=== PATIENT | female | born 1995 | race African-American/Black ===

== ENCOUNTER 2016-04-26 17:06 | Emergency (ER) | payer SELFPAY ==
[~2016-04-26] VITALS: Ht 167.6 cm; Wt 77.1 kg
[2016-04-26 17:48] VITALS: BP 104/61
== END 2016-04-26 18:32 | disposition left against medical advice (07) ==
LOC: ER 17:06
DX: R10.84 Generalized abdominal pain (principal); N93.9 Abnormal uterine and vaginal bleeding, unspecified; Z53.21 Procedure and treatment not carried out due to patient leaving prior to being seen by health care provider
CPT/HCPCS: 81025

== ENCOUNTER 2016-05-13 19:14 | Emergency (ER) | payer SELFPAY ==
[~2016-05-13] VITALS: Ht 167.6 cm; Wt 70.3 kg
[2016-05-13] MEDS ORDERED: IV NORMAL SALINE 1000ML BAG 1,000 ML IV SCH (23:00)
[2016-05-13] MEDS ORDERED: MORPHINE SULFATE 4 MG/ML DISP.SYRIN. IV ONE (23:00)
--- NOTE | 2016-05-14 00:07 | PHYS DOC ---
Past Medical History Past Medical History: Sickle Cell Disease, STD, Other Additional Past Medical Histor: sickle cell Past Surgical History: No Surgical History Alcohol Use: None Drug Use: None Adult General Chief Complaint Chief Complaint: MULTIPLE COMPLAINTS HPI HPI Patient is a 20 year old female who presents with sickle crisis. Patient reports shortly before coming to the ED she started having pain in her right flank, bilateral lower extremities, tight in her chest. She also reports feeling slightly short of breath. She has tried hydrocodone at home with insufficient relief. She denies fever. She says this is typical of pain crisis for her. No other acute complaints. Review of Systems Review of Systems Constitutional: Denies fever or chills Eyes: Denies change in visual acuity or eye pain HENT: Denies nasal congestion or sore throat Respiratory: Shortness of breath Cardiovascular: Intermittent chest tightness GI: Denies abdominal pain, nausea, vomiting, bloody stools or diarrhea : Denies dysuria or hematuria Musculoskeletal: R flank, BLE pain Integument: Denies rash or skin lesions Neurologic: Denies headache, focal weakness or sensory changes Current Medications Current Medications Current Medications Medications (Trade) Dose Ordered Sig/Nicole Start Time Stop Time Status Last Admin Dose Admin Hydromorphone HCl (Dilaudid) 0.5 mg PRN Q1HR PRN 05/14/16 00:15 Morphine Sulfate 6 mg 1X ONCE 05/13/16 23:00 05/13/16 23:01 DC 05/13/16 22:58 6 MG Ondansetron HCl (Zofran) 4 mg PRN Q30MIN PRN 05/14/16 00:15 Sodium Chloride (Iv Sodium Chloride 0.9% 1000ml Bag) 1,000 ml @ 1,000 mls/hr Q1H 05/13/16 23:00 05/13/16 23:59 DC 05/13/16 22:57 1,000 MLS/HR Allergies Allergies Allergies Coded Allergies Type Severity Reaction Last Updated Verified No Known Drug Allergies 05/26/15 No Physical Exam Physical Exam Constitutional: Well developed, well nourished, no acute distress, non-toxic appearance. [] HENT: Normocephalic, atraumatic, bilateral external ears normal, oropharynx moist, no oral exudates, nose normal. [] Eyes: PERRLA, EOMI, conjunctiva normal, no discharge. [] Neck: Normal range of motion, no tenderness, supple, no stridor. [] Cardiovascular:Heart rate regular rhythm, no murmur [] Lungs & Thorax: Bilateral breath sounds clear to auscultation [] Abdomen: Bowel sounds normal, soft, no tenderness, no masses, no pulsatile masses. [] Skin: Warm, dry, no erythema, no rash. [] Back: No tenderness, no CVA tenderness. [] Extremities: No tenderness, no cyanosis, no clubbing, ROM intact, no edema. [] Neurologic: Alert and oriented X 3, normal motor function, normal sensory function, no focal deficits noted. [] Psychologic: Affect normal, judgement normal, mood normal. [] Current Patient Data Vital Signs Vital Signs Date Time Temp Pulse Resp B/P Pulse Ox O2 Delivery O2 Flow Rate FiO2 05/13/16 22:58 20 94 05/13/16 19:21 98.5 98 120/76 Room Air 98.5 Lab Values Laboratory Tests Test 05/13/16 22:06 POC Urine HCG, Qualitative Hcg negative (Negative) EKG EKG EKG (my read): sinus rhythm, rate 81, normal axis, intervals wnl, no acute ST/T changes Radiology/Procedures Radiology/Procedures CXR (my read): No acute abnormality Course & Med Decision Making Course & Med Decision Making Pertinent Labs and Imaging studies reviewed. (See chart for details) Patient is 20-year-old female who presents with sickle crisis. No tachycardia, no hypoxia, very low suspicion for acute chest syndrome. However will check EKG , chest x-ray, labs to evaluate. IV fluids and pain medication ordered for relief of symptoms. I placed ultrasound guided IV as nursing staff was unable to obtain IV access. 20-gauge placed in right AC. Still awaiting lab results at this time. Will turn patient care over to Dr. Santa. Pattie Disclaimer Pattie Disclaimer This electronic medical record was generated, in whole or in part, using a voice recognition dictation system. Departure Departure Referrals: NO PCP (PCP) KAPIL NICOLAS MD May 14, 2016 00:07
[2016-05-14] MEDS ORDERED: ONDANSETRON PF 4 MG/2 ML VIAL. IV PRN (00:15)
[2016-05-14 00:44] LABS: BILIRUBIN,URINE NEGATIVE (NEG); GLUCOSE,URINE NEGATIVE (NEG); NITRITE,URINE NEGATIVE (NEG); PH,URINE 6.5; PROTEIN,URINE NEGATIVE (NEG-TRACE)
[2016-05-14 00:57] LABS: BASO # 0.1 x10^3/uL (0.0-0.2); BASO % 1 % (0-3); EOS % 2 % (0-3); HEMATOCRIT 25.2 % (36.0-47.0); HEMOGLOBIN 8.5 g/dL (12.0-15.5); LYMPH % 39 % (24-48); MEAN CORPUSCULAR HEMOGLOBIN 31 pg (25-35); MEAN CORPUSCULAR HGB CONC 34 g/dL (31-37); MEAN CORPUSCULAR VOLUME 92 fL (79-100); MONO % 8 % (0-9); NEUT % 51 % (31-73); PLATELET COUNT 147 x10^3/uL (140-400); RED BLOOD COUNT 2.74 x10^6/uL (3.50-5.40); RED CELL DISTRIBUTION WIDTH 16.5 % (11.5-14.5); WHITE BLOOD COUNT 10.2 x10^3/uL (4.0-11.0)
[2016-05-14 01:08] LABS: BACTERIA,URINE MODERATE /HPF (0-FEW); RBC,URINE >40 /HPF (0-2); SQUAMOUS EPITHELIAL CELL,UR MOD /LPF; WBC,URINE >40 /HPF (0-4)
[2016-05-14 01:11] LABS: CALCIUM 8.8 mg/dL (8.5-10.1); CREATININE 0.5 mg/dL (0.6-1.0); GFR 192.3; POTASSIUM 3.9 mmol/L (3.5-5.1)
[2016-05-14 01:17] LABS: DIRECT BILIRUBIN 0.3 mg/dL (0.0-0.2); TOTAL BILIRUBIN 2.5 mg/dL (0.2-1.0); TOTAL PROTEIN 8.1 g/dL (6.4-8.2)
[2016-05-14] MEDS: HYDROMORPHONE 2 MG/ML VIAL. IV PRN ×2 (01:25→02:48)
[2016-05-14] MEDS ORDERED: CIPR500T PO (02:11)
[2016-05-14 03:00] VITALS: BP 109/57
[2016-05-14 03:37] LABS: MICROCYTOSIS SLIGHT; PLT ESTIMATE ADEQUATE (ADEQUATE); POIKILOCYTOSIS MOD; POLYCHROMASIA SLIGHT; SICKLE CELLS MOD
--- NOTE | 2016-05-14 08:01 | RAD ---
Indication: Short of breath beginning this morning, secondhand smoke exposure. Technique: Two-view chest radiograph was obtained. No comparison is available. Findings: The lungs are clear. The cardiopulmonary silhouette is within normal limits. There is no pleural effusion. The bony structures are intact. Impression: No acute thoracic findings.
--- NOTE | 2016-05-14 09:11 | EKG ---
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 RI6.01 No previous ECG available for comparison Electronically Signed On 05-14-2016 20:33:00 CDT by Sabine Portillo
== END 2016-05-14 02:50 | disposition home or self-care (01) ==
LOC: ER 19:14
DX: N39.0 Urinary tract infection, site not specified (principal); R07.89 Other chest pain; R06.02 Shortness of breath; D64.9 Anemia, unspecified; F17.200 Nicotine dependence, unspecified, uncomplicated
CPT/HCPCS: 36415; 71020; 80048; 80076; 81001; 81025; 84484; 85007; 85027; 85045; 86850; 86900; 86901; 87086; 93005; 96361; 96374; 96375; 96376; 99285; J1170; J2270; J2405; J7030

== ENCOUNTER 2016-06-14 11:00 | Emergency (ER) | payer SELFPAY ==
[~2016-06-14] VITALS: Ht 167.6 cm; Wt 74.8 kg
[~2016-06-14 11:00] MED LIST: CIPR500T PO
[2016-06-14 12:07] LABS: BILIRUBIN,URINE NEGATIVE (NEG); GLUCOSE,URINE NEGATIVE (NEG); NITRITE,URINE NEGATIVE (NEG); PROTEIN,URINE NEGATIVE (NEG-TRACE)
--- NOTE | 2016-06-14 12:11 | PHYS DOC ---
Past Medical History Past Medical History: Sickle Cell Disease, STD, Other Additional Past Medical Histor: sickle cell Past Surgical History: No Surgical History Alcohol Use: None Drug Use: None Adult General Chief Complaint Chief Complaint: ABDOMINAL PAIN HPI HPI Patient is a 20 year old female with history of sickle cell trait who presents today with vaginal bleeding and lower abdominal cramping that began yesterday. Patient states her last menstrual cycle was January 2016, she states she got Depo-Provera shot in February 2016. She states she's not had a menstrual cycle since February. She states she is due for her next Depo-Provera shot between now and Jun 27 2016. Patient states she is bleeding more than normal, she states she has used 6 feminine pad since yesterday. Review of Systems Review of Systems Constitutional: Denies fever or chills [] Eyes: Denies change in visual acuity, redness, or eye pain [] HENT: Denies nasal congestion or sore throat [] Respiratory: Denies cough or shortness of breath [] Cardiovascular: No additional information not addressed in HPI [] GI: Lower abdominal cramping and vaginal bleeding : Denies dysuria or hematuria [] Musculoskeletal: Denies back pain or joint pain [] Integument: Denies rash or skin lesions [] Neurologic: Denies headache, focal weakness or sensory changes [] Endocrine: Denies polyuria or polydipsia [] Allergies Allergies Allergies Coded Allergies Type Severity Reaction Last Updated Verified No Known Drug Allergies 05/26/15 No Physical Exam Physical Exam Constitutional: Well developed, well nourished, no acute distress, non-toxic appearance. [] HENT: Normocephalic, atraumatic, bilateral external ears normal, oropharynx moist, no oral exudates, nose normal. [] Eyes: PERRLA, EOMI, conjunctiva normal, no discharge. [] Neck: Normal range of motion, no tenderness, supple, no stridor. [] Cardiovascular:Heart rate regular rhythm, no murmur [] Lungs & Thorax: Bilateral breath sounds clear to auscultation [] Abdomen: Bowel sounds normal, soft, no tenderness, no masses, no pulsatile masses. [] Pelvic exam External pelvic appears normal, cervix is closed, no CMT, small amount of bright red blood noted in the vaginal vault, no adnexal tenderness. Skin: Warm, dry, no erythema, no rash. [] Back: No tenderness, no CVA tenderness. [] Extremities: No tenderness, no cyanosis, no clubbing, ROM intact, no edema. [] Neurologic: Alert and oriented X 3, normal motor function, normal sensory function, no focal deficits noted. [] Psychologic: Affect normal, judgement normal, mood normal. [] Current Patient Data Vital Signs Vital Signs Date Time Temp Pulse Resp B/P Pulse Ox O2 Delivery O2 Flow Rate FiO2 06/14/16 11:06 97.9 62 18 129/76 100 Room Air 97.9 Lab Values Laboratory Tests Test 06/14/16 11:30 Urine Collection Type Void Urine Color Yellow Urine Clarity Clear Urine pH 6.0 Urine Specific [place] <=1.005 Urine Protein Negativemg/dL (NEG-TRACE) Urine Glucose (UA) Negativemg/dL (NEG) Urine Ketones (Stick) Negativemg/dL (NEG) Urine Blood Large (NEG) Urine Nitrite Negative (NEG) Urine Bilirubin Negative (NEG) Urine Urobilinogen Dipstick 1.0mg/dL (0.2 mg/dL) Urine Leukocyte Esterase Trace (NEG) Urine RBC 3-5/HPF (0-2) Urine WBC 5-10/HPF (0-4) Urine Squamous Epithelial Cells Few/LPF Urine Bacteria Few/HPF (0-FEW) Urine Mucus Slight/LPF Microbiology 06/14/16 Wet Prep - Final, Complete EKG EKG [] Radiology/Procedures Radiology/Procedures [] Course & Med Decision Making Course & Med Decision Making Pertinent Labs and Imaging studies reviewed. (See chart for details) Patient is in the ED with complaints of vaginal bleeding and cramping that began yesterday. Her last menstrual cycle was January 2016, she is on Depo- Provera shots, she had the last shot in February of 2016, from her presentation this is dysfunctional uterine bleeding probably occurring as a result of the Depo-Provera shot wearing out. She is due for one, I recommended she follows up with her OB to get the shot as it will help with the bleeding. She had small amount of vaginal bleeding on exam. Negative urine hCG, wet prep with no acute findings, chem 8 with hemoglobin of 9.5 HCT 28. Urine analysis is negative for infection. Patient was encouraged to take iron tablets to boost her hgb. She has no other symptoms. She'll follow-up with her RETREAD TECHNICIAN. Pattie Disclaimer Pattie Disclaimer This electronic medical record was generated, in whole or in part, using a voice recognition dictation system. Departure Departure Impression: Primary Impression: Dysfunctional uterine bleeding Disposition: HOME, SELF-CARE Condition: STABLE Referrals: NO PCP (PCP) SWAPNA MORA MD Follow-up with the provided RETREAD TECHNICIAN or your own RETREAD TECHNICIAN in 1-7 days Patient Instructions: Uterine Bleeding, Dysfunctional, [id number] Additional Instructions: You were seen for dysfunctional uterine bleeding. This could occur as a result of the Depo-Provera shot wearing out. Please consider getting this as soon as possible. Please increase your dietary iron intake because your hemoglobin was 9.5, normal hemoglobin is 12-15. Please consider taking vitamins with iron. You can increase your dietary iron intake through foods like red meats. Come back to the ED symptoms worsen especially if you start soaking more than 1 feminine pad an hour. DRALYN CARABALLO LOCKSTITCH SLEEVE MAKER Jun 14, 2016 12:11
[2016-06-14 12:15] LABS: BACTERIA,URINE FEW /HPF (0-FEW); SQUAMOUS EPITHELIAL CELL,UR FEW /LPF
[2016-06-14 12:57] VITALS: BP 105/51
== END 2016-06-14 12:57 | disposition home or self-care (01) ==
LOC: ER 11:00
DX: N93.8 Other specified abnormal uterine and vaginal bleeding (principal); R10.30 Lower abdominal pain, unspecified; Z86.2 Personal history of diseases of the blood and blood-forming organs and certain disorders involving the immune mechanism
CPT/HCPCS: 81001; 84703; 87491; 87591; 99284; Q0111; 81025

== ENCOUNTER 2016-09-11 20:47 | Emergency (ER) | payer SELFPAY ==
[~2016-09-11] VITALS: Ht 167.6 cm; Wt 74.8 kg
[2016-09-11] MEDS ORDERED: HYDROmorphone 2 MG/ML VIAL ONE (21:27)
[2016-09-11] MEDS ORDERED: ONDANSETRON PF 4 MG/2 ML VIAL. ONE (21:27)
[2016-09-11] MEDS ORDERED: ONDANSETRON PF 4 MG/2 ML VIAL. IV ONE (21:30)
[2016-09-11] MEDS ORDERED: IV NORMAL SALINE 1000ML BAG 1,000 ML IV SCH (21:30)
[2016-09-11] MEDS: HYDROmorphone 2 MG/ML VIAL IV/SQ PRN ×3 (21:32→23:34)
[2016-09-11 21:33] LABS: BASO # 0.1 x10^3/uL (0.0-0.2); BASO % 1 % (0-3); EOS % 2 % (0-3); HEMATOCRIT 24.4 % (36.0-47.0); HEMOGLOBIN 8.4 g/dL (12.0-15.5); LYMPH # 3.3 x10^3/uL (1.0-4.8); LYMPH % 24 % (24-48); MEAN CORPUSCULAR HEMOGLOBIN 30 pg (25-35); MEAN CORPUSCULAR HGB CONC 35 g/dL (31-37); MEAN CORPUSCULAR VOLUME 88 fL (79-100); MONO % 7 % (0-9); NEUT % 67 % (31-73); PLATELET COUNT 390 x10^3/uL (140-400); RED BLOOD COUNT 2.78 x10^6/uL (3.50-5.40); RED CELL DISTRIBUTION WIDTH 18.4 % (11.5-14.5); RETIC COUNT 9.6 % (0.5-2.5); WHITE BLOOD COUNT 13.8 x10^3/uL (4.0-11.0)
[2016-09-11 21:38] LABS: ANION GAP 11 (6-14); BLOOD UREA NITROGEN 5 mg/dL (7-20); CALCIUM 9.1 mg/dL (8.5-10.1); CARBON DIOXIDE 26 mmol/L (21-32); CHLORIDE 103 mmol/L (98-107); CREATININE 0.6 mg/dL (0.6-1.0); GFR 155.8; GLUCOSE 93 mg/dL (70-99); POTASSIUM 3.9 mmol/L (3.5-5.1); SODIUM 140 mmol/L (136-145)
--- NOTE | 2016-09-11 21:40 | PHYS DOC ---
Past Medical History Past Medical History: Sickle Cell Disease, STD, Other Additional Past Medical Histor: sickle cell Past Surgical History: No Surgical History Alcohol Use: None Drug Use: None Adult General Chief Complaint Chief Complaint: BACK PAIN OR INJURY HPI HPI Patient is a 20 year old female who presents with complaint of generalized body aches. Patient states that she has history of sickle cell disease and has had history of pain crises. Patient states her symptoms are similar to previous pain crisis. Patient rates pain currently as 10 out of 10. Patient states that her pain radiates from her low back into her legs, abdomen, and chest. Patient denies any fevers. Patient currently does not follow with a primary doctor and does not take medications at home. Patient states she previously followed at [facility] sickle cell clinic but stopped following as she turned 19. Review of Systems Review of Systems Constitutional: Denies fever or chills [] Eyes: Denies change in visual acuity, redness, or eye pain [] HENT: Denies nasal congestion or sore throat [] Respiratory: Denies cough or shortness of breath [] Cardiovascular: Chest pain [] GI: Abdominal pain, denies nausea, vomiting, bloody stools or diarrhea [] : Denies dysuria or hematuria [] Musculoskeletal: Back pain, bilateral lower extremity pain [] Integument: Denies rash or skin lesions [] Neurologic: Denies headache, focal weakness or sensory changes [] Current Medications Current Medications Current Medications Medications (Trade) Dose Ordered Sig/Nicole Start Time Stop Time Status Last Admin Dose Admin Hydromorphone HCl (Dilaudid) 2 mg STK-MED ONCE 09/11/16 21:27 09/11/16 21:28 DC Ondansetron HCl (Zofran) 4 mg STK-MED ONCE 09/11/16 21:27 09/11/16 21:28 DC Sodium Chloride 1,000 ml @ 1,000 mls/hr Q1H 09/11/16 21:30 09/11/16 22:29 DC 09/11/16 21:30 1,000 MLS/HR Allergies Allergies Allergies Coded Allergies Type Severity Reaction Last Updated Verified No Known Drug Allergies 05/26/15 No Physical Exam Physical Exam Constitutional: Well developed, well nourished, afebrile, no acute distress, non -toxic appearance. [] HENT: Normocephalic, atraumatic, bilateral external ears normal, oropharynx moist, no oral exudates, nose normal. [] Eyes: PERRLA, EOMI, conjunctiva normal, no discharge. [] Neck: Normal range of motion, no tenderness, supple, no stridor. [] Cardiovascular:Heart rate regular rhythm, no murmur [] Lungs & Thorax: Bilateral breath sounds clear to auscultation [] Abdomen: Bowel sounds normal, soft, no tenderness, no masses, no pulsatile masses. [] Skin: Warm, dry, no erythema, no rash. [] Back: Mild tenderness in bilateral lower lumbar paraspinous muscles, no midline tenderness no CVA tenderness. [] Extremities: Mild tenderness to palpation in bilateral proximal and lower leg muscles, no cyanosis, no clubbing, ROM intact, no edema. [] Neurologic: Alert and oriented X 3, normal motor function, normal sensory function, no focal deficits noted. [] Current Patient Data Vital Signs Vital Signs Date Time Temp Pulse Resp B/P (MAP) Pulse Ox O2 Delivery O2 Flow Rate FiO2 09/11/16 22:16 16 09/11/16 20:58 98.2 78 110/69 (83) 97 Room Air 98.2 Lab Values Laboratory Tests Test 09/11/16 20:55 09/11/16 21:09 09/11/16 21:45 POC Urine HCG, Qualitative Hcg negative (Negative) White Blood Count 13.8 x10^3/uL (4.0-11.0) H Red Blood Count 2.78 x10^6/uL (3.50-5.40) L Hemoglobin 8.4 g/dL (12.0-15.5) L Hematocrit 24.4 % (36.0-47.0) L Mean Corpuscular Volume 88 fL (79-100) Mean Corpuscular Hemoglobin 30 pg (25-35) Mean Corpuscular Hemoglobin Concent 35 g/dL (31-37) Red Cell Distribution Width 18.4 % (11.5-14.5) H Platelet Count 390 x10^3/uL (140-400) # Neutrophils (%) (Auto) 67 % (31-73) Lymphocytes (%) (Auto) 24 % (24-48) Monocytes (%) (Auto) 7 % (0-9) Eosinophils (%) (Auto) 2 % (0-3) Basophils (%) (Auto) 1 % (0-3) Neutrophils # (Auto) 9.2 x10^3uL (1.8-7.7) H Lymphocytes # (Auto) 3.3 x10^3/uL (1.0-4.8) Monocytes # (Auto) 0.9 x10^3/uL (0.0-1.1) Eosinophils # (Auto) 0.3 x10^3/uL (0.0-0.7) Basophils # (Auto) 0.1 x10^3/uL (0.0-0.2) Toxic Granulation Slight Toxic Vacuolation Mod Platelet Estimate Adequate (ADEQUATE) Polychromasia Slight Anisocytosis Slight Sickle Cells Mod Target Cells Mod Schistocytes Occ Reticulocyte Count (auto) 9.6 % (0.5-2.5) H Sodium Level 140 mmol/L (136-145) Potassium Level 3.9 mmol/L (3.5-5.1) Chloride Level 103 mmol/L (98-107) Carbon Dioxide Level 26 mmol/L (21-32) Anion Gap 11 (6-14) Blood Urea Nitrogen 5 mg/dL (7-20) L Creatinine 0.6 mg/dL (0.6-1.0) Estimated GFR (Cockcroft-Gault) 155.8 Glucose Level 93 mg/dL (70-99) Calcium Level 9.1 mg/dL (8.5-10.1) Total Bilirubin 3.2 mg/dL (0.2-1.0) H Direct Bilirubin < 0.1 mg/dL (0.0-0.2) Aspartate Amino Transferase (AST) 35 U/L (15-37) Alanine Aminotransferase (ALT) 12 U/L (14-59) L Alkaline Phosphatase 61 U/L (46-116) Total Protein 8.6 g/dL (6.4-8.2) H Albumin 4.1 g/dL (3.4-5.0) Urine Collection Type Unknown Urine Color Yellow Urine Clarity Clear Urine pH 7.0 Urine Specific [place] 1.010 Urine Protein 30 mg/dL (NEG-TRACE) Urine Glucose (UA) Negative mg/dL (NEG) Urine Ketones (Stick) Negative mg/dL (NEG) Urine Blood Trace (NEG) Urine Nitrite Negative (NEG) Urine Bilirubin Negative (NEG) Urine Urobilinogen Dipstick 1.0 mg/dL (0.2 mg/dL) Urine Leukocyte Esterase Large (NEG) Urine RBC 1-2 /HPF (0-2) Urine WBC >40 /HPF (0-4) Urine Squamous Epithelial Cells Mod /LPF Urine Bacteria Moderate /HPF (0-FEW) Laboratory Tests 09/11/16 21:09 Laboratory Tests 09/11/16 21:09 EKG EKG Interpreted by me: Heart rate 54, sinus rhythm, normal intervals, normal axis, no acute ST/T-wave abnormalities present [] Radiology/Procedures Radiology/Procedures Not performed [] Course & Med Decision Making Course & Med Decision Making Pertinent Labs and Imaging studies reviewed. (See chart for details) Patient received IV fluids and IV Dilaudid in the emergency department with improvement in pain. The patient's lab work appears to be stable compared to previous. The patient currently is in a pain crisis that can be managed as outpatient. The patient will be written for Percocet to be taken as outpatient as needed for pain. Patient referred to [facility] family medicine for primary care. Advised return emergency department for any worsening symptoms. Patient voiced understanding and in agreement with treatment plan. Dragon Disclaimer Dragon Disclaimer This electronic medical record was generated, in whole or in part, using a voice recognition dictation system. Departure Departure Impression: Primary Impression: Sickle cell pain crisis Disposition: 01 HOME, SELF-CARE Condition: IMPROVED Referrals: NO PCP (PCP) Patient Instructions: Sickle Cell Pain Crisis Additional Instructions: Follow-up in 3-5 days with primary care for reevaluation. Return to the emergency department for any worsening symptoms. Scripts Oxycodone/Apap 5-325 (PERCOCET 5-325 MG TABLET) 1 Each Tablet 1-2 TAB PO Q4-6HRS Y for PAIN, #30 TAB Prov: HILARY LE MD 09/11/16 HILARY LE MD Sep 11, 2016 21:40
[2016-09-11 21:45] LABS: ALK PHOS 61 U/L (46-116); AST (SGOT) 35 U/L (15-37); DIRECT BILIRUBIN < 0.1 mg/dL (0.0-0.2); TOTAL BILIRUBIN 3.2 mg/dL (0.2-1.0); TOTAL PROTEIN 8.6 g/dL (6.4-8.2)
[2016-09-11 21:53] LABS: ANISOCYTOSIS SLIGHT; PLT ESTIMATE ADEQUATE (ADEQUATE); POLYCHROMASIA SLIGHT; SCHISTOCYTES OCC; SICKLE CELLS MOD; TARGET CELLS MOD; TOXIC GRANULATION SLIGHT; TOXIC VACUOLATION MOD
[2016-09-11 21:57] LABS: BILIRUBIN,URINE NEGATIVE (NEG); GLUCOSE,URINE NEGATIVE (NEG); NITRITE,URINE NEGATIVE (NEG); PROTEIN,URINE 30 mg/dL (NEG-TRACE)
[2016-09-11 22:03] LABS: ALT (SGPT) 12 U/L (14-59)
[2016-09-11 22:08] LABS: ALBUMIN 4.1 g/dL (3.4-5.0)
[2016-09-11 22:08] LABS: BACTERIA,URINE MODERATE /HPF (0-FEW); SQUAMOUS EPITHELIAL CELL,UR MOD /LPF; WBC,URINE >40 /HPF (0-4)
[2016-09-11 22:56] VITALS: BP 96/52
[2016-09-11] MEDS ORDERED: OXYC-323 PO (23:06)
--- NOTE | 2016-09-14 08:12 | EKG ---
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
== END 2016-09-11 23:43 | disposition home or self-care (01) ==
LOC: ER 20:47
DX: D57.00 Hb-SS disease with crisis, unspecified (principal); M54.5 Low back pain; R07.89 Other chest pain
CPT/HCPCS: 36415; 80048; 80076; 81001; 81025; 85007; 85027; 85045; 87086; 93005; 96361; 96374; 96375; 96376; 99285; J1170; J2405; J7030

== ENCOUNTER 2016-10-18 11:02 | Emergency (ER) | payer SELFPAY ==
[~2016-10-18] VITALS: Ht 165.1 cm; Wt 74.8 kg
[~2016-10-18 11:02] MED LIST changes: +FOLI1TAB16 PO; +HYDR-2766 PO; +OXYC-323 PO
[2016-10-18 11:12] VITALS: BP 114/60
[2016-10-18 12:01] LABS: BILIRUBIN,URINE NEGATIVE (NEG); GLUCOSE,URINE NEGATIVE (NEG); NITRITE,URINE NEGATIVE (NEG); PH,URINE 6.5; PROTEIN,URINE 30 mg/dL (NEG-TRACE)
[2016-10-18 12:18] LABS: BACTERIA,URINE FEW /HPF (0-FEW); RBC,URINE 0 /HPF (0-2); SQUAMOUS EPITHELIAL CELL,UR MOD /LPF
[2016-10-18] MEDS ORDERED: CEPH500T PO (12:38)
--- NOTE | 2016-10-18 12:38 | PHYS DOC ---
Past Medical History Past Medical History: Sickle Cell Disease, STD, Other Additional Past Medical Histor: sickle cell Past Surgical History: No Surgical History Alcohol Use: None Drug Use: None Adult General Chief Complaint Chief Complaint: URINARY FREQUENCY HPI HPI Patient is a 20 year old female presents emergency department stating that she has been having right and left abdominal pain and discomfort. She states when she lay down last site she is having right side pain. She states this morning she got up she was having left-side pain. Patient denies abdominal pain or cramping. Patient denies any vaginal discharge denies any vaginal bleeding. She states that she's been having urinary frequency. She denies any fever, chills she does states been nauseated. Patient has not taken anything for pain or discomfort. Patient states her last normal menstrual period was in August. Review of Systems Review of Systems Constitutional: Denies fever or chills [] Eyes: Denies change in visual acuity, redness, or eye pain [] HENT: Denies nasal congestion or sore throat [] Respiratory: Denies cough or shortness of breath [] Cardiovascular: No additional information not addressed in HPI [] GI: Denies abdominal pain, vomiting, bloody stools or diarrhea. Complaint of nausea : dysuria denies hematuria [] Musculoskeletal: Denies back pain or joint pain [] Integument: Denies rash or skin lesions [] Neurologic: Denies headache, focal weakness or sensory changes [] Endocrine: Denies polyuria or polydipsia [] Allergies Allergies Allergies Coded Allergies Type Severity Reaction Last Updated Verified No Known Drug Allergies 05/26/15 No Physical Exam Physical Exam Constitutional: Well developed, well nourished, no acute distress, non-toxic appearance. [] HENT: Normocephalic, atraumatic, bilateral external ears normal, oropharynx moist, no oral exudates, nose normal. [] Eyes: PERRLA, EOMI, conjunctiva normal, no discharge. [] Neck: Normal range of motion, no tenderness, supple, no stridor. [] Cardiovascular:Heart rate regular rhythm, no murmur [] Lungs & Thorax: Bilateral breath sounds clear to auscultation [] Abdomen: Bowel sounds hypoactive, soft, no tenderness, no masses, no pulsatile masses. [] Skin: Warm, dry, no erythema, no rash. [] Back: No tenderness Extremities: No tenderness, no cyanosis, no clubbing, ROM intact, no edema. [] Neurologic: Alert and oriented X 3, normal motor function, normal sensory function, no focal deficits noted. [] Psychologic: Affect normal, judgement normal, mood normal. [] Current Patient Data Vital Signs Vital Signs Date Time Temp Pulse Resp B/P (MAP) Pulse Ox O2 Delivery O2 Flow Rate FiO2 10/18/16 11:12 98.6 87 16 100 Room Air 98.6 Lab Values Laboratory Tests Test 10/18/16 10:25 10/18/16 11:10 POC Urine HCG, Qualitative Hcg positive (Negative) Urine Collection Type Unknown Urine Color [place]ар[place] Urine Clarity Clear Urine pH 6.5 Urine Specific [place] 1.015 Urine Protein 30 mg/dL (NEG-TRACE) Urine Glucose (UA) Negative mg/dL (NEG) Urine Ketones (Stick) Negative mg/dL (NEG) Urine Blood Negative (NEG) Urine Nitrite Negative (NEG) Urine Bilirubin Negative (NEG) Urine Urobilinogen Dipstick 1.0 mg/dL (0.2 mg/dL) Urine Leukocyte Esterase Large (NEG) Urine RBC 0 /HPF (0-2) Urine WBC 5-10 /HPF (0-4) Urine Squamous Epithelial Cells Mod /LPF Urine Amorphous Sediment Present /HPF Urine Bacteria Few /HPF (0-FEW) EKG EKG [] Radiology/Procedures Radiology/Procedures [] Course & Med Decision Making Course & Med Decision Making Pertinent Labs and Imaging studies reviewed. (See chart for details) Urine was positive for , positive for urinary tract infection. Patient be placed on Keflex. Recommended plenty of water and cranberry juice. Avoid cranberry juice cocktail, carbonate beverages, citrus fruits and alcohol sees her considered irritants to the bladder. Patient will be discharged home in stable condition she'll be provided with a HIGH SCHOOL FOOTBALL COACH to follow up with as she states she does not have one. Patient was provided with signs and symptoms to return back to emergency department with. Patient agrees with discharge instructions treatment regimens and follow-up recommendations. All questions and concerns was answered at patient's bedside. [] Dragon Disclaimer Dragon Disclaimer This electronic medical record was generated, in whole or in part, using a voice recognition dictation system. Departure Departure Impression: Primary Impression: Urinary tract infection Additional Impression: Disposition: HOME, SELF-CARE Condition: STABLE Referrals: NO PCP (PCP) BIBI HICKMAN MD Patient Instructions: ABCs of , Urinary Tract Infection, [id number] Additional Instructions: Activity as tolerated. Medication as prescribed. vitamins over the counter as directed by manufacture. Benadryl will also help with your nasal congestion. Drink plenty of fluids such as water and cranberry juice. Avoid cranberry juice cocktail, carbonated beverages, citrus fruits, alcohol, and caffeine as these are all considered irritants to the bladder. Follow-up with HIGH SCHOOL FOOTBALL COACH within the next week. Return back to emergency prior signs symptoms of become worse. Scripts Cephalexin (CEPHALEXIN) 500 Mg Tablet 1 TAB PO BID, #20 TAB Prov: RACHID TAPIA APRN 10/18/16 Problem Qualifiers Primary Impression: Urinary tract infection Urinary tract infection type: site unspecified Hematuria presence: without hematuria Qualified Codes: N39.0 - Urinary tract infection, site not specified Additional Impression: Weeks of gestation: less than 8 weeks Qualified Codes: Z3A.01 - Less than 8 weeks gestation of RACHID TAPIA APRN Oct 18, 2016 12:38
== END 2016-10-18 12:58 | disposition home or self-care (01) ==
LOC: ER 11:02
DX: O23.41 Unspecified infection of urinary tract in pregnancy, first trimester (principal); Z3A.01 Less than 8 weeks gestation of pregnancy
CPT/HCPCS: 81001; 81025; 87086; 99284

== ENCOUNTER 2016-11-21 00:15 | Emergency (ER) | payer SELFPAY ==
[~2016-11-21] VITALS: Ht 170.2 cm; Wt 74.8 kg
[~2016-11-21 00:15] MED LIST changes: +CEPH500T PO
[2016-11-21 00:28] VITALS: BP 109/51
[2016-11-21 00:42] LABS: BILIRUBIN,URINE NEGATIVE (NEG); GLUCOSE,URINE NEGATIVE (NEG); NITRITE,URINE NEGATIVE (NEG); PROTEIN,URINE NEGATIVE (NEG-TRACE)
[2016-11-21] MEDS ORDERED: IV NORMAL SALINE 1000ML BAG 1,000 ML IV ONE (00:45)
[2016-11-21 00:48] LABS: BACTERIA,URINE FEW /HPF (0-FEW); RBC,URINE OCC /HPF (0-2); SQUAMOUS EPITHELIAL CELL,UR MOD /LPF
[2016-11-21 00:59] LABS: BASO # 0.1 x10^3/uL (0.0-0.2); BASO % 1 % (0-3); EOS % 1 % (0-3); HEMATOCRIT 22.9 % (36.0-47.0); HEMOGLOBIN 7.7 g/dL (12.0-15.5); LYMPH # 3.4 x10^3/uL (1.0-4.8); LYMPH % 23 % (24-48); MEAN CORPUSCULAR HEMOGLOBIN 31 pg (25-35); MEAN CORPUSCULAR HGB CONC 34 g/dL (31-37); MEAN CORPUSCULAR VOLUME 90 fL (79-100); MONO % 7 % (0-9); NEUT % 69 % (31-73); PLATELET COUNT 309 x10^3/uL (140-400); RED BLOOD COUNT 2.53 x10^6/uL (3.50-5.40); RED CELL DISTRIBUTION WIDTH 16.5 % (11.5-14.5); WHITE BLOOD COUNT 14.9 x10^3/uL (4.0-11.0)
[2016-11-21] MEDS ORDERED: ACETAMINOPHEN 325 MG TABLET. PO ONE (01:00)
[2016-11-21 01:12] LABS: CALCIUM 9.5 mg/dL (8.5-10.1); CREATININE 0.5 mg/dL (0.6-1.0); GFR 190.3; POTASSIUM 3.7 mmol/L (3.5-5.1)
[2016-11-21 01:17] LABS: ALBUMIN/GLOBULIN RATIO 0.9 (1.0-1.7); TOTAL BILIRUBIN 1.9 mg/dL (0.2-1.0); TOTAL PROTEIN 8.5 g/dL (6.4-8.2)
--- NOTE | 2016-11-21 02:01 | RAD ---
INDICATION: PELVIC PAIN PREG COMPARISON: None. TECHNIQUE: Grayscale and color ultrasound images uterus and adnexa. FINDINGS: Uterus: 120 x 85 x 83 mm. Intrauterine is identified. Positive heartbeat of 173. [place]-rump length 42 mm, 11 week 1 day. Too early to assess placenta. Right Ovary: 28 x 18 x 17 mm. Left Ovary: 24 x 19 x 16 mm. Vascular flow identified to bilateral ovaries. IMPRESSION: 1. Vascular flow seen to the bilateral maternal ovaries. Intrauterine is identified with estimated gestational age of 11 weeks and 1 day and estimated due date of 06/11/2017. Recommend routine anomaly screening at 18-22 weeks. Electronically signed by: Josh Tran MD (11/21/2016 1:57 AM) [facility]
[2016-11-21] MEDS ORDERED: PNV1TABL34 PO (02:10)
--- NOTE | 2016-11-21 02:11 | PHYS DOC ---
Past Medical History Past Medical History: Sickle Cell Disease, STD Additional Past Medical Histor: sickle cell Past Surgical History: No Surgical History Alcohol Use: None Drug Use: None Adult General Chief Complaint Chief Complaint: ABDOMINAL PAIN IN HPI HPI Patient is a 21 year old [f__sex] who presents with [] Review of Systems Review of Systems Constitutional: Denies fever or chills [] Eyes: Denies change in visual acuity, redness, or eye pain [] HENT: Denies nasal congestion or sore throat [] Respiratory: Denies cough or shortness of breath [] Cardiovascular: No additional information not addressed in HPI [] GI: Denies abdominal pain, nausea, vomiting, bloody stools or diarrhea [] : Denies dysuria or hematuria [] Musculoskeletal: Denies back pain or joint pain [] Integument: Denies rash or skin lesions [] Neurologic: Denies headache, focal weakness or sensory changes [] Endocrine: Denies polyuria or polydipsia [] Current Medications Current Medications Current Medications Medications (Trade) Dose Ordered Sig/Nicole Start Time Stop Time Status Last Admin Dose Admin Acetaminophen (Tylenol) 650 mg 1X ONCE 11/21/16 01:00 11/21/16 01:01 DC 11/21/16 01:20 650 MG Sodium Chloride 1,000 ml @ 1,000 mls/hr 1X ONCE 11/21/16 00:45 11/21/16 01:44 DC 11/21/16 01:20 1,000 MLS/HR Allergies Allergies Allergies Coded Allergies Type Severity Reaction Last Updated Verified No Known Drug Allergies 05/26/15 No Physical Exam Physical Exam Constitutional: Well developed, well nourished, no acute distress, non-toxic appearance. [] HENT: Normocephalic, atraumatic, bilateral external ears normal, oropharynx moist, no oral exudates, nose normal. [] Eyes: PERRLA, EOMI, conjunctiva normal, no discharge. [] Neck: Normal range of motion, no tenderness, supple, no stridor. [] Cardiovascular:Heart rate regular rhythm, no murmur [] Lungs & Thorax: Bilateral breath sounds clear to auscultation [] Abdomen: Bowel sounds normal, soft, no tenderness, no masses, no pulsatile masses. [] Skin: Warm, dry, no erythema, no rash. [] Back: No tenderness, no CVA tenderness. [] Extremities: No tenderness, no cyanosis, no clubbing, ROM intact, no edema. [] Neurologic: Alert and oriented X 3, normal motor function, normal sensory function, no focal deficits noted. [] Psychologic: Affect normal, judgement normal, mood normal. [] Current Patient Data Vital Signs Vital Signs Date Time Temp Pulse Resp B/P (MAP) Pulse Ox O2 Delivery O2 Flow Rate FiO2 11/21/16 00:28 98.6 89 16 109/51 (70) 100 Room Air 98.6 Lab Values Laboratory Tests Test 11/21/16 00:30 11/21/16 00:36 11/21/16 00:50 Urine Collection Type Unknown Urine Color Yellow Urine Clarity Cloudy Urine pH 6.0 Urine Specific [place] 1.010 Urine Protein Negative mg/dL (NEG-TRACE) Urine Glucose (UA) Negative mg/dL (NEG) Urine Ketones (Stick) Negative mg/dL (NEG) Urine Blood Negative (NEG) Urine Nitrite Negative (NEG) Urine Bilirubin Negative (NEG) Urine Urobilinogen Dipstick 1.0 mg/dL (0.2 mg/dL) Urine Leukocyte Esterase Small (NEG) Urine RBC Occ /HPF (0-2) Urine WBC 5-10 /HPF (0-4) Urine Squamous Epithelial Cells Mod /LPF Urine Bacteria Few /HPF (0-FEW) Urine Mucus Slight /LPF POC Urine HCG, Qualitative Hcg positive (Negative) White Blood Count 14.9 x10^3/uL (4.0-11.0) H Red Blood Count 2.53 x10^6/uL (3.50-5.40) L Hemoglobin 7.7 g/dL (12.0-15.5) L Hematocrit 22.9 % (36.0-47.0) L Mean Corpuscular Volume 90 fL (79-100) Mean Corpuscular Hemoglobin 31 pg (25-35) Mean Corpuscular Hemoglobin Concent 34 g/dL (31-37) Red Cell Distribution Width 16.5 % (11.5-14.5) H Platelet Count 309 x10^3/uL (140-400) Neutrophils (%) (Auto) 69 % (31-73) Lymphocytes (%) (Auto) 23 % (24-48) L Monocytes (%) (Auto) 7 % (0-9) Eosinophils (%) (Auto) 1 % (0-3) Basophils (%) (Auto) 1 % (0-3) Neutrophils # (Auto) 10.3 x10^3uL (1.8-7.7) H Lymphocytes # (Auto) 3.4 x10^3/uL (1.0-4.8) Monocytes # (Auto) 1.0 x10^3/uL (0.0-1.1) Eosinophils # (Auto) 0.1 x10^3/uL (0.0-0.7) Basophils # (Auto) 0.1 x10^3/uL (0.0-0.2) Maternal Serum HCG Beta Subunit 95610 mIU/mL (0-5) H Sodium Level 135 mmol/L (136-145) L Potassium Level 3.7 mmol/L (3.5-5.1) Chloride Level 101 mmol/L (98-107) Carbon Dioxide Level 25 mmol/L (21-32) Anion Gap 9 (6-14) Blood Urea Nitrogen 7 mg/dL (7-20) Creatinine 0.5 mg/dL (0.6-1.0) L Estimated GFR (Cockcroft-Gault) 190.3 BUN/Creatinine Ratio 14 (6-20) Glucose Level 88 mg/dL (70-99) Calcium Level 9.5 mg/dL (8.5-10.1) Total Bilirubin 1.9 mg/dL (0.2-1.0) H Aspartate Amino Transferase (AST) 33 U/L (15-37) Alanine Aminotransferase (ALT) 23 U/L (14-59) Alkaline Phosphatase 53 U/L (46-116) Total Protein 8.5 g/dL (6.4-8.2) H Albumin 4.0 g/dL (3.4-5.0) Albumin/Globulin Ratio 0.9 (1.0-1.7) L Laboratory Tests 11/21/16 00:50 Laboratory Tests 11/21/16 00:50 EKG EKG [] Radiology/Procedures Radiology/Procedures [] Course & Med Decision Making Course & Med Decision Making Pertinent Labs and Imaging studies reviewed. (See chart for details) [] Dragon Disclaimer Dragon Disclaimer This electronic medical record was generated, in whole or in part, using a voice recognition dictation system. Departure Departure Impression: Primary Impression: Additional Impressions: Anemia Abdominal pain affecting Disposition: HOME, SELF-CARE Condition: IMPROVED Referrals: NO PCP (PCP) Patient Instructions: ABCs of , Anemia, Nonspecific-Brief, Sickle Cell Anemia Scripts Pnv With Ca,No.72/Iron,Carb/Fa ( PLUS IRON TABLET) 1 Each Tablet 1 TAB PO DAILY, #30 TAB 11 Refills Prov: MEERA HERRREA MD 11/21/16 Problem Qualifiers MEERA HERRERA MD Nov 21, 2016 02:11
== END 2016-11-21 02:20 | disposition home or self-care (01) ==
LOC: ER 00:15
DX: O26.892 Other specified pregnancy related conditions, second trimester (principal); O99.012 Anemia complicating pregnancy, second trimester; Z3A.22 22 weeks gestation of pregnancy
CPT/HCPCS: 36415; 76801; 80053; 81001; 81025; 84702; 85025; 96360; 99285; J7030; 87086

== ENCOUNTER 2016-12-11 17:58 | Emergency (ER) | payer SELFPAY ==
[~2016-12-11] VITALS: Ht 165.1 cm; Wt 79.4 kg
[~2016-12-11 17:58] MED LIST changes: +PNV1TABL34 PO
[2016-12-11 18:20] VITALS: BP 108/59
--- NOTE | 2016-12-11 18:24 | PHYS DOC ---
Past Medical History Past Medical History: Sickle Cell Disease, STD Additional Past Medical Histor: sickle cell Past Surgical History: No Surgical History Alcohol Use: None Drug Use: None Adult General Chief Complaint Chief Complaint: ABDOMINAL PAIN HPI HPI Patient is a 21 year old female who presents with complaint of lower abdominal pain. She is a , sickle cell disease patient with LMP 09/04/16. She was seen here on November 21 evaluated for lower abdominal pain. Ultrasound showed 11 week 1 day intrauterine . Her urinalysis was sent for culture; which did grow out Staph saprophyticus. C&S show sensitive to macrobid (resistant to penicillin and oxacillin). She was not put on antibiotics at that visit. She's not had any care and has not been seen in follow-up since the visit here in the emergency department. She denies any vaginal bleeding. No leak of fluid. He said no recent travel. No nausea vomiting or diarrhea. No fever. Review of Systems Review of Systems Constitutional: Denies fever or chills Eyes: Denies change in visual acuity, redness, or eye pain HENT: Denies nasal congestion or sore throat Respiratory: Denies cough or shortness of breath Cardiovascular: No chest pain GI: POS lower abdominal pain, NO nausea, vomiting, bloody stools or diarrhea : Denies dysuria or hematuria; denies vaginal bleeding. POS . Musculoskeletal: Denies back pain or joint pain Integument: Denies rash or skin lesions Neurologic: Denies headache, focal weakness or sensory changes Current Medications Current Medications Current Medications Medications (Trade) Dose Ordered Sig/Nicole Start Time Stop Time Status Last Admin Dose Admin Nitrofurantoin Macrocrystals (Macrobid) 100 mg 1X ONCE 12/11/16 20:15 12/11/16 20:15 DC 12/11/16 19:43 100 MG Allergies Allergies Allergies Coded Allergies Type Severity Reaction Last Updated Verified No Known Drug Allergies 05/26/15 No Physical Exam Physical Exam Constitutional: Well developed, well nourished, no acute distress, non-toxic appearance. HENT: Normocephalic, atraumatic, bilateral external ears normal, oropharynx moist, no oral exudates, nose normal. Eyes: PERRLA, EOMI, conjunctiva normal, no discharge. Neck: Normal range of motion, no tenderness, supple, no stridor. Cardiovascular:Heart rate regular rhythm, no murmur Lungs & Thorax: Bilateral breath sounds clear to auscultation Abdomen: Bowel sounds normal, soft, minimal tenderness to lower abdomen, no masses, no pulsatile masses. No rebound or guarding. Skin: Warm, dry, no erythema, no rash. Back: No tenderness, no CVA tenderness. Extremities: No tenderness, no cyanosis, no clubbing, ROM intact, no edema. Neurologic: Alert and oriented X 3, normal motor function, normal sensory function, no focal deficits noted. Psychologic: Affect normal, judgement normal, mood normal. Current Patient Data Vital Signs Vital Signs Date Time Temp Pulse Resp B/P (MAP) Pulse Ox O2 Delivery O2 Flow Rate FiO2 12/11/16 18:20 98.4 84 18 108/59 (75) 100 Room Air 98.4 Lab Values Laboratory Tests Test 12/11/16 18:08 12/11/16 18:14 Urine Collection Type Unknown Urine Color Yellow Urine Clarity Cloudy Urine pH 7.0 Urine Specific [place] 1.010 Urine Protein Negative mg/dL (NEG-TRACE) Urine Glucose (UA) Negative mg/dL (NEG) Urine Ketones (Stick) Negative mg/dL (NEG) Urine Blood Negative (NEG) Urine Nitrite Negative (NEG) Urine Bilirubin Negative (NEG) Urine Urobilinogen Dipstick 1.0 mg/dL (0.2 mg/dL) Urine Leukocyte Esterase Large (NEG) Urine RBC Occ /HPF (0-2) Urine WBC >40 /HPF (0-4) Urine Squamous Epithelial Cells Many /LPF Urine Bacteria Many /HPF (0-FEW) POC Urine HCG, Qualitative Hcg positive (Negative) Radiology/Procedures Radiology/Procedures US done: prelim report with 14 week; 4 day; HR 158. ovarian flow right seen; left ovarian not visualized. [facility] [address] [place], [place] [id number] IMAGING REPORT Signed PATIENT: JOE WASHINGTON ACCOUNT: [id number] : 1995 LOCATION: ER AGE: 21 SEX: F EXAM STATUS: DEP ER ORD. PHYSICIAN: GALA ENNIS MD REASON: sickle cell diz; preg; us 11/21 here; pain for 3 days lower abd; no vagbld PROCEDURE: OB < 14 WKS OB less than 14 weeks HISTORY: Sickle cell disease presents with and pelvic pain Sonographic examination appearance is performed and multiple static images were obtained There is a single live intrauterine. The heartbeat is confirmed at 158 beats). Visualization of structures is limited this early gestational age. There is a breech position. Maternal cervix appears normal measures 3.5 cm in length. There is a posterior placenta. The right ovary appears normal normal blood flow. Left ovary is not visualized. The LMP of 09/04/2016 corresponds to 14 weeks 0 day gestational age and estimated date confinement 06/11/2017. Estimated size by ultrasound is concordant at 14 weeks 4 days estimated date of confinement 06/07/2017. The measurements are as follows: BPD 2.7 cm 14 weeks 6 days Head circumference 10.0 cm 14 weeks 4 days Abdominal circumference 8.3 cm 14 weeks 5 days Femur length 1.4 cm 14 weeks 1 day IMPRESSION: 1. Single live intrauterine at 14 weeks 0 days gestational age by LMP has appropriate size by ultrasound. 2. No abnormality detected. A short-term follow-up ultrasound could be performed if clinically indicated otherwise a structural survey would be performed at 18-20 weeks gestational age. Electronically signed by: Bentley Whiting III, MD (12/11/2016 7:46 PM) [facility] Course & Med Decision Making Course & Med Decision Making Reviewed prior records. repeat urinalysis sent; if still positive will need treatment. Will check US due to high risk. SHE HAS NOT SET UP ANY CARE. STRESSED TO HER THAT SHE IS VERY HIGH RISK WITH SICKLE CELL AND MUST CALL MONDAY AM AND SET UP CARE. At 1925 PM: US report confirms continued viability of . Reviewed findings and will treat as UA has increased WBC. Spoke with pharmacy; no contraindication with using macrobid in sickle cell. AGAIN REITERATED THAT PATIENT MUST BE SEEN [facility]ARY BY OB. I have spoken with the patient and/or caregivers. I have explained the patient' s condition, diagnosis and treatment plan based on the information available to me at this time. I have answered the patient's and/or caregiver's questions and addressed any concerns. The patient and/or caregivers have as good an understanding of the patient's diagnosis, condition and treatment plan as can be expected at this point. The patient's condition is stable and appropriate for discharge from the emergency department. The patient will pursue further outpatient evaluation with the primary care physician or other designated or consulting physician as outlined in the discharge instructions. The patient and/or caregivers are agreeable to this plan of care and follow-up instructions have been explained in detail. The patient and/or caregivers have received these instructions in written format and have expressed an understanding of the discharge instructions. The patient and/or caregivers are aware that any significant change in condition or worsening of symptoms should prompt an immediate return to this or the closest emergency department or a call to 911. Dragon Disclaimer Dragon Disclaimer This electronic medical record was generated, in whole or in part, using a voice recognition dictation system. Departure Departure Impression: Primary Impression: Additional Impressions: Urinary tract infection Abdominal pain Sickle cell disease Disposition: HOME, SELF-CARE Condition: STABLE Referrals: NO PCP (PCP) Patient Instructions: Abdominal Pain During , - Urinary Tract Infection Additional Instructions: Ultrasound was done here today: 14 weeks and 4 days with good heart beat. Your urine showed continued signs of infection. The culture from Oct showed it was sensitive to Macrobid. You have been started on that tonight. YOU MUST CALL IN THE AM TO SET UP AN OB APPOINTMENT FOR CARE YOU ARE VERY HIGH RISK WITH AND SICKLE CELL DISEASE. Scripts Nitrofurantoin Monohyd/M-Cryst (MACROBID 100 MG CAPSULE) 100 Mg Capsule 1 CAP PO BID, #20 CAP Prov: GALA ENNIS MD 12/11/16 Problem Qualifiers Primary Impression: Weeks of gestation: 14 weeks Qualified Codes: Z3A.14 - 14 weeks gestation of Additional Impressions: Urinary tract infection Urinary tract infection type: acute cystitis Hematuria presence: without hematuria Qualified Codes: N30.00 - Acute cystitis without hematuria Abdominal pain Abdominal location: lower abdomen, unspecified Qualified Codes: R10.30 - Lower abdominal pain, unspecified Sickle cell disease Sickle-cell associated disorders: without crisis Qualified Codes: D57.1 - Sickle-cell disease without crisis GALA ENNIS MD Dec 11, 2016 18:24
[2016-12-11 18:28] LABS: BILIRUBIN,URINE NEGATIVE (NEG); GLUCOSE,URINE NEGATIVE (NEG); NITRITE,URINE NEGATIVE (NEG); PROTEIN,URINE NEGATIVE (NEG-TRACE)
[2016-12-11 18:34] LABS: BACTERIA,URINE MANY /HPF (0-FEW); RBC,URINE OCC /HPF (0-2); SQUAMOUS EPITHELIAL CELL,UR MANY /LPF; WBC,URINE >40 /HPF (0-4)
[2016-12-11] MEDS ORDERED: NITR100C62 PO (19:33)
--- NOTE | 2016-12-11 19:49 | RAD ---
OB less than 14 weeks HISTORY: Sickle cell disease presents with and pelvic pain Sonographic examination appearance is performed and multiple static images were obtained There is a single live intrauterine. The heartbeat is confirmed at 158 beats). Visualization of structures is limited this early gestational age. There is a breech position. Maternal cervix appears normal measures 3.5 cm in length. There is a posterior placenta. The right ovary appears normal normal blood flow. Left ovary is not visualized. The LMP of 09/04/2016 corresponds to 14 weeks 0 day gestational age and estimated date confinement 06/11/2017. Estimated size by ultrasound is concordant at 14 weeks 4 days estimated date of confinement 06/07/2017. The measurements are as follows: BPD 2.7 cm 14 weeks 6 days Head circumference 10.0 cm 14 weeks 4 days Abdominal circumference 8.3 cm 14 weeks 5 days Femur length 1.4 cm 14 weeks 1 day IMPRESSION: 1. Single live intrauterine at 14 weeks 0 days gestational age by LMP has appropriate size by ultrasound. 2. No abnormality detected. A short-term follow-up ultrasound could be performed if clinically indicated otherwise a structural survey would be performed at 18-20 weeks gestational age. Electronically signed by: Bentley Whiting III, MD (12/11/2016 7:46 PM) [facility]
[2016-12-11] MEDS ORDERED: NITROFURANTOIN MONOHYD/M-CRYST 100 MG CAPSULE. PO ONE (20:15)
== END 2016-12-11 19:46 | disposition home or self-care (01) ==
LOC: ER 17:58
DX: O23.11 Infections of bladder in pregnancy, first trimester (principal); N30.00 Acute cystitis without hematuria; O99.011 Anemia complicating pregnancy, first trimester; D57.1 Sickle-cell disease without crisis; Z3A.14 14 weeks gestation of pregnancy
CPT/HCPCS: 76801; 81001; 81025; 87086; 87186; 99285-25

== ENCOUNTER 2016-12-19 23:24 | Emergency (ER) | payer SELFPAY ==
[~2016-12-19] VITALS: Ht 165.1 cm; Wt 81.6 kg
[~2016-12-19 23:24] MED LIST changes: +NITR100C62 PO
[2016-12-19 23:32] VITALS: BP 119/74
--- NOTE | 2016-12-19 23:56 | PHYS DOC ---
Past Medical History Past Medical History: Sickle Cell Disease, STD Additional Past Medical Histor: MULTIPLE BLOOD TRANSFUSIONS Past Surgical History: No Surgical History Alcohol Use: None Drug Use: None Adult General Chief Complaint Chief Complaint: SEXUALLY TRANSMITTED DISEASE [facility] HPI Patient is a 21 year old female who presents for STD check. Patient is 15 weeks . She is 1 para 0. She states a female friend of hers who had sex with patient's boyfriend was diagnosed with herpes and called patient to let her know. Patient states she's had vaginal discharge and is currently on treatment for urinary tract infection with MicroBid. Patient denies any vaginal lesions. She has history of sickle cell. She was seen in the ED at around December 11, 2016 and was instructed to follow-up with an [employer]. She states she has not followed up. Patient states she has a razor bump on her pubic area but does not have any herpes lesions. Patient denies any abdominal pain, denies any vaginal bleeding, denies any back pain. Review of Systems Review of Systems Constitutional: Denies fever or chills [] Eyes: Denies change in visual acuity, redness, or eye pain [] HENT: Denies nasal congestion or sore throat [] Respiratory: Denies cough or shortness of breath [] Cardiovascular: No additional information not addressed in HPI [] GI: Denies abdominal pain, nausea, vomiting, bloody stools or diarrhea [] : Vaginal discharge, concern for STDs. Denies dysuria or hematuria [] Musculoskeletal: Denies back pain or joint pain [] Integument: Denies rash or skin lesions [] Neurologic: Denies headache, focal weakness or sensory changes [] Endocrine: Denies polyuria or polydipsia [] Current Medications Current Medications Current Medications Medications (Trade) Dose Ordered Sig/Nicole Start Time Stop Time Status Last Admin Dose Admin Azithromycin (Zithromax) 1,000 mg 1X ONCE 12/20/16 00:00 12/20/16 00:01 DC Ceftriaxone Sodium (Rocephin Im) 250 mg 1X ONCE 12/20/16 00:00 12/20/16 00:01 DC Metronidazole (Flagyl) 2,000 mg 1X ONCE 12/20/16 00:00 12/20/16 00:01 DC Allergies Allergies Allergies Coded Allergies Type Severity Reaction Last Updated Verified No Known Drug Allergies 3/29/16 No Physical Exam Physical Exam Constitutional: Well developed, well nourished, no acute distress, non-toxic appearance. [] HENT: Normocephalic, atraumatic, bilateral external ears normal, oropharynx moist, no oral exudates, nose normal. [] Eyes: PERRLA, EOMI, conjunctiva normal, no discharge. [] Neck: Normal range of motion, no tenderness, supple, no stridor. [] Cardiovascular:Heart rate regular rhythm, no murmur [] Lungs & Thorax: Bilateral breath sounds clear to auscultation [] Abdomen: Gravid abdomen. Bowel sounds normal, soft, no tenderness, no masses, no pulsatile masses. [] Pelvic exam External pelvic with no obvious lesions. Cervix is closed, no CMT, no adnexal tenderness, mild amount of white vaginal discharge noted in the vaginal vault. Skin: Warm, dry, no erythema, no rash. [] Back: No tenderness, no CVA tenderness. [] Extremities: No tenderness, no cyanosis, no clubbing, ROM intact, no edema. [] Neurologic: Alert and oriented X 3, normal motor function, normal sensory function, no focal deficits noted. [] Psychologic: Affect normal, judgement normal, mood normal. [] Current Patient Data Vital Signs Vital Signs Date Time Temp Pulse Resp B/P (MAP) Pulse Ox O2 Delivery O2 Flow Rate FiO2 12/19/16 23:32 98.1 91 18 99 Room Air 98.1 Lab Values Laboratory Tests Test 12/19/16 23:59 POC Urine HCG, Qualitative Hcg positive (Negative) Microbiology 12/19/16 Wet Prep - Final, Complete EKG EKG [] Radiology/Procedures Radiology/Procedures [] Course & Med Decision Making Course & Med Decision Making Pertinent Labs and Imaging studies reviewed. (See chart for details) Patient is in the ED with concern for STDs specifically herpes. Patient denies any herpes lesions, she states her girl friend who had sex with her boyfriend called her and told her she was diagnosed with herpes. Patient is currently . She is a 1 para 0. She has history of sickle cell. She was seen in the ED in December 11 and was started on MicroBid for UTI, she was instructed to follow-up with her [employer] which she did not. She was given Flagyl Rocephin and azithromycin in the ED. Discharged with acyclovir. Wet prep was positive for bacterial vaginosis, patient was discharged and Flagyl. Instructed to continue taking MicroBid for UTI. Encouraged to follow up with an [employer] especially with her history of sickle cell and currently . Encouraged to contact her partner started them know she was treated for STDs and ask them to seek treatment too. Dragon Disclaimer Dragon Disclaimer This electronic medical record was generated, in whole or in part, using a voice recognition dictation system. Departure Departure Impression: Primary Impression: Additional Impressions: Bacterial vaginosis Concern about STD in female without diagnosis Disposition: HOME, SELF-CARE Condition: STABLE Referrals: NO PCP (PCP) DEJA NAVARRETE Jr, MD Follow-up in one to 3 days Patient Instructions: Bacterial Vaginosis, [id number], Sexually Transmitted Diseases (STD) In Additional Instructions: You were seen with concern for sexually transmitted diseases. You need to follow -up with the health department and have them do blood work to see if you have herpes. You were treated in the emergency room for common STDs including trichomonas, chlamydia and gonorrhea. We sent you home with a couple medications. Take them as prescribed. Continue taking the antibiotics you received last time in the emergency room. Kindly follow-up with an [employer] for your . Scripts Acyclovir (ACYCLOVIR) 800 Mg Tablet 1 TAB PO 5XDAY, #50 TAB Prov: DARLYN CARABALLO APRN 12/20/16 Metronidazole (FLAGYL) 500 Mg Tablet 1 TAB PO BID, #10 TAB Prov: DARLYN CARABALLO APRN 12/20/16 Problem Qualifiers Primary Impression: Weeks of gestation: unspecified Qualified Codes: Z34.90 - Encounter for supervision of normal , unspecified, unspecified trimester DARLYN CARABALLO APRN Dec 19, 2016 23:56
[2016-12-20] MEDS ORDERED: metroNIDAZOLE 500 MG TABLET PO ONE
[2016-12-20] MEDS ORDERED: cefTRIAXone IM 250 MG VIAL IM ONE
[2016-12-20] MEDS ORDERED: AZITHROMYCIN 250 MG TABLET. PO ONE
[2016-12-20 00:05] LABS: BILIRUBIN,URINE NEGATIVE (NEG); GLUCOSE,URINE NEGATIVE (NEG); NITRITE,URINE NEGATIVE (NEG); PH,URINE 6.5; PROTEIN,URINE NEGATIVE (NEG-TRACE)
[2016-12-20 00:17] LABS: BACTERIA,URINE 0 /HPF (0-FEW); SQUAMOUS EPITHELIAL CELL,UR MANY /LPF
[2016-12-20] MEDS ORDERED: ACYC800T PO (00:23)
[2016-12-20] MEDS ORDERED: METR500T PO (00:23)
--- NOTE | 2016-12-22 16:07 | VNOTE ---
CALL BACK NOTE CALL BACK Microbiology 12/19/16 Wet Prep - Final, Complete 12/19/16 Urine Culture - Preliminary, Resulted 12/19/16 Urine Culture Result 1 (AUBRIE) - Preliminary, Resulted Patient was notified at [phone] she was provided the information her chlamydia test was positive. She had been treated here in the emergency department. She was recommended to notify her sexual partners in regards to the positive result. She was instructed to refrain from sexual intercourse with the mentally been treated. Patient agrees with information provided. RACHID TAPIA APRN Dec 22, 2016 16:07
== END 2016-12-20 00:47 | disposition home or self-care (01) ==
LOC: ER 23:24
DX: O23.592 Infection of other part of genital tract in pregnancy, second trimester (principal); N76.0 Acute vaginitis; Z20.2 Contact with and (suspected) exposure to infections with a predominantly sexual mode of transmission; Z3A.15 15 weeks gestation of pregnancy
CPT/HCPCS: 81001; 81025; 87086; 87491; 87591; 96372; 99284; J0696; Q0111; Q0144

== ENCOUNTER 2017-09-29 14:23 | Emergency (ER) | payer OTHER ==
[2017-09-29 15:08] LABS: URINE HCG POC HCG NEGATIVE (Negative)
[2017-09-29 15:29] LABS: BILIRUBIN,URINE NEGATIVE (NEG); CLARITY,URINE CLEAR; COLOR,URINE YELLOW; GLUCOSE,URINE NEGATIVE (NEG); NITRITE,URINE NEGATIVE (NEG); PROTEIN,URINE NEGATIVE (NEG-TRACE)
[2017-09-29 15:34] LABS: BACTERIA,URINE 0 /HPF (0-FEW); RBC,URINE 0 /HPF (0-2); SQUAMOUS EPITHELIAL CELL,UR FEW /LPF
[2017-09-29 16:10] LABS: BASO # 0.1 x10^3/uL (0.0-0.2); BASO % 1 % (0-3); EOS # 1.4 x10^3/uL (0.0-0.7); EOS % 13 % (0-3); HEMATOCRIT 23.4 % (36.0-47.0); HEMOGLOBIN 8.3 g/dL (12.0-15.5); LYMPH # 2.9 x10^3/uL (1.0-4.8); LYMPH % 27 % (24-48); MEAN CORPUSCULAR HEMOGLOBIN 31 pg (25-35); MEAN CORPUSCULAR HGB CONC 35 g/dL (31-37); MEAN CORPUSCULAR VOLUME 88 fL (79-100); MONO # 0.7 x10^3/uL (0.0-1.1); MONO % 6 % (0-9); NEUT # 5.7 x10^3uL (1.8-7.7); NEUT % 53 % (31-73); PLATELET COUNT 385 x10^3/uL (140-400); RED BLOOD COUNT 2.67 x10^6/uL (3.50-5.40); RED CELL DISTRIBUTION WIDTH 19.3 % (11.5-14.5); WHITE BLOOD COUNT 10.8 x10^3/uL (4.0-11.0)
[2017-09-29 16:15] LABS: ANION GAP 6 (6-14); BLOOD UREA NITROGEN 8 mg/dL (7-20); BUN/CREATININE RATIO 13 (6-20); CALCIUM 9.1 mg/dL (8.5-10.1); CARBON DIOXIDE 29 mmol/L (21-32); CHLORIDE 106 mmol/L (98-107); CREATININE 0.6 mg/dL (0.6-1.0); GFR 154.2; GLUCOSE 86 mg/dL (70-99); POTASSIUM 3.8 mmol/L (3.5-5.1); SODIUM 141 mmol/L (136-145)
[2017-09-29 16:18] LABS: ADD MAN DIFF? YES
[2017-09-29 16:19] LABS: RETIC COUNT 6.5 % (0.5-2.5)
[2017-09-29 16:21] LABS: ALBUMIN/GLOBULIN RATIO 1.1 (1.0-1.7); ALK PHOS 64 U/L (46-116); ALT (SGPT) 12 U/L (14-59); AST (SGOT) 24 U/L (15-37); LACTATE DEHYDROGENASE 685 U/L (81-234); TOTAL PROTEIN 7.8 g/dL (6.4-8.2)
[2017-09-29] MEDS: IV NORMAL SALINE 1000ML BAG 1,000 ML IV (16:49)
[2017-09-29] MEDS: MORPHINE SULFATE 2 MG/ML DISP.SYRIN. IV (17:00)
[2017-09-29 17:04] LABS: % BASOS 1 % (0-3); % EOS 13 % (0-5); % LYMPHS 23 % (24-48); % MONOS 7 % (0-10); % MYELOS 1 % (0-0); % SEGS 55 % (35-66); NUCLEATED RBC 1; PLT ESTIMATE ADEQUATE (ADEQUATE)
[2017-09-29 17:05] LABS: POLYCHROMASIA PRESENT
[2017-09-29 17:06] LABS: ANISOCYTOSIS SLIGHT; POIKILOCYTOSIS SLIGHT; SICKLE CELLS PRESENT; TARGET CELLS PRESENT
[2017-09-29 17:07] LABS: HOWELL-JOLLY BODIES PRESENT
[2017-09-29 17:08] LABS: SPHEROCYTES PRESENT
== END 2017-09-29 18:02 | disposition home or self-care (01) ==
LOC: ER 14:23
DX: D57.00 Hb-SS disease with crisis, unspecified (principal)
CPT/HCPCS: 36415; 71046; 80053; 81001; 81025; 83615; 85007; 85025; 85045; 87086; 96374; 99285-25; J2270; J7030

== ENCOUNTER 2017-12-22 12:12 | Emergency (ER) | payer OTHER ==
[~2017-12-22] VITALS: Ht 167.6 cm; Wt 72.6 kg
[~2017-12-22 12:12] MED LIST changes: +ACYC800T PO; +METR500T PO
[2017-12-22] MEDS ORDERED: KETOROLAC 15 MG/ML VIAL. IV ONE (13:00)
[2017-12-22 13:19] LABS: BILIRUBIN,URINE NEGATIVE (NEG); CLARITY,URINE CLOUDY; COLOR,URINE AMBER; NITRITE,URINE NEGATIVE (NEG); PROTEIN,URINE 100 mg/dL (NEG-TRACE)
[2017-12-22 13:43] LABS: BACTERIA,URINE MANY /HPF (0-FEW); WBC,URINE >40 /HPF (0-4)
--- NOTE | 2017-12-22 14:00 | PHYS DOC ---
Past Medical History Past Medical History: Sickle Cell Disease, STD, Other Additional Past Medical Histor: MULTIPLE BLOOD TRANSFUSIONS,CHRONIC PAIN Past Surgical History: No Surgical History Alcohol Use: None Drug Use: None Adult General Chief Complaint Chief Complaint: URINARY FREQUENCY HPI HPI Patient is a 22 AA year old female who presents to the ER with complaints of increased urinary frequency and suprapubic pain after urinating since yesterday. She denies any hematuria, foul odor, fever, irregular vaginal discharge, or back pain. Review of Systems Review of Systems Constitutional: Denies fever or chills [] GI: Denies abdominal pain, nausea, vomiting, or diarrhea [] : See HPI Musculoskeletal: Denies back pain Integument: Denies rash or skin lesions [] Neurologic: Denies headache, focal weakness or sensory changes [] All other systems were reviewed and found to be within normal limits, except as documented in this note. Current Medications Current Medications Current Medications Medications (Trade) Dose Ordered Sig/Nicole Start Time Stop Time Status Last Admin Dose Admin Ketorolac Tromethamine (Toradol 15mg Vial) 15 mg 1X ONCE 12/22/17 13:00 12/22/17 13:01 UNV Allergies Allergies Allergies Coded Allergies Type Severity Reaction Last Updated Verified iodine Allergy Severe anaphylaxis,rash 12/22/17 Yes Physical Exam Physical Exam Constitutional: Well developed, well nourished, no acute distress, non-toxic appearance. [] HENT: Normocephalic, atraumatic, bilateral external ears normal, nose normal. [ ] Eyes: PERRLA, conjunctiva normal, no discharge. [] Abdomen: soft, no tenderness, no masses, no pulsatile masses. [] Skin: Warm, dry, no erythema, no rash. [] Back: no CVA tenderness. [] Extremities: no cyanosis, no clubbing, ROM intact, no edema. [] Neurologic: Alert and oriented X 3, normal motor function, normal sensory function, no focal deficits noted. [] Psychologic: Affect normal, judgement normal, mood normal. [] Current Patient Data Vital Signs Vital Signs Date Time Temp Pulse Resp B/P (MAP) Pulse Ox O2 Delivery O2 Flow Rate FiO2 12/22/17 12:24 100.0 101 22 112/57 (75) 96 Room Air 100.0 Lab Values Laboratory Tests Test 12/22/17 12:10 12/22/17 12:38 Urine Collection Type Unknown Urine Color Мария Urine Clarity Cloudy Urine pH 6.0 Urine Specific [place] 1.010 Urine Protein 100 mg/dL (NEG-TRACE) Urine Glucose (UA) Negative mg/dL (NEG) Urine Ketones (Stick) Negative mg/dL (NEG) Urine Blood Moderate (NEG) Urine Nitrite Negative (NEG) Urine Bilirubin Negative (NEG) Urine Urobilinogen Dipstick 2.0 mg/dL (0.2 mg/dL) Urine Leukocyte Esterase Large (NEG) Urine RBC 11-20 /HPF (0-2) Urine WBC >40 /HPF (0-4) Urine Bacteria Many /HPF (0-FEW) POC Urine HCG, Qualitative Hcg negative (Negative) EKG EKG [] Radiology/Procedures Radiology/Procedures [] Course & Med Decision Making Course & Med Decision Making Pertinent Labs and Imaging studies reviewed. (See chart for details) DX: UTI prescription for Bactrim written. Increase clear fluids, avoid bladder irritants including caffeine, carbonation, and spicy foods. Follow up with your primary care doctor next week. Return to the ER if symptoms worsen. Patient verbalized an understanding of home care, medications, follow-up, and return to ED instructions and was in agreement with the plan of care. [] Dragon Disclaimer Dragon Disclaimer This electronic medical record was generated, in whole or in part, using a voice recognition dictation system. Departure Departure Impression: Primary Impression: Urinary tract infection Disposition: 01 HOME, SELF-CARE Condition: STABLE Referrals: VANDANA YOUNG DO (PCP) Patient Instructions: Urinary Tract Infection, [id number] Additional Instructions: Increase clear fluids, avoid bladder irritants including caffeine, carbonation , and spicy foods. Follow up with your primary care doctor next week. Return to the ER if symptoms worsen. Scripts Sulfamethoxazole/Trimethoprim (BACTRIM DS TABLET) 1 Each Tablet 1 TAB PO BID, #14 TAB 0 Refills Prov: BRANDI MARINO APRN 12/22/17 Problem Qualifiers Primary Impression: Urinary tract infection Urinary tract infection type: site unspecified Hematuria presence: with hematuria Qualified Codes: N39.0 - Urinary tract infection, site not specified ; R31.9 - Hematuria, unspecified BRANDI MARINO APRN Dec 22, 2017 14:00
[2017-12-22] MEDS ORDERED: SULF1TAB24 PO (14:40)
[2017-12-22 14:50] VITALS: BP 103/58
== END 2017-12-22 14:50 | disposition home or self-care (01) ==
LOC: ER 12:12
DX: N39.0 Urinary tract infection, site not specified (principal); R31.9 Hematuria, unspecified; G89.29 Other chronic pain; Z86.2 Personal history of diseases of the blood and blood-forming organs and certain disorders involving the immune mechanism; Z91.041 Radiographic dye allergy status
CPT/HCPCS: 81001; 81025; 87086; 87186; 99284

== ENCOUNTER 2018-02-06 15:46 | Emergency (ER) | payer OTHER ==
[~2018-02-06] VITALS: Ht 167.6 cm; Wt 68.0 kg
[~2018-02-06 15:46] MED LIST changes: -HYDR-2766 PO; +HYDR-2769 PO; -OXYC-323 PO; +OXYC1TAB15 PO; +SULF1TAB24 PO
[2018-02-06] MEDS: ONDANSETRON ODT 4 MG TAB.RAPDIS. PO ONE (17:15)
[2018-02-06] MEDS: diphenhydrAMINE HCL 25 MG CAPSULE PO ONE (17:17)
[2018-02-06] MEDS: MORPHINE SULFATE 10 MG/ML VIAL. IM ONE (17:20)
[2018-02-06] MEDS: IBUPROFEN 400 MG TABLET. PO ONE (17:25)
[2018-02-06] MEDS: ACETAMINOPHEN 500 MG TABLET PO ONE (17:25)
[2018-02-06 17:43] LABS: INFLUENZA A PATIENT NEGATIVE (NEGATIVE); INFLUENZA B PATIENT NEGATIVE (NEGATIVE)
[2018-02-06 17:44] LABS: BILIRUBIN,URINE NEGATIVE (NEG); CLARITY,URINE CLEAR; COLOR,URINE YELLOW; NITRITE,URINE NEGATIVE (NEG); PROTEIN,URINE NEGATIVE (NEG-TRACE)
[2018-02-06 18:02] LABS: BACTERIA,URINE FEW /HPF (0-FEW); RBC,URINE 0 /HPF (0-2)
[2018-02-06 18:03] LABS: SQUAMOUS EPITHELIAL CELL,UR MANY /LPF
[2018-02-06] MEDS ORDERED: CEPH500T PO (18:59)
--- NOTE | 2018-02-06 19:00 | PHYS DOC ---
Past Medical History Past Medical History: Sickle Cell Disease, STD, Other Additional Past Medical Histor: MULTIPLE BLOOD TRANSFUSIONS,CHRONIC PAIN Past Surgical History: No Surgical History Alcohol Use: None Drug Use: None Adult General Chief Complaint Chief Complaint: PAIN CONTROL HPI HPI Patient is a 22 year old female with history of sickle cell who presents today complaining of mild generalized pain throughout her body that has been going on since this morning. Patient states she does not know if it is her sickle cell or not. She states her most concerning pain is "side pain". Denies any fever urgency frequency or dysuria. She is in the ED with the son who is being evaluated. She states she does not want to go through a big sickle cell workup unless she really needs it she states she does not believe she is in crisis. Review of Systems Review of Systems Constitutional: Reports generalized pain Denies fever or chills [] Eyes: Denies change in visual acuity, redness, or eye pain [] HENT: Denies nasal congestion or sore throat [] Respiratory: Denies cough or shortness of breath [] Cardiovascular: No additional information not addressed in HPI [] GI: Denies abdominal pain, nausea, vomiting, bloody stools or diarrhea [] : Reports bilateral flank pain Denies dysuria or hematuria [] Musculoskeletal: Denies back pain or joint pain [] Integument: Denies rash or skin lesions [] Neurologic: Denies headache, focal weakness or sensory changes [] All other systems were reviewed and found to be within normal limits, except as documented in this note. Current Medications Current Medications Current Medications Medications (Trade) Dose Ordered Sig/Nicole Start Time Stop Time Status Last Admin Dose Admin Acetaminophen (Tylenol) 1,000 mg 1X ONCE 02/06/18 17:30 02/06/18 17:31 DC 02/06/18 17:25 1,000 MG Diphenhydramine HCl (Benadryl) 25 mg 1X ONCE 02/06/18 17:00 02/06/18 17:01 DC 02/06/18 17:17 25 MG Ibuprofen (Motrin) 800 mg 1X ONCE 02/06/18 17:30 02/06/18 17:31 DC 02/06/18 17:25 800 MG Morphine Sulfate (Morphine Sulfate) 5 mg 1X ONCE 02/06/18 17:00 02/06/18 17:01 DC 02/06/18 17:20 5 MG Ondansetron HCl (Zofran Odt) 4 mg 1X ONCE 02/06/18 17:00 02/06/18 17:01 DC 02/06/18 17:15 4 MG Allergies Allergies Allergies Coded Allergies Type Severity Reaction Last Updated Verified iodine Allergy Severe anaphylaxis,rash 12/22/17 Yes Physical Exam Physical Exam Constitutional: Well developed, well nourished, no acute distress, non-toxic appearance. [] HENT: Normocephalic, atraumatic, bilateral external ears normal, oropharynx moist, no oral exudates, nose normal. [] Eyes: PERRLA, EOMI, conjunctiva normal, no discharge. [] Neck: Normal range of motion, no tenderness, supple, no stridor. [] Cardiovascular:Heart rate regular rhythm, no murmur [] Lungs & Thorax: Bilateral breath sounds clear to auscultation [] Abdomen: Bowel sounds normal, soft, no tenderness, no masses, no pulsatile masses. [] Skin: Warm, dry, no erythema, no rash. [] Back: No tenderness, no CVA tenderness. [] Extremities: No tenderness, no cyanosis, no clubbing, ROM intact, no edema. [] Neurologic: Alert and oriented X 3, normal motor function, normal sensory function, no focal deficits noted. [] Psychologic: Affect normal, judgement normal, mood normal. [] Current Patient Data Vital Signs Vital Signs Date Time Temp Pulse Resp B/P (MAP) Pulse Ox O2 Delivery O2 Flow Rate FiO2 02/06/18 18:14 89 18 100 02/06/18 16:13 100.4 113/67 (82) Room Air 100.4 Lab Values Laboratory Tests Test 02/06/18 17:13 02/06/18 17:30 02/06/18 17:31 Influenza Type A Antigen Negative (NEGATIVE) Influenza Type B Antigen Negative (NEGATIVE) Urine Collection Type Unknown Urine Color Yellow Urine Clarity Clear Urine pH 7.0 Urine Specific [place] 1.010 Urine Protein Negative mg/dL (NEG-TRACE) Urine Glucose (UA) Negative mg/dL (NEG) Urine Ketones (Stick) Negative mg/dL (NEG) Urine Blood Negative (NEG) Urine Nitrite Negative (NEG) Urine Bilirubin Negative (NEG) Urine Urobilinogen Dipstick 1.0 mg/dL (0.2 mg/dL) Urine Leukocyte Esterase Large (NEG) Urine RBC 0 /HPF (0-2) Urine WBC 5-10 /HPF (0-4) Urine Squamous Epithelial Cells Many /LPF Urine Bacteria Few /HPF (0-FEW) POC Urine HCG, Qualitative Hcg negative (Negative) EKG EKG [] Radiology/Procedures Radiology/Procedures [] Course & Med Decision Making Course & Med Decision Making Pertinent Labs and Imaging studies reviewed. (See chart for details) This is a 22-year-old sickle cell female patient presenting to the ED today with generalized pain worse on her bilateral flank region. Patient refusing to go through sickle cell workup. Temperature 100.4. Urine analysis is noted for UTI. Chest x-ray is negative. Will be discharged with cephalexin. Given pain medicine in the ED. Pain is well controlled. Tylenol Motrin for pain or fever. Negative influenza A or B. Follow-up with primary care doctor. [place]on Disclaimer Dragon Disclaimer This electronic medical record was generated, in whole or in part, using a voice recognition dictation system. Departure Departure Impression: Primary Impression: Urinary tract infection Additional Impression: Fever Disposition: 01 HOME, SELF-CARE Condition: STABLE Referrals: VANDANA YOUNG DO (PCP) Follow-up this week or next week Patient Instructions: Fever, Child, Urinary Tract Infection Additional Instructions: You were evaluated in the emergency room and noted to have urinary tract infection, we put on on antibiotics, ensure you complete them. Take Tylenol or Motrin as needed for fever. Follow up with in the next 1 week. Come back to the ED at any point symptoms worsen. Scripts Cephalexin (CEPHALEXIN) 500 Mg Tablet 1 TAB PO BID, #14 TAB Prov: DARLYN CARABALLO APRN 02/06/18 Problem Qualifiers Primary Impression: Urinary tract infection Urinary tract infection type: site unspecified Hematuria presence: without hematuria Qualified Codes: N39.0 - Urinary tract infection, site not specified Additional Impression: Fever Fever type: unspecified Qualified Codes: R50.9 - Fever, unspecified DARLYN CARABALLO APRN Feb 06, 2018 19:00
[2018-02-06 19:22] VITALS: BP 118/68
--- NOTE | 2018-02-06 20:20 | RAD ---
PROCEDURE: CHEST PA LATERAL CLINICAL INDICATION: ER PATIENT. DIZZINESS, LIGHTHEADED, FEVER. Hx SICKLE CELL. COMPARISON: 09/29/2017 FINDINGS: No pneumothorax identified. Cardiac and mediastinal contours unremarkable. No pulmonary consolidation or acute airspace disease. No acute osseous abnormalities identified. IMPRESSION: No pulmonary consolidation or acute airspace disease. Electronically signed by: Johnny Maria DO (02/06/2018 8:16 PM) [facility]
== END 2018-02-06 19:19 | disposition home or self-care (01) ==
LOC: ER 15:46
DX: N39.0 Urinary tract infection, site not specified (principal); M79.10 Myalgia, unspecified site; R50.9 Fever, unspecified; G89.29 Other chronic pain; Z91.041 Radiographic dye allergy status
CPT/HCPCS: 71046; 81001; 81025; 87086; 87804; 96372; 99284; J2270; Q0162; Q0163

== ENCOUNTER 2018-04-19 17:58 | Inpatient (IN) | payer MEDICARE, OTHER ==
[~2018-04-19] VITALS: Ht 167.6 cm; Wt 72.6 kg
[2018-04-19] MEDS ORDERED: IV NORMAL SALINE 1000ML BAG 1,000 ML IV ONE ×2 (18:45→20:30)
[2018-04-19] MEDS ORDERED: fentaNYL PF VIAL 100 MCG/2 ML VIAL IV ONE (18:45)
--- NOTE | 2018-04-19 18:45 | PHYS DOC ---
Past Medical History Past Medical History: Sickle Cell Disease, STD, Other Additional Past Medical Histor: MULTIPLE BLOOD TRANSFUSIONS,CHRONIC PAIN, Past Surgical History: No Surgical History Alcohol Use: None Drug Use: None Adult General Chief Complaint Chief Complaint: ABDOMINAL PAIN HPI HPI Patient is a 22 year old female with a PMH of sickle cell who presents with one week of bilateral low abdominal pain that radiates up around her back. There is no associated nausea, vomiting, diarrhea. She has not found anything that makes it better or worse. Additionally she has a history of recurring UTIs and complains of dysuria, frequency, and vaginal itching for the past two weeks. Denies discharge. In regards to her sickle cell she thinks her last pain crisis was 8-10 months ago. Patient however reports diffuse sharp body pains that she says are indicative of the start of a pain crisis. She is up to date on her immunizations and does not take hydroxyurea. She has history of gallstones and denies any abdominal surgery. She has one child and had a PE after giving in April of 2017 but denies recurrence of blood clot. Reportedly she stopped Xarelto several months ago. Currently she denies chest pain and shortness of breath. Review of Systems Review of Systems Constitutional: Denies fever or chills [] Eyes: Denies change in visual acuity, redness, or eye pain [] HENT: Denies nasal congestion or sore throat [] Respiratory: Denies cough or shortness of breath [] Cardiovascular: No chest pain, palpitations [] GI: Denies nausea, vomiting, diarrhea, Reports bilateral lower abdominal pain [] : Denies hematuria, Reports dysuria and frequency[] Musculoskeletal: Reports diffuse body pains and back pain [] Integument: Denies rash or skin lesions [] Neurologic: Denies headache, focal weakness or sensory changes [] Complete systems were reviewed and found to be within normal limits, except as documented in this note. Current Medications Current Medications Current Medications Medications (Trade) Dose Ordered Sig/Nicole Start Time Stop Time Status Last Admin Dose Admin Ceftriaxone Sodium (Rocephin) 1 gm 1X ONCE 04/19/18 19:30 04/19/18 19:31 DC 04/19/18 19:44 1 GM Fentanyl Citrate (Fentanyl 2ml Vial) 50 mcg 1X ONCE 04/19/18 18:45 04/19/18 18:46 DC 04/19/18 19:32 50 MCG Morphine Sulfate (Morphine Sulfate) 8 mg PRN Q4HRS PRN 04/19/18 20:30 Ondansetron HCl (Zofran) 4 mg PRN Q8HRS PRN 04/19/18 20:30 04/20/18 20:29 04/19/18 20:33 4 MG Sodium Chloride 1,000 ml @ 125 mls/hr 1X ONCE 04/19/18 20:30 04/20/18 04:29 04/19/18 20:30 125 MLS/HR Allergies Allergies Allergies Coded Allergies Type Severity Reaction Last Updated Verified iodine Allergy Severe anaphylaxis,rash 12/22/17 Yes Physical Exam Physical Exam Constitutional: Well developed, well nourished, no acute distress, non-toxic appearance. [] HENT: Normocephalic, atraumatic, bilateral external ears normal, oropharynx moist, no oral exudates, nose normal. [] Eyes: PERRLA, EOMI, conjunctiva normal, no discharge. [] Neck: Normal range of motion, no tenderness, supple, no stridor. [] Cardiovascular:Heart rate regular rhythm, no murmur [] Lungs & Thorax: Bilateral breath sounds clear to auscultation [] Abdomen: Bowel sounds normal, soft, no tenderness, no masses, no pulsatile masses. [] Skin: Warm, dry, no erythema, no rash. [] Back: No tenderness, no CVA tenderness. [] Extremities: No tenderness, no cyanosis, no clubbing, ROM intact, no edema. [] Neurologic: Alert and oriented X 3, normal motor function, normal sensory function, no focal deficits noted. [] Psychologic: Affect normal, judgement normal, mood normal. [] Current Patient Data Vital Signs Vital Signs Date Time Temp Pulse Resp B/P (MAP) Pulse Ox O2 Delivery O2 Flow Rate FiO2 04/19/18 20:32 26 100 Room Air 04/19/18 18:39 99.2 95 114/62 (79) 99.2 Lab Values Laboratory Tests Test 04/19/18 18:30 04/19/18 18:33 04/19/18 19:24 Urine Collection Type Unknown Urine Color Yellow Urine Clarity Cloudy Urine pH 6.0 Urine Specific [place] 1.010 Urine Protein 100 mg/dL (NEG-TRACE) Urine Glucose (UA) Negative mg/dL (NEG) Urine Ketones (Stick) Negative mg/dL (NEG) Urine Blood Moderate (NEG) Urine Nitrite Positive (NEG) Urine Bilirubin Negative (NEG) Urine Urobilinogen Dipstick 1.0 mg/dL (0.2 mg/dL) Urine Leukocyte Esterase Large (NEG) Urine RBC Occ /HPF (0-2) Urine WBC Tntc /HPF (0-4) Urine Squamous Epithelial Cells Few /LPF Urine Bacteria Many /HPF (0-FEW) POC Urine HCG, Qualitative Hcg negative (Negative) White Blood Count 13.3 x10^3/uL (4.0-11.0) H Red Blood Count 2.87 x10^6/uL (3.50-5.40) L Hemoglobin 8.5 g/dL (12.0-15.5) L Hematocrit 25.0 % (36.0-47.0) L Mean Corpuscular Volume 87 fL (79-100) Mean Corpuscular Hemoglobin 29 pg (25-35) Mean Corpuscular Hemoglobin Concent 34 g/dL (31-37) Red Cell Distribution Width 17.9 % (11.5-14.5) H Platelet Count 491 x10^3/uL (140-400) H Neutrophils (%) (Auto) 70 % (31-73) Lymphocytes (%) (Auto) 22 % (24-48) L Monocytes (%) (Auto) 6 % (0-9) Eosinophils (%) (Auto) 2 % (0-3) Basophils (%) (Auto) 1 % (0-3) Neutrophils # (Auto) 9.3 x10^3uL (1.8-7.7) H Lymphocytes # (Auto) 2.9 x10^3/uL (1.0-4.8) Monocytes # (Auto) 0.7 x10^3/uL (0.0-1.1) Eosinophils # (Auto) 0.3 x10^3/uL (0.0-0.7) Basophils # (Auto) 0.1 x10^3/uL (0.0-0.2) Reticulocyte Count (auto) 7.5 % (0.5-2.5) H Sodium Level 138 mmol/L (136-145) Potassium Level 3.8 mmol/L (3.5-5.1) Chloride Level 102 mmol/L (98-107) Carbon Dioxide Level 29 mmol/L (21-32) Anion Gap 7 (6-14) Blood Urea Nitrogen 6 mg/dL (7-20) L Creatinine 0.5 mg/dL (0.6-1.0) L Estimated GFR (Cockcroft-Gault) 188.5 BUN/Creatinine Ratio 12 (6-20) Glucose Level 89 mg/dL (70-99) Calcium Level 9.2 mg/dL (8.5-10.1) Total Bilirubin 2.7 mg/dL (0.2-1.0) H Aspartate Amino Transferase (AST) 32 U/L (15-37) Alanine Aminotransferase (ALT) 21 U/L (14-59) Alkaline Phosphatase 74 U/L (46-116) Total Protein 8.5 g/dL (6.4-8.2) H Albumin 4.0 g/dL (3.4-5.0) Albumin/Globulin Ratio 0.9 (1.0-1.7) L Lipase 52 U/L (73-393) L Laboratory Tests 04/19/18 19:24 Laboratory Tests 04/19/18 19:24 EKG EKG [] Radiology/Procedures Radiology/Procedures PROCEDURE: CT ABDOMEN PELVIS WO CONTRAST PQRS Compliance Statement: One or more of the following individualized dose reduction techniques were utilized for this examination: 1. Automated exposure control 2. Adjustment of the mA and/or kV according to patient size 3. Use of iterative reconstruction technique CT abdomen/pelvis without contrast 04/19/2018 6:55 PM INDICATION: Right flank and right lower quadrant pain. Iodine allergy. Sickle cell disease. COMPARISON: None available TECHNIQUE: Multiple axial CT images of the abdomen and pelvis were obtained without intravenous contrast. Coronal and sagittal reformats are provided. FINDINGS: Minimal tree-in-bud nodular airspace disease is identified in the left lower lobe which may represent a bronchiolitis of infectious/inflammatory etiology. Heart size is within normal limits. Evaluation of the solid abdominal viscera is limited by lack of intravenous contrast. No suspicious hepatic masses are identified. Spleen, bilateral adrenal glands, and pancreas are normal in appearance. Gallbladder is present without adjacent inflammatory changes. The abdominal aorta is normal in course and caliber. There are no pathologically enlarged lymph nodes in the abdomen and pelvis. There is no abdominal free fluid. There is no free intraperitoneal air. Moderate amount of stool is noted throughout the colon. Small and large bowel are normal in caliber. There is no evidence for bowel obstruction. There are no pericolonic inflammatory changes. A normal, nondilated appendix is visualized without adjacent inflammatory changes. 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 Mild fullness of the inferior moiety and associated ureter may be secondary to vesicoureteral reflux. There is no suspicious renal mass within the limitations of a noncontrast examination. There is no significant hydronephrosis. There are no calculi within the kidneys, ureters or urinary bladder. IUD is present. Uterus and adnexa are normal in appearance by CT. Urinary bladder is within normal limits given degree of distention. No suspicious osseous abnormality is identified. Impression: Minimal tree-in-bud nodular airspace disease is identified in the left lower lobe which may represent a bronchiolitis of infectious/inflammatory etiology. 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 Mild fullness of the inferior moiety and associated ureter may be secondary to vesicoureteral reflux. Appendix is normal in appearance. IUD is present. Electronically signed by: Tomeka Chavira MD (04/19/2018 7:17 PM) [employer] DICTATED and SIGNED BY: TOMEKA CHAVIRA MD DATE: 04/19/181912 Course & Med Decision Making Course & Med Decision Making Pertinent Labs and Imaging studies reviewed. (See chart for details) Patient is a 22 year old female with a PMH of sickle cell disease and recurring UTIs. She complains of one week of lower abdominal and bilateral flank pain. Additionally having diffuse body aches which feel similar to when she has pain crisis. There was infection noted on her UA. 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 Imaging findings were discussed with patient and the concern for pyelonephritis. She is also likely experiencing a sickle crisis precipitated by the infectin as her CBC demonstrated Hgb of 8.5 and a reticulocyte count of 7.5. Patient treated with fluids, morphine, and given one dose of Rocephin. Patient would like to be admitted for further management. Dragon Disclaimer Dragon Disclaimer This electronic medical record was generated, in whole or in part, using a voice recognition dictation system. Departure Departure Impression: Primary Impression: Pyelonephritis Additional Impression: Sickle cell crisis Disposition: 09 ADMITTED INPATIENT Admitting Physician: Irais Garza Condition: STABLE Referrals: VANDANA YOUNG DO (PCP) Problem Qualifiers SALVADOR PINA DO Apr 19, 2018 18:45
[2018-04-19 18:59] LABS: BILIRUBIN,URINE NEGATIVE (NEG); CLARITY,URINE CLOUDY; COLOR,URINE YELLOW; NITRITE,URINE POSITIVE (NEG); PROTEIN,URINE 100 mg/dL (NEG-TRACE)
[2018-04-19 19:09] LABS: BACTERIA,URINE MANY /HPF (0-FEW); RBC,URINE OCC /HPF (0-2); SQUAMOUS EPITHELIAL CELL,UR FEW /LPF; WBC,URINE TNTC /HPF (0-4)
--- NOTE | 2018-04-19 19:20 | RAD ---
PQRS Compliance Statement: One or more of the following individualized dose reduction techniques were utilized for this examination: 1. Automated exposure control 2. Adjustment of the mA and/or kV according to patient size 3. Use of iterative reconstruction technique CT abdomen/pelvis without contrast 04/19/2018 6:55 PM INDICATION: Right flank and right lower quadrant pain. Iodine allergy. Sickle cell disease. COMPARISON: None available TECHNIQUE: Multiple axial CT images of the abdomen and pelvis were obtained without intravenous contrast. Coronal and sagittal reformats are provided. FINDINGS: Minimal tree-in-bud nodular airspace disease is identified in the left lower lobe which may represent a bronchiolitis of infectious/inflammatory etiology. Heart size is within normal limits. Evaluation of the solid abdominal viscera is limited by lack of intravenous contrast. No suspicious hepatic masses are identified. Spleen, bilateral adrenal glands, and pancreas are normal in appearance. Gallbladder is present without adjacent inflammatory changes. The abdominal aorta is normal in course and caliber. There are no pathologically enlarged lymph nodes in the abdomen and pelvis. There is no abdominal free fluid. There is no free intraperitoneal air. Moderate amount of stool is noted throughout the colon. Small and large bowel are normal in caliber. There is no evidence for bowel obstruction. There are no pericolonic inflammatory changes. A normal, nondilated appendix is visualized without adjacent inflammatory changes. 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 Mild fullness of the inferior moiety and associated ureter may be secondary to vesicoureteral reflux. There is no suspicious renal mass within the limitations of a noncontrast examination. There is no significant hydronephrosis. There are no calculi within the kidneys, ureters or urinary bladder. IUD is present. Uterus and adnexa are normal in appearance by CT. Urinary bladder is within normal limits given degree of distention. No suspicious osseous abnormality is identified. Impression: Minimal tree-in-bud nodular airspace disease is identified in the left lower lobe which may represent a bronchiolitis of infectious/inflammatory etiology. 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 Mild fullness of the inferior moiety and associated ureter may be secondary to vesicoureteral reflux. Appendix is normal in appearance. IUD is present. Electronically signed by: Gricel Valdez MD (04/19/2018 7:17 PM) [facility]
[2018-04-19] MEDS ORDERED: cefTRIAXone IV Push 1 GM VIAL. IVP ONE (19:30)
[2018-04-19 19:33] LABS: BASO # 0.1 x10^3/uL (0.0-0.2); BASO % 1 % (0-3); EOS # 0.3 x10^3/uL (0.0-0.7); EOS % 2 % (0-3); HEMOGLOBIN 8.5 g/dL (12.0-15.5); LYMPH # 2.9 x10^3/uL (1.0-4.8); LYMPH % 22 % (24-48); MEAN CORPUSCULAR HEMOGLOBIN 29 pg (25-35); MEAN CORPUSCULAR HGB CONC 34 g/dL (31-37); MEAN CORPUSCULAR VOLUME 87 fL (79-100); MONO # 0.7 x10^3/uL (0.0-1.1); MONO % 6 % (0-9); NEUT # 9.3 x10^3uL (1.8-7.7); NEUT % 70 % (31-73); PLATELET COUNT 491 x10^3/uL (140-400); RED BLOOD COUNT 2.87 x10^6/uL (3.50-5.40); RED CELL DISTRIBUTION WIDTH 17.9 % (11.5-14.5); RETIC COUNT 7.5 % (0.5-2.5); WHITE BLOOD COUNT 13.3 x10^3/uL (4.0-11.0)
[2018-04-19 19:37] LABS: CALCIUM 9.2 mg/dL (8.5-10.1); CREATININE 0.5 mg/dL (0.6-1.0); GFR 188.5; POTASSIUM 3.8 mmol/L (3.5-5.1)
[2018-04-19 19:44] LABS: ALBUMIN/GLOBULIN RATIO 0.9 (1.0-1.7); TOTAL BILIRUBIN 2.7 mg/dL (0.2-1.0); TOTAL PROTEIN 8.5 g/dL (6.4-8.2)
[2018-04-19] MEDS ORDERED: MORPHINE SULFATE 10 MG/ML VIAL. IV ONE (20:00)
[2018-04-19] MEDS ORDERED: MORPHINE SULFATE 4 MG/ML VIAL. IV PRN (20:30)
[2018-04-19] MEDS: ONDANSETRON PF 4 MG/2 ML VIAL. IV PRN (20:33)
[2018-04-19 21:45] VITALS: BP 110/54
[2018-04-19] MEDS ORDERED: MORPHINE ER 15 MG TABLET.ER PO ONE (22:00)
[2018-04-19] MEDS: IV NORMAL SALINE 1000ML BAG 1,000 ML IV SCH (22:15)
[2018-04-19 23:00] VITALS: BP 98/63
[2018-04-20] MEDS: ZOLPIDEM 5 MG TABLET. PO PRN ×2 (00:43→20:39)
[2018-04-20 03:00] VITALS: BP 95/50
[2018-04-20] MEDS: HYDROcodone/APAP 10/325 1 TAB TABLET PO PRN ×2 (03:24→09:31)
[2018-04-20] MEDS: IV NORMAL SALINE 1000ML BAG 1,000 ML IV SCH ×3 (04:44→20:39)
[2018-04-20 07:00] VITALS: BP 95/51
--- NOTE | 2018-04-20 07:33 | PDOC1 ---
History and Physical Date of Admission Date of Admission DATE: 04/19/18 TIME: 20:30 Identification/Chief Complaint Chief Complaint Abdominal Pain Source Source: Chart review, Patient History of Present Illness History of Present Illness 22 year old female with a PMH of sickle cell disease (persistent hemoglobin) who presents with one week of bilateral low abdominal pain that radiates up around her back. There is no associated nausea, vomiting, diarrhea. She has not found anything that makes it better or worse. Additionally she has a history of recurring UTIs and complains of dysuria, frequency, and vaginal itching for the past two weeks. Denies discharge. In regards to her sickle cell she thinks her last pain crisis was 8-10 months ago. Patient however reports diffuse sharp body pains that she says are indicative of the start of a pain crisis. She is up to date on her immunizations and does not take hydroxyurea. She has history of gallstones and denies any abdominal surgery. She has one child and had a PE after giving in April of 2017 but denies recurrence of blood clot. Reportedly she stopped Xarelto several months ago. Currently she denies chest pain and shortness of breath. 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 Right flank pain Past Medical History Cardiovascular: Other (Cardiomegaly on CT scan) Pulmonary: Pulmonary embolus GI: No pertinent hx Heme/Onc: Sickle cell disease Hepatobiliary: No pertinent hx Rheumatologic: No pertinent hx ENT: No pertinent hx Renal/: UTI Endocrine: No pertinent hx Dermatology: No pertinent hx Past Surgical History Past Surgical History: Other (Flex sig) Family History Family History: Hypertension, Other (SCD) Social History Smoke: No ALCOHOL: none Drugs: None Current Medications Current Medications Current Medications Sodium Chloride 1,000 ml @ 1,000 mls/hr 1X ONCE IV Last administered on at 19:30; Start 04/19/18 at 18:45; Stop 04/19/18 at 19:44; Status DC Fentanyl Citrate (Fentanyl 2ml Vial) 50 mcg 1X ONCE IV Last administered on at 19:32; Start 04/19/18 at 18:45; Stop 04/19/18 at 18:46; Status DC Ceftriaxone Sodium (Rocephin) 1 gm 1X ONCE IVP Last administered on 04/19/18at 19:44; Start 04/19/18 at 19:30; Stop 04/19/18 at 19:31; Status DC Morphine Sulfate (Morphine Sulfate) 8 mg 1X ONCE IV Last administered on at 20:32; Start 04/19/18 at 20:00; Stop 04/19/18 at 20:01; Status DC Ondansetron HCl (Zofran) 4 mg PRN Q8HRS PRN IV NAUSEA/VOMITING Last administered on 04/19/18at 20:33; Start 04/19/18 at 20:30; Stop 04/20/18 at 20:29 Morphine Sulfate (Morphine Sulfate) 8 mg PRN Q4HRS PRN IV PAIN; Start 04/19/18 at 20:30; Stop 04/19/18 at 22:00; Status DC Sodium Chloride 1,000 ml @ 125 mls/hr 1X ONCE IV Last administered on at 20:30; Start 04/19/18 at 20:30; Stop 04/20/18 at 04:29; Status DC Folic Acid (Folic Acid) 1 mg DAILY PO ; Start 04/20/18 at 09:00 Nitrofurantoin Macrocrystals (Macrobid) 100 mg BID PO ; Start 04/20/18 at 09:00 Multivit/ Folic Acid/Iron (Multivitamin ) 1 tab DAILY PO ; Start 04/20/18 at 09:00 Acetaminophen/ Hydrocodone Bitart (Lortab 10/325) 1 tab PRN Q6HRS PRN PO PAIN Last administered on 04/20/18at 03:24; Start 04/19/18 at 22:00 Morphine Sulfate (Ms Contin) 15 mg 1X ONCE PO Last administered on 04/19/18at 22:15; Start 04/19/18 at 22:00; Stop 04/19/18 at 22:03; Status DC Morphine Sulfate (Morphine Sulfate) 10 mg PRN Q4HRS PRN IV PAIN; Start at 22:00 Sodium Chloride 1,000 ml @ 150 mls/hr Q6H40M IV Last administered on at 04:44; Start 04/19/18 at 22:15 Zolpidem Tartrate (Ambien) 5 mg PRN QHS PRN PO INSOMNIA Last administered on at 00:43; Start 04/20/18 at 00:45 Active Scripts Active Cephalexin 500 Mg Tablet 1 Tab PO BID Bactrim Ds Tablet (Sulfamethoxazole/Trimethoprim) 1 Each Tablet 1 Tab PO BID Acyclovir 800 Mg Tablet 1 Tab PO 5XDAY Flagyl (Metronidazole) 500 Mg Tablet 1 Tab PO BID Macrobid 100 Mg Capsule (Nitrofurantoin Monohyd/M-Cryst) 100 Mg Capsule 1 Cap PO BID Plus Iron Tablet (Pnv With Ca,No.72/Iron,Carb/Fa) 1 Each Tablet 1 Tab PO DAILY Cephalexin 500 Mg Tablet 1 Tab PO BID Folic Acid 1 Mg Tablet 1 Tab PO DAILY Reported Hydrocodone-Apap 10-325 (Hydrocodone Bit/Acetaminophen) 1 Each Tablet 1 Tab PO PRN Q4-6HRS PRN No Known Medications Prior To Admisstion (Info) Each 1 Each MC No Known Medications Prior To Admisstion (Info) Each 1 Each MC Allergies Allergies: Coded Allergies: iodine (Verified Allergy, Severe, anaphylaxis,rash, 12/22/17) ROS General: YES: Malaise; No: Chills, Night Sweats, Fatigue, Appetite, Other PSYCHOLOGICAL ROS: No: Anxiety, Behavioral Disorder, Concentration difficultie , Decreased libido, Depression, Disorientation, Hallucinations, Hostility, Irritablity, Memory difficulties, Mood Swings, Obsessive thoughts, Physical abuse, Sexual abuse, Sleep disturbances, Suicidal ideation, Other Eyes: No Blurry vision, No Decreased vision, No Double vision, No Dry eyes, No Excessive tearing, No Eye Pain, No Itchy Eyes, No Loss of vision, No Photophobia , No Scotomata, No Uses contacts, No Uses glasses, No Other HEENT: No: Heacaches, Visual Changes, Hearing change, Nasal congestion, Nasal discharge, Oral lesions, Sinus pain, Sore Throat, Epistaxis, Sneezing, Snoring, Tinnitus, Vertigo, Vocal changes, Other ALLERGY AND IMMUNOLOGY: No: Hives, Insect Bite Sensitivity, Itchy/Watery Eyes, Nasal Congestion, Post Nasal Drip, Seasonal Allergies, Other Hematological and Lymphatic: YES: Bleeding Problems; No: Blood Clots, Blood Transfusions, Brusing, Night Sweats, Pallor, Swollen Lymph Nodes, Other ENDOCRINE: No: Breast Changes, Galactorrhea, Hair Pattern Changes, Hot Flashes , Malaise/lethargy, Mood Swings, Palpitations, Polydipsia/polyuria, Skin Changes , Temperature Intolerance, Unexpected Weight Changes, Other Breast: No New/Changing Breast Lumps, No Nipple changes, No Nipple discharge, No Other Respiratory: No: Cough, Hemoptysis, Orthopnea, Pleuritic Pain, Shortness of breath, SOB with excertion, Sputum Changes, Stridor, Tachypnea, Wheezing, Other Cardiovascular: No Chest Pain, No Palpitations, No Orthopnea, No Paroxysmal Noc. Dyspnea, No Edema, No Lt Headedness, No Other Gastrointestinal: No Nausea, No Vomiting, No Abdominal Pain, No Diarrhea, No Constipation, No Melena, No Hematochezia, No Other Genitourinary: YES Dysuria, YES Frequency, YES Urgency, YES Pain, YES Flank Pain; No Incontinence, No Hematuria, No Retention, No Discharge, No Other, No , No , No , No , No , No , No Musculoskeletal: No Gait Disturbance, No Joint Pain, No Joint Stiffness, No Joint Swelling, No Muscle Pain, No Muscular Weakness, No Pain In:, No Swelling In:, No Other Neurological: No Behavorial Changes, No Bowel/Bladder ControlChng, No Confusion , No Dizziness, No Gait Disturbance, No Headaches, No Impaired Coord/balance, No Memory Loss, No Numbness/Tingling, No Seizures, No Speech Problems, No Tremors, No Visual Changes, No Weakness, No Other Skin: No Dry Skin, No Eczema, No Hair Changes, No Lumps, No Mole Changes, No Mottling, No Nail Changes, No Pruritus, No Rash, No Skin Lesion Changes, No Other, No Acne Physical Exam General: Alert, Oriented X3, Cooperative, No acute distress HEENT: Atraumatic, PERRLA, EOMI, Mucous membr. moist/pink Lungs: Clear to auscultation, Normal air movement Heart: S1S2, RRR, other (3/6 systolic) Abdomen: Normal bowel sounds, Soft, No hepatosplenomegaly, No masses, Other ( Vasiliy LQ and right flank) Rectal Exam: not examined Extremities: No clubbing, No cyanosis, No edema, Normal pulses, No tenderness/ swelling Skin: No rashes, No breakdown, No significant lesion Neuro: Normal gait, Normal speech, Strength at 5/5 X4 ext, Normal tone, Sensation intact, Cranial nerves 3-12 NL, Reflexes 2+ Psych/Mental Status: Mental status NL, Mood NL Vitals Vitals Vital Signs Date Time Temp Pulse Resp B/P (MAP) Pulse Ox O2 Delivery O2 Flow Rate FiO2 04/20/18 03:00 98.4 84 18 95/50 (65) 96 98.4 04/19/18 23:00 Room Air Labs Labs Laboratory Tests Test 04/19/18 18:30 04/19/18 18:33 04/19/18 19:24 Urine Collection Type Unknown Urine Color Yellow Urine Clarity Cloudy Urine pH 6.0 Urine Specific [place] 1.010 Urine Protein 100 mg/dL (NEG-TRACE) Urine Glucose (UA) Negative mg/dL (NEG) Urine Ketones (Stick) Negative mg/dL (NEG) Urine Blood Moderate (NEG) Urine Nitrite Positive (NEG) Urine Bilirubin Negative (NEG) Urine Urobilinogen Dipstick 1.0 mg/dL (0.2 mg/dL) Urine Leukocyte Esterase Large (NEG) Urine RBC Occ /HPF (0-2) Urine WBC Tntc /HPF (0-4) Urine Squamous Epithelial Cells Few /LPF Urine Bacteria Many /HPF (0-FEW) Bedside Urine HCG, Qualitative Hcg negative (Negative) White Blood Count 13.3 x10^3/uL (4.0-11.0) Red Blood Count 2.87 x10^6/uL (3.50-5.40) Hemoglobin 8.5 g/dL (12.0-15.5) Hematocrit 25.0 % (36.0-47.0) Mean Corpuscular Volume 87 fL (79-100) Mean Corpuscular Hemoglobin 29 pg (25-35) Mean Corpuscular Hemoglobin Concent 34 g/dL (31-37) Red Cell Distribution Width 17.9 % (11.5-14.5) Platelet Count 491 x10^3/uL (140-400) Neutrophils (%) (Auto) 70 % (31-73) Lymphocytes (%) (Auto) 22 % (24-48) Monocytes (%) (Auto) 6 % (0-9) Eosinophils (%) (Auto) 2 % (0-3) Basophils (%) (Auto) 1 % (0-3) Neutrophils # (Auto) 9.3 x10^3uL (1.8-7.7) Lymphocytes # (Auto) 2.9 x10^3/uL (1.0-4.8) Monocytes # (Auto) 0.7 x10^3/uL (0.0-1.1) Eosinophils # (Auto) 0.3 x10^3/uL (0.0-0.7) Basophils # (Auto) 0.1 x10^3/uL (0.0-0.2) Reticulocyte Count (auto) 7.5 % (0.5-2.5) Sodium Level 138 mmol/L (136-145) Potassium Level 3.8 mmol/L (3.5-5.1) Chloride Level 102 mmol/L (98-107) Carbon Dioxide Level 29 mmol/L (21-32) Anion Gap 7 (6-14) Blood Urea Nitrogen 6 mg/dL (7-20) Creatinine 0.5 mg/dL (0.6-1.0) Estimated GFR (Cockcroft-Gault) 188.5 BUN/Creatinine Ratio 12 (6-20) Glucose Level 89 mg/dL (70-99) Calcium Level 9.2 mg/dL (8.5-10.1) Total Bilirubin 2.7 mg/dL (0.2-1.0) Aspartate Amino Transf (AST/SGOT) 32 U/L (15-37) Alanine Aminotransferase (ALT/SGPT) 21 U/L (14-59) Alkaline Phosphatase 74 U/L (46-116) Total Protein 8.5 g/dL (6.4-8.2) Albumin 4.0 g/dL (3.4-5.0) Albumin/Globulin Ratio 0.9 (1.0-1.7) Lipase 52 U/L (73-393) Laboratory Tests Test 04/19/18 18:30 04/19/18 18:33 04/19/18 19:24 Urine Collection Type Unknown Urine Color Yellow Urine Clarity Cloudy Urine pH 6.0 Urine Specific [place] 1.010 Urine Protein 100 mg/dL (NEG-TRACE) Urine Glucose (UA) Negative mg/dL (NEG) Urine Ketones (Stick) Negative mg/dL (NEG) Urine Blood Moderate (NEG) Urine Nitrite Positive (NEG) Urine Bilirubin Negative (NEG) Urine Urobilinogen Dipstick 1.0 mg/dL (0.2 mg/dL) Urine Leukocyte Esterase Large (NEG) Urine RBC Occ /HPF (0-2) Urine WBC Tntc /HPF (0-4) Urine Squamous Epithelial Cells Few /LPF Urine Bacteria Many /HPF (0-FEW) Bedside Urine HCG, Qualitative Hcg negative (Negative) White Blood Count 13.3 x10^3/uL (4.0-11.0) Red Blood Count 2.87 x10^6/uL (3.50-5.40) Hemoglobin 8.5 g/dL (12.0-15.5) Hematocrit 25.0 % (36.0-47.0) Mean Corpuscular Volume 87 fL (79-100) Mean Corpuscular Hemoglobin 29 pg (25-35) Mean Corpuscular Hemoglobin Concent 34 g/dL (31-37) Red Cell Distribution Width 17.9 % (11.5-14.5) Platelet Count 491 x10^3/uL (140-400) Neutrophils (%) (Auto) 70 % (31-73) Lymphocytes (%) (Auto) 22 % (24-48) Monocytes (%) (Auto) 6 % (0-9) Eosinophils (%) (Auto) 2 % (0-3) Basophils (%) (Auto) 1 % (0-3) Neutrophils # (Auto) 9.3 x10^3uL (1.8-7.7) Lymphocytes # (Auto) 2.9 x10^3/uL (1.0-4.8) Monocytes # (Auto) 0.7 x10^3/uL (0.0-1.1) Eosinophils # (Auto) 0.3 x10^3/uL (0.0-0.7) Basophils # (Auto) 0.1 x10^3/uL (0.0-0.2) Reticulocyte Count (auto) 7.5 % (0.5-2.5) Sodium Level 138 mmol/L (136-145) Potassium Level 3.8 mmol/L (3.5-5.1) Chloride Level 102 mmol/L (98-107) Carbon Dioxide Level 29 mmol/L (21-32) Anion Gap 7 (6-14) Blood Urea Nitrogen 6 mg/dL (7-20) Creatinine 0.5 mg/dL (0.6-1.0) Estimated GFR (Cockcroft-Gault) 188.5 BUN/Creatinine Ratio 12 (6-20) Glucose Level 89 mg/dL (70-99) Calcium Level 9.2 mg/dL (8.5-10.1) Total Bilirubin 2.7 mg/dL (0.2-1.0) Aspartate Amino Transf (AST/SGOT) 32 U/L (15-37) Alanine Aminotransferase (ALT/SGPT) 21 U/L (14-59) Alkaline Phosphatase 74 U/L (46-116) Total Protein 8.5 g/dL (6.4-8.2) Albumin 4.0 g/dL (3.4-5.0) Albumin/Globulin Ratio 0.9 (1.0-1.7) Lipase 52 U/L (73-393) Images Images CT Abd/Pelvis - Minimal tree-in-bud nodular airspace disease is identified in the left lower lobe which may represent a bronchiolitis of infectious/ inflammatory etiology. 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 Mild fullness of the inferior moiety and associated ureter may be secondary to vesicoureteral reflux. Appendix is normal in appearance. IUD is present. 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 based on insurance restrictions will need referral to [facility] Sickle cell disease (persistent hemoglobin) - needs a spinner continuous in . Currently starting a crisis, will keep on her pain regimen. H/o trichomonas during - treated 11months post- - good recovery H/O PE - s/p 6 months oral anticoagulation. Will place on lovenox PPX Gallstones - asymptomatic, common in SCD patients, monitor Hemorrhoids - with GI bleed 05/2017. 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 Has some pulm congestion, possible pulm HTN, no problems here currently, should be monitored outpatient Frequent UTIs - urology consults FEN - General PPX - lovenox FULL CODE Inpatient for UTI causing a sickle cell crisis,likely at least 2-3 days inpatient ABDON GARCIA MD Apr 20, 2018 07:33
--- NOTE | 2018-04-20 09:10 | PDOC2 ---
CONSULT Date of Consult Date of Consult DATE: 04/20/18 TIME: 09:02 Reason for consultation: Sickle cell crisis Consult: Hematology oncology, Dr. 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 Past medical history: Sickle cell anemia with hereditary persistence of hemoglobin, and positive antibody for Jkb, seen at [facility] and in the past History of Trichomonas vaginitis during Denies history of acute chest syndrome, stroke, AVN, or prior exchange transfusion, but has had elevated ferritin to 649, May 2017 History of left lower lobe PE with possible infarct treated with 6 months of anticoagulation to resolution Hemorrhoid related GI bleed May 2017 Gallstones Cardiomegaly and pulmonary venous congestion on CT scan Left upper lobe 5 mm pulmonary nodule and trace pleural effusion seen on November 2017 CT angiogram Frequent UTIs Past surgical history: Flexible sigmoidoscopy Allergies: shellFish Medications: See attached list Social history: Single, one baby, 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, no 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 Family history: No cancers, sickle cell trait Review of systems: Dysuria, frequency, urgency, abdominal pain, back pain, otherwise 10 point review of systems negative Physical exam: Vitals reviewed Gen.: Well-nourished and well-developed in no acute distress HEENT: mucous membranes moist, head normocephalic atraumatic Neck: Supple, no lymphadenopathy Lymph nodes: No palpable lymphadenopathy neck or axilla Lungs: Breathing comfortably on room air, no evidence of respiratory distress Heart: Regular rate and rhythm Abdomen: Soft, sightly tender lower abdomen and right back, no significant right flank pain Extremities: No cyanosis or edema Skin: No obvious rashes or skin breakdown Neuro: Alert and oriented 3 Psych: Normal mood and affect Lab reviewed: White count 13.3, hemoglobin 8.5, platelets 491 retic count 7.5 HCG negative Creatinine 0.5 T bili 2.7 Lipase low Urinalysis with moderate blood, positive nitrite, large leuk esterase, too numerous to count white blood cell and many bacteria Rads reviewed: Abdominopelvic CT showed minimal tree in bed opacity left lower lobe, IUD, 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 Harris, records reviewed in [facility] and [facility], including labs and radiology, please see note for summary details. Assessment and Plan: She is a 22-year-old female with sickle cell anemia with hereditary persistence of hemoglobin who has done well in the past in general, but is admitted with UTI with history of frequent UTIs and right renal collecting abnormality with possible ureteral reflux Sickle cell crisis: On pain medications which are helping, IV fluids, on folic acid UTI: On antibiotics, urology will be consulted, either as inpatient or outpatient regarding frequent UTIs and CT findings DVT prophylaxis: Lovenox Elevated ferritin in May 2017, will recheck, currently on multivitamin with iron Thank you kindly for this consultation, and please do not hesitate to call with further questions. Current Medications Current Medications Current Medications Sodium Chloride 1,000 ml @ 1,000 mls/hr 1X ONCE IV Last administered on at 19:30; Start 04/19/18 at 18:45; Stop 04/19/18 at 19:44; Status DC Fentanyl Citrate (Fentanyl 2ml Vial) 50 mcg 1X ONCE IV Last administered on at 19:32; Start 04/19/18 at 18:45; Stop 04/19/18 at 18:46; Status DC Ceftriaxone Sodium (Rocephin) 1 gm 1X ONCE IVP Last administered on 04/19/18at 19:44; Start 04/19/18 at 19:30; Stop 04/19/18 at 19:31; Status DC Morphine Sulfate (Morphine Sulfate) 8 mg 1X ONCE IV Last administered on at 20:32; Start 04/19/18 at 20:00; Stop 04/19/18 at 20:01; Status DC Ondansetron HCl (Zofran) 4 mg PRN Q8HRS PRN IV NAUSEA/VOMITING Last administered on 04/19/18at 20:33; Start 04/19/18 at 20:30; Stop 04/20/18 at 20:29 Morphine Sulfate (Morphine Sulfate) 8 mg PRN Q4HRS PRN IV PAIN; Start 04/19/18 at 20:30; Stop 04/19/18 at 22:00; Status DC Sodium Chloride 1,000 ml @ 125 mls/hr 1X ONCE IV Last administered on at 20:30; Start 04/19/18 at 20:30; Stop 04/20/18 at 04:29; Status DC Folic Acid (Folic Acid) 1 mg DAILY PO ; Start 04/20/18 at 09:00 Nitrofurantoin Macrocrystals (Macrobid) 100 mg BID PO ; Start 04/20/18 at 09:00 Multivit/ Folic Acid/Iron (Multivitamin ) 1 tab DAILY PO ; Start 04/20/18 at 09:00 Acetaminophen/ Hydrocodone Bitart (Lortab 10/325) 1 tab PRN Q6HRS PRN PO PAIN Last administered on 04/20/18at 03:24; Start 04/19/18 at 22:00 Morphine Sulfate (Ms Contin) 15 mg 1X ONCE PO Last administered on 04/19/18at 22:15; Start 04/19/18 at 22:00; Stop 04/19/18 at 22:03; Status DC Morphine Sulfate (Morphine Sulfate) 10 mg PRN Q4HRS PRN IV PAIN; Start at 22:00 Sodium Chloride 1,000 ml @ 150 mls/hr Q6H40M IV Last administered on at 04:44; Start 04/19/18 at 22:15 Zolpidem Tartrate (Ambien) 5 mg PRN QHS PRN PO INSOMNIA Last administered on at 00:43; Start 04/20/18 at 00:45 Active Scripts Active Cephalexin 500 Mg Tablet 1 Tab PO BID Bactrim Ds Tablet (Sulfamethoxazole/Trimethoprim) 1 Each Tablet 1 Tab PO BID Acyclovir 800 Mg Tablet 1 Tab PO 5XDAY Flagyl (Metronidazole) 500 Mg Tablet 1 Tab PO BID Macrobid 100 Mg Capsule (Nitrofurantoin Monohyd/M-Cryst) 100 Mg Capsule 1 Cap PO BID Plus Iron Tablet (Pnv With Ca,No.72/Iron,Carb/Fa) 1 Each Tablet 1 Tab PO DAILY Cephalexin 500 Mg Tablet 1 Tab PO BID Folic Acid 1 Mg Tablet 1 Tab PO DAILY Reported Hydrocodone-Apap 10-325 (Hydrocodone Bit/Acetaminophen) 1 Each Tablet 1 Tab PO PRN Q4-6HRS PRN No Known Medications Prior To Admisstion (Info) Each 1 Each MC No Known Medications Prior To Admisstion (Info) Each 1 Each MC Allergies Allergies: Coded Allergies: iodine (Verified Allergy, Severe, anaphylaxis,rash, 12/22/17) Vitals VITALS Vital Signs Date Time Temp Pulse Resp B/P (MAP) Pulse Ox O2 Delivery O2 Flow Rate FiO2 04/20/18 07:00 98.3 75 18 95/51 (66) 99 Room Air 98.3 Labs Labs Laboratory Tests Test 04/19/18 18:30 04/19/18 18:33 04/19/18 19:24 Urine Collection Type Unknown Urine Color Yellow Urine Clarity Cloudy Urine pH 6.0 Urine Specific [place] 1.010 Urine Protein 100 mg/dL (NEG-TRACE) Urine Glucose (UA) Negative mg/dL (NEG) Urine Ketones (Stick) Negative mg/dL (NEG) Urine Blood Moderate (NEG) Urine Nitrite Positive (NEG) Urine Bilirubin Negative (NEG) Urine Urobilinogen Dipstick 1.0 mg/dL (0.2 mg/dL) Urine Leukocyte Esterase Large (NEG) Urine RBC Occ /HPF (0-2) Urine WBC Tntc /HPF (0-4) Urine Squamous Epithelial Cells Few /LPF Urine Bacteria Many /HPF (0-FEW) Bedside Urine HCG, Qualitative Hcg negative (Negative) White Blood Count 13.3 x10^3/uL (4.0-11.0) Red Blood Count 2.87 x10^6/uL (3.50-5.40) Hemoglobin 8.5 g/dL (12.0-15.5) Hematocrit 25.0 % (36.0-47.0) Mean Corpuscular Volume 87 fL (79-100) Mean Corpuscular Hemoglobin 29 pg (25-35) Mean Corpuscular Hemoglobin Concent 34 g/dL (31-37) Red Cell Distribution Width 17.9 % (11.5-14.5) Platelet Count 491 x10^3/uL (140-400) Neutrophils (%) (Auto) 70 % (31-73) Lymphocytes (%) (Auto) 22 % (24-48) Monocytes (%) (Auto) 6 % (0-9) Eosinophils (%) (Auto) 2 % (0-3) Basophils (%) (Auto) 1 % (0-3) Neutrophils # (Auto) 9.3 x10^3uL (1.8-7.7) Lymphocytes # (Auto) 2.9 x10^3/uL (1.0-4.8) Monocytes # (Auto) 0.7 x10^3/uL (0.0-1.1) Eosinophils # (Auto) 0.3 x10^3/uL (0.0-0.7) Basophils # (Auto) 0.1 x10^3/uL (0.0-0.2) Reticulocyte Count (auto) 7.5 % (0.5-2.5) Sodium Level 138 mmol/L (136-145) Potassium Level 3.8 mmol/L (3.5-5.1) Chloride Level 102 mmol/L (98-107) Carbon Dioxide Level 29 mmol/L (21-32) Anion Gap 7 (6-14) Blood Urea Nitrogen 6 mg/dL (7-20) Creatinine 0.5 mg/dL (0.6-1.0) Estimated GFR (Cockcroft-Gault) 188.5 BUN/Creatinine Ratio 12 (6-20) Glucose Level 89 mg/dL (70-99) Calcium Level 9.2 mg/dL (8.5-10.1) Total Bilirubin 2.7 mg/dL (0.2-1.0) Aspartate Amino Transf (AST/SGOT) 32 U/L (15-37) Alanine Aminotransferase (ALT/SGPT) 21 U/L (14-59) Alkaline Phosphatase 74 U/L (46-116) Total Protein 8.5 g/dL (6.4-8.2) Albumin 4.0 g/dL (3.4-5.0) Albumin/Globulin Ratio 0.9 (1.0-1.7) Lipase 52 U/L (73-393) Laboratory Tests Test 04/19/18 18:30 04/19/18 18:33 04/19/18 19:24 Urine Collection Type Unknown Urine Color Yellow Urine Clarity Cloudy Urine pH 6.0 Urine Specific [place] 1.010 Urine Protein 100 mg/dL (NEG-TRACE) Urine Glucose (UA) Negative mg/dL (NEG) Urine Ketones (Stick) Negative mg/dL (NEG) Urine Blood Moderate (NEG) Urine Nitrite Positive (NEG) Urine Bilirubin Negative (NEG) Urine Urobilinogen Dipstick 1.0 mg/dL (0.2 mg/dL) Urine Leukocyte Esterase Large (NEG) Urine RBC Occ /HPF (0-2) Urine WBC Tntc /HPF (0-4) Urine Squamous Epithelial Cells Few /LPF Urine Bacteria Many /HPF (0-FEW) Bedside Urine HCG, Qualitative Hcg negative (Negative) White Blood Count 13.3 x10^3/uL (4.0-11.0) Red Blood Count 2.87 x10^6/uL (3.50-5.40) Hemoglobin 8.5 g/dL (12.0-15.5) Hematocrit 25.0 % (36.0-47.0) Mean Corpuscular Volume 87 fL (79-100) Mean Corpuscular Hemoglobin 29 pg (25-35) Mean Corpuscular Hemoglobin Concent 34 g/dL (31-37) Red Cell Distribution Width 17.9 % (11.5-14.5) Platelet Count 491 x10^3/uL (140-400) Neutrophils (%) (Auto) 70 % (31-73) Lymphocytes (%) (Auto) 22 % (24-48) Monocytes (%) (Auto) 6 % (0-9) Eosinophils (%) (Auto) 2 % (0-3) Basophils (%) (Auto) 1 % (0-3) Neutrophils # (Auto) 9.3 x10^3uL (1.8-7.7) Lymphocytes # (Auto) 2.9 x10^3/uL (1.0-4.8) Monocytes # (Auto) 0.7 x10^3/uL (0.0-1.1) Eosinophils # (Auto) 0.3 x10^3/uL (0.0-0.7) Basophils # (Auto) 0.1 x10^3/uL (0.0-0.2) Reticulocyte Count (auto) 7.5 % (0.5-2.5) Sodium Level 138 mmol/L (136-145) Potassium Level 3.8 mmol/L (3.5-5.1) Chloride Level 102 mmol/L (98-107) Carbon Dioxide Level 29 mmol/L (21-32) Anion Gap 7 (6-14) Blood Urea Nitrogen 6 mg/dL (7-20) Creatinine 0.5 mg/dL (0.6-1.0) Estimated GFR (Cockcroft-Gault) 188.5 BUN/Creatinine Ratio 12 (6-20) Glucose Level 89 mg/dL (70-99) Calcium Level 9.2 mg/dL (8.5-10.1) Total Bilirubin 2.7 mg/dL (0.2-1.0) Aspartate Amino Transf (AST/SGOT) 32 U/L (15-37) Alanine Aminotransferase (ALT/SGPT) 21 U/L (14-59) Alkaline Phosphatase 74 U/L (46-116) Total Protein 8.5 g/dL (6.4-8.2) Albumin 4.0 g/dL (3.4-5.0) Albumin/Globulin Ratio 0.9 (1.0-1.7) Lipase 52 U/L (73-393) AUDREY COTTER MD Apr 20, 2018 09:10
[2018-04-20] MEDS: FOLIC ACID 1 MG TABLET. PO SCH (09:24)
[2018-04-20] MEDS: PRENATAL MULTIVITAMIN TABLET. PO SCH (09:25)
[2018-04-20] MEDS: NITROFURANTOIN MONOHYD/M-CRYST 100 MG CAPSULE. PO SCH ×2 (09:25→20:39)
[2018-04-20] MEDS: ENOXAPARIN 40 MG/0.4 ML SYRINGE. SQ SCH (09:31)
--- NOTE | 2018-04-20 10:14 | PDOC2 ---
KAUSHIKPABLO Yajaira BINDER CUTTER HAND 04/20/18 1013: UROLOGY CONSULT Date of Consult Date of Consult DATE: 04/20/18 TIME: 10:12 Reason for Consult Reason for Consult: Double ureter, history of sickle cell Referring Physician Referring Physician: Steven Identification/Chief Complaint Chief Complaint Double ureter, history of sickle cell, frequent UTI Source Source: Caregiver, Chart review, Patient History of Present Illness Reason for Visit: Patient is a 22 year old female with a PMH of sickle cell who presented through the ER last night with one week of bilateral low abdominal pain that radiates up around her back. She has a history of recurrent UTIs that develop go into Pyelonephritis. This is the third time in a year and a half that she has had such an infection. She was on Cipro for prophylaxis for some time, but this did not seem to do the job in preventing her UTI's. Today she admits some does admit some dysuria, frequency and perhaps some occasional difficulty with bladder emptying secondary to dysuria. She currently has no flank pain and no history of kidney stones that she is aware of. Past Medical History Heme/Onc: Other (Sickle Cell ) Renal/: Other (Frequent UTI; patient has had 3 UTI's that went into Pyelonhepritis ovet the past year and a half ) Current Problem List Problems: (1) Urinary tract infection (2) Pyelonephritis Current Medications Current Medications Current Medications Acetaminophen/ Hydrocodone Bitart (Lortab 10/325) 1 tab PRN Q6HRS PRN PO PAIN Last administered on 04/20/18at 09:31; Start 04/19/18 at 22:00 Ceftriaxone Sodium (Rocephin) 1 gm 1X ONCE IVP Last administered on 04/19/18at 19:44; Start 04/19/18 at 19:30; Stop 04/19/18 at 19:31; Status DC Enoxaparin Sodium (Lovenox 40mg Syringe) 40 mg Q24H SQ Last administered on at 09:31; Start 04/20/18 at 10:00 Fentanyl Citrate (Fentanyl 2ml Vial) 50 mcg 1X ONCE IV Last administered on at 19:32; Start 04/19/18 at 18:45; Stop 04/19/18 at 18:46; Status DC Folic Acid (Folic Acid) 1 mg DAILY PO Last administered on 04/20/18 09:24; Start 04/20/18 at 09:00 Morphine Sulfate (Morphine Sulfate) 8 mg 1X ONCE IV Last administered on at 20:32; Start 04/19/18 at 20:00; Stop 04/19/18 at 20:01; Status DC Morphine Sulfate (Morphine Sulfate) 8 mg PRN Q4HRS PRN IV PAIN; Start 04/19/18 at 20:30; Stop 04/19/18 at 22:00; Status DC Morphine Sulfate (Morphine Sulfate) 10 mg PRN Q4HRS PRN IV PAIN; Start at 22:00 Morphine Sulfate (Ms Contin) 15 mg 1X ONCE PO Last administered on 04/19/18at 22:15; Start 04/19/18 at 22:00; Stop 04/19/18 at 22:03; Status DC Nitrofurantoin Macrocrystals (Macrobid) 100 mg BID PO Last administered on 04/20 09:25; Start 04/20/18 at 09:00 Ondansetron HCl (Zofran) 4 mg PRN Q8HRS PRN IV NAUSEA/VOMITING Last administered on 04/19/18 20:33; Start 04/19/18 at 20:30; Stop 04/20/18 at 20:29 Multivit/ Folic Acid/Iron (Multivitamin ) 1 tab DAILY PO Last administered on 04/20/18at 09:25; Start 04/20/18 at 09:00 Sodium Chloride 1,000 ml @ 125 mls/hr 1X ONCE IV Last administered on at 20:30; Start 04/19/18 at 20:30; Stop 04/20/18 at 04:29; Status DC Sodium Chloride 1,000 ml @ 150 mls/hr Q6H40M IV Last administered on at 04:44; Start 04/19/18 at 22:15 Sodium Chloride 1,000 ml @ 1,000 mls/hr 1X ONCE IV Last administered on at 19:30; Start 04/19/18 at 18:45; Stop 04/19/18 at 19:44; Status DC Zolpidem Tartrate (Ambien) 5 mg PRN QHS PRN PO INSOMNIA Last administered on at 00:43; Start 04/20/18 at 00:45 Allergies Allergies: Coded Allergies: iodine (Verified Allergy, Severe, anaphylaxis,rash, 12/22/17) ROS Review Of Systems: CONSTITUTIONAL: No fever or chills EYES: No recent changes SKIN: No rash or itching CARDIOVASCULAR: No chest pain, syncope, palpitations, or edema RESPIRATORY: No SOB or cough GASTROINTESTINAL: No nausea, vomiting or abdominal pain NEUROLOGICAL: No headaches or weakness ENDOCRINE: No cold or heat intolerance GENITOURINARY: + dysuria, no hematuria, no frequency MUSCULOSKELETAL: No back pain or joint pain LYMPHATICS: No enlarged lymph nodes PSYCHIATRIC: No anxiety or depression Physical Exam Physical Exam: General: Pleasant, no acute distress, well groomed Eyes: conjunctiva anicteric, eyes full range of motion ENT: moist oral mucosa, normal dentition Neck: Trachea midline, no masses Respiratory: unlabored breathing, not using accessory muscles Back: + CVA tenderness on the right side, non tender on the left. Abdomen: soft, tender over the right lower quadrant non tender all other areas. Skin: no rashes or skin lesions on visualized skin Psych: normal mood, affect. Alert and oriented x 3. Vitals VITALS Vital Signs Date Time Temp Pulse Resp B/P (MAP) Pulse Ox O2 Delivery O2 Flow Rate FiO2 04/20/18 09:31 20 93 Room Air 04/20/18 07:00 98.3 75 95/51 (66) 98.3 Labs Labs Laboratory Tests Test 04/19/18 18:30 04/19/18 18:33 04/19/18 19:24 Urine Collection Type Unknown Urine Color Yellow Urine Clarity Cloudy Urine pH 6.0 Urine Specific [place] 1.010 Urine Protein 100 mg/dL (NEG-TRACE) Urine Glucose (UA) Negative mg/dL (NEG) Urine Ketones (Stick) Negative mg/dL (NEG) Urine Blood Moderate (NEG) Urine Nitrite Positive (NEG) Urine Bilirubin Negative (NEG) Urine Urobilinogen Dipstick 1.0 mg/dL (0.2 mg/dL) Urine Leukocyte Esterase Large (NEG) Urine RBC Occ /HPF (0-2) Urine WBC Tntc /HPF (0-4) Urine Squamous Epithelial Cells Few /LPF Urine Bacteria Many /HPF (0-FEW) Bedside Urine HCG, Qualitative Hcg negative (Negative) White Blood Count 13.3 x10^3/uL (4.0-11.0) Red Blood Count 2.87 x10^6/uL (3.50-5.40) Hemoglobin 8.5 g/dL (12.0-15.5) Hematocrit 25.0 % (36.0-47.0) Mean Corpuscular Volume 87 fL (79-100) Mean Corpuscular Hemoglobin 29 pg (25-35) Mean Corpuscular Hemoglobin Concent 34 g/dL (31-37) Red Cell Distribution Width 17.9 % (11.5-14.5) Platelet Count 491 x10^3/uL (140-400) Neutrophils (%) (Auto) 70 % (31-73) Lymphocytes (%) (Auto) 22 % (24-48) Monocytes (%) (Auto) 6 % (0-9) Eosinophils (%) (Auto) 2 % (0-3) Basophils (%) (Auto) 1 % (0-3) Neutrophils # (Auto) 9.3 x10^3uL (1.8-7.7) Lymphocytes # (Auto) 2.9 x10^3/uL (1.0-4.8) Monocytes # (Auto) 0.7 x10^3/uL (0.0-1.1) Eosinophils # (Auto) 0.3 x10^3/uL (0.0-0.7) Basophils # (Auto) 0.1 x10^3/uL (0.0-0.2) Reticulocyte Count (auto) 7.5 % (0.5-2.5) Sodium Level 138 mmol/L (136-145) Potassium Level 3.8 mmol/L (3.5-5.1) Chloride Level 102 mmol/L (98-107) Carbon Dioxide Level 29 mmol/L (21-32) Anion Gap 7 (6-14) Blood Urea Nitrogen 6 mg/dL (7-20) Creatinine 0.5 mg/dL (0.6-1.0) Estimated GFR (Cockcroft-Gault) 188.5 BUN/Creatinine Ratio 12 (6-20) Glucose Level 89 mg/dL (70-99) Calcium Level 9.2 mg/dL (8.5-10.1) Total Bilirubin 2.7 mg/dL (0.2-1.0) Aspartate Amino Transf (AST/SGOT) 32 U/L (15-37) Alanine Aminotransferase (ALT/SGPT) 21 U/L (14-59) Alkaline Phosphatase 74 U/L (46-116) Total Protein 8.5 g/dL (6.4-8.2) Albumin 4.0 g/dL (3.4-5.0) Albumin/Globulin Ratio 0.9 (1.0-1.7) Lipase 52 U/L (73-393) Laboratory Tests Test 04/19/18 18:30 04/19/18 18:33 04/19/18 19:24 Urine Collection Type Unknown Urine Color Yellow Urine Clarity Cloudy Urine pH 6.0 Urine Specific [place] 1.010 Urine Protein 100 mg/dL (NEG-TRACE) Urine Glucose (UA) Negative mg/dL (NEG) Urine Ketones (Stick) Negative mg/dL (NEG) Urine Blood Moderate (NEG) Urine Nitrite Positive (NEG) Urine Bilirubin Negative (NEG) Urine Urobilinogen Dipstick 1.0 mg/dL (0.2 mg/dL) Urine Leukocyte Esterase Large (NEG) Urine RBC Occ /HPF (0-2) Urine WBC Tntc /HPF (0-4) Urine Squamous Epithelial Cells Few /LPF Urine Bacteria Many /HPF (0-FEW) Bedside Urine HCG, Qualitative Hcg negative (Negative) White Blood Count 13.3 x10^3/uL (4.0-11.0) Red Blood Count 2.87 x10^6/uL (3.50-5.40) Hemoglobin 8.5 g/dL (12.0-15.5) Hematocrit 25.0 % (36.0-47.0) Mean Corpuscular Volume 87 fL (79-100) Mean Corpuscular Hemoglobin 29 pg (25-35) Mean Corpuscular Hemoglobin Concent 34 g/dL (31-37) Red Cell Distribution Width 17.9 % (11.5-14.5) Platelet Count 491 x10^3/uL (140-400) Neutrophils (%) (Auto) 70 % (31-73) Lymphocytes (%) (Auto) 22 % (24-48) Monocytes (%) (Auto) 6 % (0-9) Eosinophils (%) (Auto) 2 % (0-3) Basophils (%) (Auto) 1 % (0-3) Neutrophils # (Auto) 9.3 x10^3uL (1.8-7.7) Lymphocytes # (Auto) 2.9 x10^3/uL (1.0-4.8) Monocytes # (Auto) 0.7 x10^3/uL (0.0-1.1) Eosinophils # (Auto) 0.3 x10^3/uL (0.0-0.7) Basophils # (Auto) 0.1 x10^3/uL (0.0-0.2) Reticulocyte Count (auto) 7.5 % (0.5-2.5) Sodium Level 138 mmol/L (136-145) Potassium Level 3.8 mmol/L (3.5-5.1) Chloride Level 102 mmol/L (98-107) Carbon Dioxide Level 29 mmol/L (21-32) Anion Gap 7 (6-14) Blood Urea Nitrogen 6 mg/dL (7-20) Creatinine 0.5 mg/dL (0.6-1.0) Estimated GFR (Cockcroft-Gault) 188.5 BUN/Creatinine Ratio 12 (6-20) Glucose Level 89 mg/dL (70-99) Calcium Level 9.2 mg/dL (8.5-10.1) Total Bilirubin 2.7 mg/dL (0.2-1.0) Aspartate Amino Transf (AST/SGOT) 32 U/L (15-37) Alanine Aminotransferase (ALT/SGPT) 21 U/L (14-59) Alkaline Phosphatase 74 U/L (46-116) Total Protein 8.5 g/dL (6.4-8.2) Albumin 4.0 g/dL (3.4-5.0) Albumin/Globulin Ratio 0.9 (1.0-1.7) Lipase 52 U/L (73-393) Images Images CT ABD PELVIS Impression: Minimal tree-in-bud nodular airspace disease is identified in the left lower lobe which may represent a bronchiolitis of infectious/inflammatory etiology. 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 Mild fullness of the inferior moiety and associated ureter may be secondary to vesicoureteral reflux. Appendix is normal in appearance. 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 Mild fullness of the inferior moiety 2ndary to vesicoureteral reflux? Bladder scan patient. If PVR greater than 350, please insert Morales catheter and record initial amount out. If PVR less than 350, leave Morales catheter out and encourage voiding. Patient will need to establish care with a urologist on discharge, recommend she follow up with [facility] within 30 days of discharge. Pt given contact information. Will have Dr. You review films for further recommendations. ANTHONY YOU MD 04/20/18 1527: UROLOGY CONSULT Assessment/Plan Assessment/Plan uti right duplicated ureter with suspected lower moiety reflux. recommend [facility] and MAG3 w lasix once urine sterility achieved. PABLO FAULKNER APRN Apr 20, 2018 10:13 ANTHONY YOU MD Apr 20, 2018 15:27
[2018-04-20 11:00] VITALS: BP 95/54
[2018-04-20] MEDS: MORPHINE SULFATE 10 MG/ML VIAL. IV PRN (11:01)
--- NOTE | 2018-04-20 11:28 | NUR ---
SW reviewed pt medical chart and evaluated for dc needs. Pt is from home with family and admitted for sickle cell crisis. PT/OT has not been ordered. There are no dc needs at this time. SW will be available if pt's condition changes and dc planning is required.
[2018-04-20 15:00] VITALS: BP 98/56
[2018-04-20] MEDS: ONDANSETRON PF 4 MG/2 ML VIAL. IV PRN (16:11)
[2018-04-20 19:00] VITALS: BP 121/54
[2018-04-20] MEDS: PROMETHAZINE 12.5 MG TABLET. PO PRN (20:39)
[2018-04-20] MEDS: MECLIZINE HCL 12.5 MG TABLET. PO PRN (20:39)
[2018-04-20 23:00] VITALS: BP 114/58
[2018-04-21] MEDS: IV NORMAL SALINE 1000ML BAG 1,000 ML IV SCH ×4 (02:50→23:01)
[2018-04-21 03:29] VITALS: BP 107/63
[2018-04-21 04:53] LABS: BASO # 0.1 x10^3/uL (0.0-0.2); BASO % 1 % (0-3); EOS # 0.4 x10^3/uL (0.0-0.7); EOS % 5 % (0-3); HEMATOCRIT 21.1 % (36.0-47.0); HEMOGLOBIN 7.4 g/dL (12.0-15.5); LYMPH # 3.9 x10^3/uL (1.0-4.8); LYMPH % 44 % (24-48); MEAN CORPUSCULAR HEMOGLOBIN 30 pg (25-35); MEAN CORPUSCULAR HGB CONC 35 g/dL (31-37); MEAN CORPUSCULAR VOLUME 87 fL (79-100); MONO # 0.7 x10^3/uL (0.0-1.1); MONO % 8 % (0-9); NEUT # 3.8 x10^3uL (1.8-7.7); NEUT % 43 % (31-73); PLATELET COUNT 424 x10^3/uL (140-400); RED BLOOD COUNT 2.43 x10^6/uL (3.50-5.40); RED CELL DISTRIBUTION WIDTH 17.6 % (11.5-14.5); WHITE BLOOD COUNT 8.9 x10^3/uL (4.0-11.0)
[2018-04-21 07:00] VITALS: BP 113/59
[2018-04-21] MEDS: FOLIC ACID 1 MG TABLET. PO SCH (08:56)
[2018-04-21] MEDS: NITROFURANTOIN MONOHYD/M-CRYST 100 MG CAPSULE. PO SCH (08:56)
[2018-04-21] MEDS: ENOXAPARIN 40 MG/0.4 ML SYRINGE. SQ SCH (08:56)
[2018-04-21] MEDS: PRENATAL MULTIVITAMIN TABLET. PO SCH (08:56)
[2018-04-21] MEDS: MORPHINE SULFATE 10 MG/ML VIAL. IV PRN ×3 (08:57→20:39)
--- NOTE | 2018-04-21 09:17 | PDOC ---
Progress Note Subjective Subjective some back pain. af vssn ROS ROS No nausea No vomiting No pain No rash Vital Sign Vital Signs Vital Signs Date Time Temp Pulse Resp B/P (MAP) Pulse Ox O2 Delivery O2 Flow Rate FiO2 04/21/18 08:57 Room Air 04/21/18 03:29 98.6 74 18 107/63 (78) 94 98.6 Physical Exam PHYSICAL EXAM GENERAL: NAD, Alert HEENT: PERRL, OC/OP NECK: Supple, no JVD, no LN LUNGS: Clear HEART: S1S2, no gallop, no murmur ABD: Soft, NT, no organomegaly, no rebound EXT: No edema, no cyanosis FLIGHT TEST MECHANIC: Alert, oriented x 3, no focal neurologic deficit SKIN: No rash IV: ok Labs Lab Laboratory Tests Test 04/21/18 04:30 White Blood Count 8.9 x10^3/uL (4.0-11.0) Red Blood Count 2.43 x10^6/uL (3.50-5.40) Hemoglobin 7.4 g/dL (12.0-15.5) Hematocrit 21.1 % (36.0-47.0) Mean Corpuscular Volume 87 fL (79-100) Mean Corpuscular Hemoglobin 30 pg (25-35) Mean Corpuscular Hemoglobin Concent 35 g/dL (31-37) Red Cell Distribution Width 17.6 % (11.5-14.5) Platelet Count 424 x10^3/uL (140-400) Neutrophils (%) (Auto) 43 % (31-73) Lymphocytes (%) (Auto) 44 % (24-48) Monocytes (%) (Auto) 8 % (0-9) Eosinophils (%) (Auto) 5 % (0-3) Basophils (%) (Auto) 1 % (0-3) Neutrophils # (Auto) 3.8 x10^3uL (1.8-7.7) Lymphocytes # (Auto) 3.9 x10^3/uL (1.0-4.8) Monocytes # (Auto) 0.7 x10^3/uL (0.0-1.1) Eosinophils # (Auto) 0.4 x10^3/uL (0.0-0.7) Basophils # (Auto) 0.1 x10^3/uL (0.0-0.2) Iron Level 98 ug/dL (50-170) Total Iron Binding Capacity 203 ug/dL (250-450) Iron Saturation 48 % (15-34) Ferritin 168 ng/mL (8-252) Objective Assessment right upper tract UTI right duplicated ureter Plan Plan of Care rec 2 weeks of gu specific abx. suppressive TMP 100mg for 3mos after that. [facility] and [facility] as OP or upon discharge. Will sign off. ANTHONY LEON MD Apr 21, 2018 09:16
--- NOTE | 2018-04-21 09:46 | PDOC ---
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 Currently starting a crisis, will keep on her pain regimen. H/o trichomonas during - treated 11months post- - good recovery H/O PE - s/p 6 months oral anticoagulation. Will place on lovenox PPX Gallstones - asymptomatic, common in SCD patients, monitor Hemorrhoids - with GI bleed 05/2017. 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 Has some pulm congestion, possible pulm HTN, no problems here currently, should be monitored outpatient Frequent UTIs - urology consults FEN - General PPX - lovenox FULL CODE Inpatient for UTI causing a sickle cell crisis,likely at least 2-3 days inpatient History of Present Illness History of Present Illness 22 year old female with a PMH of sickle cell disease (persistent hemoglobin) who presents with one week of bilateral low abdominal pain that radiates up around her back. There is no associated nausea, vomiting, diarrhea. She has not found anything that makes it better or worse. Additionally she has a history of recurring UTIs and complains of dysuria, frequency, and vaginal itching for the past two weeks. Denies discharge. In regards to her sickle cell she thinks her last pain crisis was 8-10 months ago. Patient however reports diffuse sharp body pains that she says are indicative of the start of a pain crisis. She is up to date on her immunizations and does not take hydroxyurea. She has history of gallstones and denies any abdominal surgery. She has one child and had a PE after giving in April of 2017 but denies recurrence of blood clot. Reportedly she stopped Xarelto several months ago. Currently she denies chest pain and shortness of breath. 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 Right flank pain She still has some flank pain today. [place] lightheaded and a little confused yesterday. Seen by urology, offered uretoscopy. Seen by Heme, on lovenox for ppx. Plan: IV rocephin for pyelo on right IV fluids for sickle crisis Pain control Consider cystoscopy-uretoscopy per urology if still in house on Monday, otherwise will need f/u at [facility] in the very near future. Cont inpatient likely for at least another 1-2 days Vitals Vitals Vital Signs Date Time Temp Pulse Resp B/P (MAP) Pulse Ox O2 Delivery O2 Flow Rate FiO2 04/21/18 08:57 Room Air 04/21/18 07:00 97.9 72 16 113/59 (77) 94 97.9 Physical Exam Physical Exam GENERAL: NAD, Alert HEENT: PERRL, OC/OP NECK: Supple, no JVD, no LN LUNGS: Clear HEART: S1S2, no gallop, no murmur ABD: Soft, NT, no organomegaly, no rebound EXT: No edema, no cyanosis RETIREMENT ADMINISTRATOR: Alert, oriented x 3, no focal neurologic deficit SKIN: No rash IV: ok General: Alert, Oriented X3, Cooperative, No acute distress Lungs: Clear Abdomen: Normal bowel sounds, Soft, No hepatosplenomegaly, No masses, Other ( Vasiliy LQ and right flank) Extremities: No clubbing, No cyanosis, No edema, Normal pulses, No tenderness/ swelling Skin: No rashes, No breakdown, No significant lesion Labs LABS Laboratory Tests Test 04/21/18 04:30 White Blood Count 8.9 x10^3/uL (4.0-11.0) Red Blood Count 2.43 x10^6/uL (3.50-5.40) Hemoglobin 7.4 g/dL (12.0-15.5) Hematocrit 21.1 % (36.0-47.0) Mean Corpuscular Volume 87 fL (79-100) Mean Corpuscular Hemoglobin 30 pg (25-35) Mean Corpuscular Hemoglobin Concent 35 g/dL (31-37) Red Cell Distribution Width 17.6 % (11.5-14.5) Platelet Count 424 x10^3/uL (140-400) Neutrophils (%) (Auto) 43 % (31-73) Lymphocytes (%) (Auto) 44 % (24-48) Monocytes (%) (Auto) 8 % (0-9) Eosinophils (%) (Auto) 5 % (0-3) Basophils (%) (Auto) 1 % (0-3) Neutrophils # (Auto) 3.8 x10^3uL (1.8-7.7) Lymphocytes # (Auto) 3.9 x10^3/uL (1.0-4.8) Monocytes # (Auto) 0.7 x10^3/uL (0.0-1.1) Eosinophils # (Auto) 0.4 x10^3/uL (0.0-0.7) Basophils # (Auto) 0.1 x10^3/uL (0.0-0.2) Iron Level 98 ug/dL (50-170) Total Iron Binding Capacity 203 ug/dL (250-450) Iron Saturation 48 % (15-34) Ferritin 168 ng/mL (8-252) Comment Review of Relevant I have reviewed the following items samanta (where applicable) has been applied. Labs Laboratory Tests Test 04/19/18 18:30 04/19/18 18:33 04/19/18 19:24 04/21/18 04:30 Urine Collection Type Unknown Urine Color Yellow Urine Clarity Cloudy Urine pH 6.0 Urine Specific Ross 1.010 Urine Protein 100 mg/dL (NEG-TRACE) Urine Glucose (UA) Negative mg/dL (NEG) Urine Ketones (Stick) Negative mg/dL (NEG) Urine Blood Moderate (NEG) Urine Nitrite Positive (NEG) Urine Bilirubin Negative (NEG) Urine Urobilinogen Dipstick 1.0 mg/dL (0.2 mg/dL) Urine Leukocyte Esterase Large (NEG) Urine RBC Occ /HPF (0-2) Urine WBC Tntc /HPF (0-4) Urine Squamous Epithelial Cells Few /LPF Urine Bacteria Many /HPF (0-FEW) Bedside Urine HCG, Qualitative Hcg negative (Negative) White Blood Count 13.3 x10^3/uL (4.0-11.0) 8.9 x10^3/uL (4.0-11.0) Red Blood Count 2.87 x10^6/uL (3.50-5.40) 2.43 x10^6/uL (3.50-5.40) Hemoglobin 8.5 g/dL (12.0-15.5) 7.4 g/dL (12.0-15.5) Hematocrit 25.0 % (36.0-47.0) 21.1 % (36.0-47.0) Mean Corpuscular Volume 87 fL (79-100) 87 fL (79-100) Mean Corpuscular Hemoglobin 29 pg (25-35) 30 pg (25-35) Mean Corpuscular Hemoglobin Concent 34 g/dL (31-37) 35 g/dL (31-37) Red Cell Distribution Width 17.9 % (11.5-14.5) 17.6 % (11.5-14.5) Platelet Count 491 x10^3/uL (140-400) 424 x10^3/uL (140-400) Neutrophils (%) (Auto) 70 % (31-73) 43 % (31-73) Lymphocytes (%) (Auto) 22 % (24-48) 44 % (24-48) Monocytes (%) (Auto) 6 % (0-9) 8 % (0-9) Eosinophils (%) (Auto) 2 % (0-3) 5 % (0-3) Basophils (%) (Auto) 1 % (0-3) 1 % (0-3) Neutrophils # (Auto) 9.3 x10^3uL (1.8-7.7) 3.8 x10^3uL (1.8-7.7) Lymphocytes # (Auto) 2.9 x10^3/uL (1.0-4.8) 3.9 x10^3/uL (1.0-4.8) Monocytes # (Auto) 0.7 x10^3/uL (0.0-1.1) 0.7 x10^3/uL (0.0-1.1) Eosinophils # (Auto) 0.3 x10^3/uL (0.0-0.7) 0.4 x10^3/uL (0.0-0.7) Basophils # (Auto) 0.1 x10^3/uL (0.0-0.2) 0.1 x10^3/uL (0.0-0.2) Reticulocyte Count (auto) 7.5 % (0.5-2.5) Sodium Level 138 mmol/L (136-145) Potassium Level 3.8 mmol/L (3.5-5.1) Chloride Level 102 mmol/L (98-107) Carbon Dioxide Level 29 mmol/L (21-32) Anion Gap 7 (6-14) Blood Urea Nitrogen 6 mg/dL (7-20) Creatinine 0.5 mg/dL (0.6-1.0) Estimated GFR (Cockcroft-Gault) 188.5 BUN/Creatinine Ratio 12 (6-20) Glucose Level 89 mg/dL (70-99) Calcium Level 9.2 mg/dL (8.5-10.1) Total Bilirubin 2.7 mg/dL (0.2-1.0) Aspartate Amino Transf (AST/SGOT) 32 U/L (15-37) Alanine Aminotransferase (ALT/SGPT) 21 U/L (14-59) Alkaline Phosphatase 74 U/L (46-116) Total Protein 8.5 g/dL (6.4-8.2) Albumin 4.0 g/dL (3.4-5.0) Albumin/Globulin Ratio 0.9 (1.0-1.7) Lipase 52 U/L (73-393) Iron Level 98 ug/dL (50-170) Total Iron Binding Capacity 203 ug/dL (250-450) Iron Saturation 48 % (15-34) Ferritin 168 ng/mL (8-252) Laboratory Tests Test 04/21/18 04:30 White Blood Count 8.9 x10^3/uL (4.0-11.0) Red Blood Count 2.43 x10^6/uL (3.50-5.40) Hemoglobin 7.4 g/dL (12.0-15.5) Hematocrit 21.1 % (36.0-47.0) Mean Corpuscular Volume 87 fL (79-100) Mean Corpuscular Hemoglobin 30 pg (25-35) Mean Corpuscular Hemoglobin Concent 35 g/dL (31-37) Red Cell Distribution Width 17.6 % (11.5-14.5) Platelet Count 424 x10^3/uL (140-400) Neutrophils (%) (Auto) 43 % (31-73) Lymphocytes (%) (Auto) 44 % (24-48) Monocytes (%) (Auto) 8 % (0-9) Eosinophils (%) (Auto) 5 % (0-3) Basophils (%) (Auto) 1 % (0-3) Neutrophils # (Auto) 3.8 x10^3uL (1.8-7.7) Lymphocytes # (Auto) 3.9 x10^3/uL (1.0-4.8) Monocytes # (Auto) 0.7 x10^3/uL (0.0-1.1) Eosinophils # (Auto) 0.4 x10^3/uL (0.0-0.7) Basophils # (Auto) 0.1 x10^3/uL (0.0-0.2) Iron Level 98 ug/dL (50-170) Total Iron Binding Capacity 203 ug/dL (250-450) Iron Saturation 48 % (15-34) Ferritin 168 ng/mL (8-252) Medications Current Medications Sodium Chloride 1,000 ml @ 1,000 mls/hr 1X ONCE IV Last administered on at 19:30; Start 04/19/18 at 18:45; Stop 04/19/18 at 19:44; Status DC Fentanyl Citrate (Fentanyl 2ml Vial) 50 mcg 1X ONCE IV Last administered on at 19:32; Start 04/19/18 at 18:45; Stop 04/19/18 at 18:46; Status DC Ceftriaxone Sodium (Rocephin) 1 gm 1X ONCE IVP Last administered on 04/19/18at 19:44; Start 04/19/18 at 19:30; Stop 04/19/18 at 19:31; Status DC Morphine Sulfate (Morphine Sulfate) 8 mg 1X ONCE IV Last administered on at 20:32; Start 04/19/18 at 20:00; Stop 04/19/18 at 20:01; Status DC Ondansetron HCl (Zofran) 4 mg PRN Q8HRS PRN IV NAUSEA/VOMITING Last administered on 04/20/18at 16:11; Start 04/19/18 at 20:30; Stop 04/20/18 at 20:29 ; Status DC Morphine Sulfate (Morphine Sulfate) 8 mg PRN Q4HRS PRN IV PAIN; Start 04/19/18 at 20:30; Stop 04/19/18 at 22:00; Status DC Sodium Chloride 1,000 ml @ 125 mls/hr 1X ONCE IV Last administered on at 20:30; Start 04/19/18 at 20:30; Stop 04/20/18 at 04:29; Status DC Folic Acid (Folic Acid) 1 mg DAILY PO Last administered on 04/21/18 08:56; Start 04/20/18 at 09:00 Nitrofurantoin Macrocrystals (Macrobid) 100 mg BID PO Last administered on 04/21 08:56; Start 04/20/18 at 09:00 Multivit/ Folic Acid/Iron (Multivitamin ) 1 tab DAILY PO Last administered on 04/21/18 08:56; Start 04/20/18 at 09:00 Acetaminophen/ Hydrocodone Bitart (Lortab 10/325) 1 tab PRN Q6HRS PRN PO PAIN Last administered on 04/20/18 09:31; Start 04/19/18 at 22:00 Morphine Sulfate (Ms Contin) 15 mg 1X ONCE PO Last administered on 04/19/18 22:15; Start 04/19/18 at 22:00; Stop 04/19/18 at 22:03; Status DC Morphine Sulfate (Morphine Sulfate) 10 mg PRN Q4HRS PRN IV PAIN Last administered on 04/21/18 08:57; Start 04/19/18 at 22:00 Sodium Chloride 1,000 ml @ 150 mls/hr Q6H40M IV Last administered on 08:57; Start 04/19/18 at 22:15 Zolpidem Tartrate (Ambien) 5 mg PRN QHS PRN PO INSOMNIA Last administered on 20:39; Start 04/20/18 at 00:45 Enoxaparin Sodium (Lovenox 40mg Syringe) 40 mg Q24H SQ Last administered on 08:56; Start 04/20/18 at 10:00 Meclizine HCl (Antivert) 25 mg PRN Q6HRS PRN PO DIZZINESS Last administered on 04/20/18 20:39; Start 04/20/18 at 20:30 Promethazine HCl (Phenergan) 12.5 mg PRN Q6HRS PRN PO NAUSEA/VOMITING Last administered on 04/20/18 20:39; Start 04/20/18 at 20:30 Active Scripts Active Cephalexin 500 Mg Tablet 1 Tab PO BID Bactrim Ds Tablet (Sulfamethoxazole/Trimethoprim) 1 Each Tablet 1 Tab PO BID Acyclovir 800 Mg Tablet 1 Tab PO 5XDAY Flagyl (Metronidazole) 500 Mg Tablet 1 Tab PO BID Macrobid 100 Mg Capsule (Nitrofurantoin Monohyd/M-Cryst) 100 Mg Capsule 1 Cap PO BID Plus Iron Tablet (Pnv With Ca,No.72/Iron,Carb/Fa) 1 Each Tablet 1 Tab PO DAILY Cephalexin 500 Mg Tablet 1 Tab PO BID Folic Acid 1 Mg Tablet 1 Tab PO DAILY Reported Hydrocodone-Apap 10-325 (Hydrocodone Bit/Acetaminophen) 1 Each Tablet 1 Tab PO PRN Q4-6HRS PRN No Known Medications Prior To Admisstion (Info) Each 1 Each No Known Medications Prior To Admisstion (Info) Each 1 Each Vitals/I & O Vital Sign - Last 24 Hours 04/20/18 04/20/18 04/20/18 04/20/18 10:35 11:00 11:01 11:35 Temp 98.0 98.0 Pulse 75 Resp 20 18 20 20 B/P (MAP) 95/54 (68) Pulse Ox 93 99 93 93 O2 Delivery Room Air Room Air Room Air 04/20/18 04/20/18 04/20/18 04/20/18 15:00 19:00 20:00 23:00 Temp 97.9 98.4 98.0 97.9 98.4 98.0 Pulse 75 80 68 Resp 18 16 14 B/P (MAP) 98/56 (70) 121/54 (76) 114/58 (76) Pulse Ox 99 97 95 O2 Delivery Room Air Room Air Room Air Room Air 04/21/18 04/21/18 04/21/18 03:29 07:00 08:57 Temp 98.6 97.9 98.6 97.9 Pulse 74 72 Resp 18 16 B/P (MAP) 107/63 (78) 113/59 (77) Pulse Ox 94 94 O2 Delivery Room Air Room Air Room Air Intake and Output 04/20/18 04/20/18 04/21/18 14:59 22:59 06:59 Intake Total 600 ml 580 ml 200 ml Output Total 800 ml 900 ml Balance -200 ml 580 ml -700 ml ABDON GARCIA MD Apr 21, 2018 09:46
[2018-04-21] MEDS: cefTRIAXone IV Push 1 GM VIAL. IVP SCH (10:04)
[2018-04-21 11:25] VITALS: BP 109/53
[2018-04-21] MEDS ORDERED: FLUCONAZOLE 100 MG TABLET. PO ONE (13:45)
[2018-04-21 15:00] VITALS: BP 114/67
[2018-04-21 19:00] VITALS: BP 117/80
[2018-04-21 22:35] VITALS: BP 126/83
[2018-04-21] MEDS: HYDROcodone/APAP 10/325 1 TAB TABLET PO PRN (23:01)
[2018-04-21] MEDS: ZOLPIDEM 5 MG TABLET. PO PRN (23:01)
[2018-04-22 02:48] VITALS: BP 96/61
[2018-04-22] MEDS: IV NORMAL SALINE 1000ML BAG 1,000 ML IV SCH ×4 (05:48→22:08)
[2018-04-22] MEDS: MORPHINE SULFATE 10 MG/ML VIAL. IV PRN (06:08)
[2018-04-22 07:00] VITALS: BP 108/58
--- NOTE | 2018-04-22 08:26 | PDOC ---
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 Currently starting a crisis, will keep on her pain regimen. H/o trichomonas during - treated 11months post- - good recovery H/O PE - s/p 6 months oral anticoagulation. Will place on lovenox PPX Gallstones - asymptomatic, common in SCD patients, monitor Hemorrhoids - with GI bleed 05/2017. 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 Has some pulm congestion, possible pulm HTN, no problems here currently, should be monitored outpatient Frequent UTIs - urology consults FEN - General PPX - lovenox FULL CODE Inpatient for UTI causing a sickle cell crisis,likely at least 2-3 days inpatient History of Present Illness History of Present Illness 22 year old female with a PMH of sickle cell disease (persistent hemoglobin) who presents with one week of bilateral low abdominal pain that radiates up around her back. There is no associated nausea, vomiting, diarrhea. She has not found anything that makes it better or worse. Additionally she has a history of recurring UTIs and complains of dysuria, frequency, and vaginal itching for the past two weeks. Denies discharge. In regards to her sickle cell she thinks her last pain crisis was 8-10 months ago. Patient however reports diffuse sharp body pains that she says are indicative of the start of a pain crisis. She is up to date on her immunizations and does not take hydroxyurea. She has history of gallstones and denies any abdominal surgery. She has one child and had a PE after giving in April of 2017 but denies recurrence of blood clot. Reportedly she stopped Xarelto several months ago. Currently she denies chest pain and shortness of breath. 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 Right flank pain She still has some flank pain today that is actually worse. [place] lightheaded and a little confused yesterday. She is very constipated. Seen by urology, offered uretoscopy. Seen by [place], on lovenox for ppx. Plan: IV rocephin for pyelo on right Bowel regimen Change morphine to dilaudid IV fluids for sickle crisis Pain control Consider cystoscopy-uretoscopy per urology if still in house on Monday, otherwise will need f/u at [facility] in the very near future. Cont inpatient likely for at least another 1-2 days Vitals Vitals Vital Signs Date Time Temp Pulse Resp B/P (MAP) Pulse Ox O2 Delivery O2 Flow Rate FiO2 04/22/18 07:00 99.4 92 16 108/58 (75) 95 Room Air 99.4 Physical Exam Physical Exam GENERAL: NAD, Alert HEENT: PERRL, OC/OP NECK: Supple, no JVD, no LN LUNGS: Clear HEART: S1S2, no gallop, no murmur ABD: Soft, NT, no organomegaly, no rebound EXT: No edema, no cyanosis OUTSIDE B2B SALES: Alert, oriented x 3, no focal neurologic deficit SKIN: No rash IV: ok General: Alert, Oriented X3, Cooperative, No acute distress Lungs: Clear Abdomen: Normal bowel sounds, Soft, No hepatosplenomegaly, No masses, Other ( Vasiliy LQ and right flank) Extremities: No clubbing, No cyanosis, No edema, Normal pulses, No tenderness/ swelling Skin: No rashes, No breakdown, No significant lesion Comment Review of Relevant I have reviewed the following items samanta (where applicable) has been applied. Labs Laboratory Tests Test 04/21/18 04:30 White Blood Count 8.9 x10^3/uL (4.0-11.0) Red Blood Count 2.43 x10^6/uL (3.50-5.40) Hemoglobin 7.4 g/dL (12.0-15.5) Hematocrit 21.1 % (36.0-47.0) Mean Corpuscular Volume 87 fL (79-100) Mean Corpuscular Hemoglobin 30 pg (25-35) Mean Corpuscular Hemoglobin Concent 35 g/dL (31-37) Red Cell Distribution Width 17.6 % (11.5-14.5) Platelet Count 424 x10^3/uL (140-400) Neutrophils (%) (Auto) 43 % (31-73) Lymphocytes (%) (Auto) 44 % (24-48) Monocytes (%) (Auto) 8 % (0-9) Eosinophils (%) (Auto) 5 % (0-3) Basophils (%) (Auto) 1 % (0-3) Neutrophils # (Auto) 3.8 x10^3uL (1.8-7.7) Lymphocytes # (Auto) 3.9 x10^3/uL (1.0-4.8) Monocytes # (Auto) 0.7 x10^3/uL (0.0-1.1) Eosinophils # (Auto) 0.4 x10^3/uL (0.0-0.7) Basophils # (Auto) 0.1 x10^3/uL (0.0-0.2) Iron Level 98 ug/dL (50-170) Total Iron Binding Capacity 203 ug/dL (250-450) Iron Saturation 48 % (15-34) Ferritin 168 ng/mL (8-252) Microbiology 04/19/18 Urine Culture - Preliminary, Resulted 04/19/18 Urine Culture Result 1 (AUBRIE) - Preliminary, Resulted Medications Current Medications Sodium Chloride 1,000 ml @ 1,000 mls/hr 1X ONCE IV Last administered on at 19:30; Start 04/19/18 at 18:45; Stop 04/19/18 at 19:44; Status DC Fentanyl Citrate (Fentanyl 2ml Vial) 50 mcg 1X ONCE IV Last administered on at 19:32; Start 04/19/18 at 18:45; Stop 04/19/18 at 18:46; Status DC Ceftriaxone Sodium (Rocephin) 1 gm 1X ONCE IVP Last administered on 04/19/18at 19:44; Start 04/19/18 at 19:30; Stop 04/19/18 at 19:31; Status DC Morphine Sulfate (Morphine Sulfate) 8 mg 1X ONCE IV Last administered on at 20:32; Start 04/19/18 at 20:00; Stop 04/19/18 at 20:01; Status DC Ondansetron HCl (Zofran) 4 mg PRN Q8HRS PRN IV NAUSEA/VOMITING Last administered on 04/20/18at 16:11; Start 04/19/18 at 20:30; Stop 04/20/18 at 20:29 ; Status DC Morphine Sulfate (Morphine Sulfate) 8 mg PRN Q4HRS PRN IV PAIN; Start 04/19/18 at 20:30; Stop 04/19/18 at 22:00; Status DC Sodium Chloride 1,000 ml @ 125 mls/hr 1X ONCE IV Last administered on 20:30; Start 04/19/18 at 20:30; Stop 04/20/18 at 04:29; Status DC Folic Acid (Folic Acid) 1 mg DAILY PO Last administered on 04/21/18 08:56; Start 04/20/18 at 09:00 Nitrofurantoin Macrocrystals (Macrobid) 100 mg BID PO Last administered on 04/21 08:56; Start 04/20/18 at 09:00; Stop 04/21/18 at 16:00; Status DC Multivit/ Folic Acid/Iron (Multivitamin ) 1 tab DAILY PO Last administered on 04/21/18 08:56; Start 04/20/18 at 09:00 Acetaminophen/ Hydrocodone Bitart (Lortab 10/325) 1 tab PRN Q6HRS PRN PO PAIN Last administered on 04/21/18 23:01; Start 04/19/18 at 22:00 Morphine Sulfate (Ms Contin) 15 mg 1X ONCE PO Last administered on 04/19/18 22:15; Start 04/19/18 at 22:00; Stop 04/19/18 at 22:03; Status DC Morphine Sulfate (Morphine Sulfate) 10 mg PRN Q4HRS PRN IV PAIN Last administered on 04/22/18 06:08; Start 04/19/18 at 22:00 Sodium Chloride 1,000 ml @ 150 mls/hr Q6H40M IV Last administered on 05:48; Start 04/19/18 at 22:15 Zolpidem Tartrate (Ambien) 5 mg PRN QHS PRN PO INSOMNIA Last administered on 23:01; Start 04/20/18 at 00:45 Enoxaparin Sodium (Lovenox 40mg Syringe) 40 mg Q24H SQ Last administered on 08:56; Start 04/20/18 at 10:00 Meclizine HCl (Antivert) 25 mg PRN Q6HRS PRN PO DIZZINESS Last administered on 2/22/19at 20:39; Start 04/20/18 at 20:30 Promethazine HCl (Phenergan) 12.5 mg PRN Q6HRS PRN PO NAUSEA/VOMITING Last administered on 04/20/18 20:39; Start 04/20/18 at 20:30 Ceftriaxone Sodium (Rocephin) 1 gm Q24H IVP Last administered on 04/21/18 10: 04; Start 04/21/18 at 10:00 Fluconazole (Diflucan) 150 mg 1X ONCE PO Last administered on 04/21/18 13:53 ; Start 04/21/18 at 13:45; Stop 04/21/18 at 13:46; Status DC Active Scripts Active Cephalexin 500 Mg Tablet 1 Tab PO BID Bactrim Ds Tablet (Sulfamethoxazole/Trimethoprim) 1 Each Tablet 1 Tab PO BID Acyclovir 800 Mg Tablet 1 Tab PO 5XDAY Flagyl (Metronidazole) 500 Mg Tablet 1 Tab PO BID Macrobid 100 Mg Capsule (Nitrofurantoin Monohyd/M-Cryst) 100 Mg Capsule 1 Cap PO BID Plus Iron Tablet (Pnv With Ca,No.72/Iron,Carb/Fa) 1 Each Tablet 1 Tab PO DAILY Cephalexin 500 Mg Tablet 1 Tab PO BID Folic Acid 1 Mg Tablet 1 Tab PO DAILY Reported Hydrocodone-Apap 10-325 (Hydrocodone Bit/Acetaminophen) 1 Each Tablet 1 Tab PO PRN Q4-6HRS PRN No Known Medications Prior To Admisstion (Info) Each 1 Each No Known Medications Prior To Admisstion (Info) Each 1 Each Vitals/I & O Vital Sign - Last 24 Hours 04/21/18 04/21/18 04/21/18 04/21/18 08:57 11:25 15:00 16:32 Temp 98.5 98.1 98.5 98.1 Pulse 67 95 Resp 14 18 B/P (MAP) 109/53 (71) 114/67 (83) Pulse Ox 95 97 O2 Delivery Room Air Room Air Room Air Room Air 04/21/18 04/21/18 04/21/18 04/21/18 19:00 20:00 20:39 22:35 Temp 99.6 98.5 99.6 98.5 Pulse 88 114 Resp 19 18 18 B/P (MAP) 117/80 (92) 126/83 (97) Pulse Ox 99 99 98 O2 Delivery Room Air Room Air Room Air Room Air 04/21/18 04/22/18 04/22/18 04/22/18 23:01 00:48 02:48 06:08 Temp 98.7 98.7 Pulse 83 Resp 16 15 16 17 B/P (MAP) 96/61 (73) Pulse Ox 98 98 95 95 O2 Delivery Room Air Room Air Room Air Room Air 04/22/18 04/22/18 06:40 07:00 Temp 99.4 99.4 Pulse 92 Resp 16 16 B/P (MAP) 108/58 (75) Pulse Ox 95 95 O2 Delivery Room Air Room Air Intake and Output 04/21/18 04/21/18 04/22/18 15:00 23:00 07:00 Intake Total 1000 ml Output Total 900 ml 1000 ml Balance -900 ml 0 ml ABDON GARCIA MD Apr 22, 2018 08:26
[2018-04-22] MEDS: PRENATAL MULTIVITAMIN TABLET. PO SCH (08:39)
[2018-04-22] MEDS: FOLIC ACID 1 MG TABLET. PO SCH (08:39)
[2018-04-22] MEDS: HYDROcodone/APAP 10/325 1 TAB TABLET PO PRN ×2 (08:41→17:48)
[2018-04-22 08:51] LABS: ALBUMIN 3.1 g/dL (3.4-5.0); ALBUMIN/GLOBULIN RATIO 0.8 (1.0-1.7); CALCIUM 8.4 mg/dL (8.5-10.1); CREATININE 0.5 mg/dL (0.6-1.0); GFR 188.5; POTASSIUM 4.1 mmol/L (3.5-5.1); TOTAL BILIRUBIN 2.6 mg/dL (0.2-1.0); TOTAL PROTEIN 6.8 g/dL (6.4-8.2)
[2018-04-22] MEDS ORDERED: POLYETHYLENE GLYCOL 3350 17 GM PACKET. PO PRN (09:00)
[2018-04-22] MEDS ORDERED: SENNOSIDES/DOCUSATE 8.6/50MG TABLET. PO PRN (09:00)
[2018-04-22] MEDS ORDERED: MAGNESIUM CITRATE 296 ML SOLUTION. PO ONE (09:00)
[2018-04-22] MEDS: PSYLLIUM HUSK (SUGAR FREE) 1 PKT PACKET PO SCH (09:40)
[2018-04-22] MEDS: ENOXAPARIN 40 MG/0.4 ML SYRINGE. SQ SCH (10:29)
[2018-04-22] MEDS: HYDROmorphone 2 MG/ML VIAL IV PRN ×3 (10:31→20:22)
[2018-04-22] MEDS: cefTRIAXone IV Push 1 GM VIAL. IVP SCH (10:31)
[2018-04-22 11:00] VITALS: BP 117/61
[2018-04-22 14:26] LABS: BASO # 0.2 x10^3/uL (0.0-0.2); BASO % 1 % (0-3); EOS # 0.4 x10^3/uL (0.0-0.7); EOS % 3 % (0-3); HEMATOCRIT 22.4 % (36.0-47.0); HEMOGLOBIN 7.9 g/dL (12.0-15.5); LYMPH # 6.6 x10^3/uL (1.0-4.8); LYMPH % 51 % (24-48); MEAN CORPUSCULAR HEMOGLOBIN 30 pg (25-35); MEAN CORPUSCULAR HGB CONC 35 g/dL (31-37); MEAN CORPUSCULAR VOLUME 86 fL (79-100); MONO # 0.6 x10^3/uL (0.0-1.1); MONO % 5 % (0-9); NEUT # 5.2 x10^3uL (1.8-7.7); NEUT % 40 % (31-73); PLATELET COUNT 478 x10^3/uL (140-400); RED CELL DISTRIBUTION WIDTH 19.3 % (11.5-14.5)
[2018-04-22 15:00] VITALS: BP 113/70
[2018-04-22 15:05] LABS: PLT ESTIMATE INCREASED (ADEQUATE); POLYCHROMASIA MOD; TARGET CELLS MOD
[2018-04-22 15:06] LABS: ANISOCYTOSIS SLIGHT; SICKLE CELLS MANY
[2018-04-22] MEDS ORDERED: ONDANSETRON PF 4 MG/2 ML VIAL. IV PRN (15:15)
[2018-04-22 19:00] VITALS: BP 110/65
[2018-04-22] MEDS: MECLIZINE HCL 12.5 MG TABLET. PO PRN (20:21)
[2018-04-22] MEDS: LACTOBACILLUS RHAMNOSUS GG 1 CAPSULE. PO SCH (20:21)
[2018-04-22] MEDS: ZOLPIDEM 5 MG TABLET. PO PRN (20:21)
[2018-04-22] MEDS: PROMETHAZINE 12.5 MG TABLET. PO PRN (20:21)
[2018-04-22 23:00] VITALS: BP 104/69
[2018-04-23 03:00] VITALS: BP 99/57
[2018-04-23] MEDS: IV NORMAL SALINE 1000ML BAG 1,000 ML IV SCH ×3 (03:17→20:14)
[2018-04-23] MEDS: HYDROmorphone 2 MG/ML VIAL IV PRN ×4 (03:20→23:56)
[2018-04-23 04:37] LABS: BASO # 0.1 x10^3/uL (0.0-0.2); BASO % 1 % (0-3); EOS # 0.5 x10^3/uL (0.0-0.7); EOS % 5 % (0-3); HEMATOCRIT 21.2 % (36.0-47.0); HEMOGLOBIN 7.4 g/dL (12.0-15.5); LYMPH # 3.7 x10^3/uL (1.0-4.8); LYMPH % 34 % (24-48); MEAN CORPUSCULAR HEMOGLOBIN 30 pg (25-35); MEAN CORPUSCULAR HGB CONC 35 g/dL (31-37); MEAN CORPUSCULAR VOLUME 87 fL (79-100); MONO # 0.6 x10^3/uL (0.0-1.1); MONO % 5 % (0-9); NEUT # 6.1 x10^3uL (1.8-7.7); NEUT % 55 % (31-73); PLATELET COUNT 405 x10^3/uL (140-400); RED BLOOD COUNT 2.43 x10^6/uL (3.50-5.40); RED CELL DISTRIBUTION WIDTH 19.6 % (11.5-14.5); WHITE BLOOD COUNT 11.1 x10^3/uL (4.0-11.0)
[2018-04-23 04:52] LABS: ALBUMIN 3.2 g/dL (3.4-5.0); ALBUMIN/GLOBULIN RATIO 0.8 (1.0-1.7); CALCIUM 8.5 mg/dL (8.5-10.1); CREATININE 0.6 mg/dL (0.6-1.0); GFR 152.7; TOTAL BILIRUBIN 2.4 mg/dL (0.2-1.0)
[2018-04-23 07:00] VITALS: BP 106/38
[2018-04-23] MEDS: PSYLLIUM HUSK (SUGAR FREE) 1 PKT PACKET PO SCH (09:00)
--- NOTE | 2018-04-23 09:22 | PDOC ---
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 who has done well in the past in general, but is admitted with upper tract UTI with history of frequent UTIs and right renal collecting abnormality with possible ureteral reflux Sickle cell crisis: On pain medications which are helping, IV fluids, on folic acid, T bili is decreasing UTI: On ceftriaxone now, with history of frequent UTIs, urology has recommended 2 weeks of current treatment followed by 3 months of suppressive Bactrim and further follow-up after dc DVT prophylaxis: Lovenox Headache: Recommend a trial of caffeine Elevated ferritin in May 2017: On recheck here the ferritin is normal, though iron sat of 48%, does not need iron supplementation from our standpoint Thank you kindly and please do not hesitate to call with questions. OBJECTIVE Vital Signs Vital Signs Date Time Temp Pulse Resp B/P (MAP) Pulse Ox O2 Delivery O2 Flow Rate FiO2 04/23/18 07:00 99.5 88 18 106/38 (60) 96 Room Air 99.5 04/23/18 06:02 Room Air 04/23/18 03:20 Room Air 04/23/18 03:00 99.6 91 20 99/57 (71) 92 Room Air 99.6 04/22/18 23:00 98.1 85 20 104/69 (81) 91 Room Air 98.1 04/22/18 20:22 Room Air 04/22/18 20:00 Room Air 04/22/18 19:14 Room Air 04/22/18 19:00 98.9 75 20 110/65 (80) 92 Room Air 98.9 04/22/18 17:48 Room Air 04/22/18 15:13 Room Air 04/22/18 15:00 97.7 77 16 113/70 (84) 98 Room Air 97.7 04/22/18 11:00 98.7 81 18 117/61 (79) 95 Room Air 98.7 I & O Intake and Output 04/23/18 06:59 Intake Total 2860 ml Balance 2860 ml Intake Oral 1860 ml IV Total 1000 ml # Voids 8 COMMENT Lab Laboratory Tests Test 04/22/18 14:15 04/23/18 04:10 White Blood Count 13.0 x10^3/uL (4.0-11.0) 11.1 x10^3/uL (4.0-11.0) Red Blood Count 2.60 x10^6/uL (3.50-5.40) 2.43 x10^6/uL (3.50-5.40) Hemoglobin 7.9 g/dL (12.0-15.5) 7.4 g/dL (12.0-15.5) Hematocrit 22.4 % (36.0-47.0) 21.2 % (36.0-47.0) Mean Corpuscular Volume 86 fL (79-100) 87 fL (79-100) Mean Corpuscular Hemoglobin 30 pg (25-35) 30 pg (25-35) Mean Corpuscular Hemoglobin Concent 35 g/dL (31-37) 35 g/dL (31-37) Red Cell Distribution Width 19.3 % (11.5-14.5) 19.6 % (11.5-14.5) Platelet Count 478 x10^3/uL (140-400) 405 x10^3/uL (140-400) Neutrophils (%) (Auto) 40 % (31-73) 55 % (31-73) Lymphocytes (%) (Auto) 51 % (24-48) 34 % (24-48) Monocytes (%) (Auto) 5 % (0-9) 5 % (0-9) Eosinophils (%) (Auto) 3 % (0-3) 5 % (0-3) Basophils (%) (Auto) 1 % (0-3) 1 % (0-3) Neutrophils # (Auto) 5.2 x10^3uL (1.8-7.7) 6.1 x10^3uL (1.8-7.7) Lymphocytes # (Auto) 6.6 x10^3/uL (1.0-4.8) 3.7 x10^3/uL (1.0-4.8) Monocytes # (Auto) 0.6 x10^3/uL (0.0-1.1) 0.6 x10^3/uL (0.0-1.1) Eosinophils # (Auto) 0.4 x10^3/uL (0.0-0.7) 0.5 x10^3/uL (0.0-0.7) Basophils # (Auto) 0.2 x10^3/uL (0.0-0.2) 0.1 x10^3/uL (0.0-0.2) Platelet Estimate Increased (ADEQUATE) Polychromasia Mod Anisocytosis Slight Sickle Cells Many Target Cells Mod Sodium Level 141 mmol/L (136-145) Potassium Level 4.0 mmol/L (3.5-5.1) Chloride Level 105 mmol/L (98-107) Carbon Dioxide Level 29 mmol/L (21-32) Anion Gap 7 (6-14) Blood Urea Nitrogen 4 mg/dL (7-20) Creatinine 0.6 mg/dL (0.6-1.0) Estimated GFR (Cockcroft-Gault) 152.7 BUN/Creatinine Ratio 7 (6-20) Glucose Level 86 mg/dL (70-99) Calcium Level 8.5 mg/dL (8.5-10.1) Total Bilirubin 2.4 mg/dL (0.2-1.0) Aspartate Amino Transf (AST/SGOT) 32 U/L (15-37) Alanine Aminotransferase (ALT/SGPT) 16 U/L (14-59) Alkaline Phosphatase 67 U/L (46-116) Total Protein 7.0 g/dL (6.4-8.2) Albumin 3.2 g/dL (3.4-5.0) Albumin/Globulin Ratio 0.8 (1.0-1.7) AUDREY MAGAÑA MD Apr 23, 2018 09:22
[2018-04-23] MEDS: PRENATAL MULTIVITAMIN TABLET. PO SCH (09:44)
[2018-04-23] MEDS: FOLIC ACID 1 MG TABLET. PO SCH (09:44)
[2018-04-23] MEDS: LACTOBACILLUS RHAMNOSUS GG 1 CAPSULE. PO SCH ×2 (09:44→21:29)
[2018-04-23] MEDS: ENOXAPARIN 40 MG/0.4 ML SYRINGE. SQ SCH (09:46)
[2018-04-23 10:49] VITALS: BP 109/57
[2018-04-23] MEDS: cefTRIAXone IV Push 1 GM VIAL. IVP SCH (12:06)
--- NOTE | 2018-04-23 13:28 | PDOC ---
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 based on insurance restrictions will need referral to [facility] Sickle cell disease (persistent hemoglobin) - needs a hook up driver in . Currently starting a crisis, will keep on her pain regimen. H/o trichomonas during - treated 11months post- - good recovery H/O PE - s/p 6 months oral anticoagulation. Will place on lovenox PPX Gallstones - asymptomatic, common in SCD patients, monitor Hemorrhoids - with GI bleed 05/2017. Monitor Cardiomegaly - possible cardiomyopathy / SCD, mild murmur heard. Has some pulm congestion, possible pulm HTN, no problems here currently, should be monitored outpatient Frequent UTIs - urology consults FEN - General PPX - lovenox FULL CODE Inpatient for UTI causing a sickle cell crisis,likely at least 2-3 days inpatient History of Present Illness History of Present Illness 22 year old female with a PMH of sickle cell disease (persistent hemoglobin) who presents with one week of bilateral low abdominal pain that radiates up around her back. There is no associated nausea, vomiting, diarrhea. She has not found anything that makes it better or worse. Additionally she has a history of recurring UTIs and complains of dysuria, frequency, and vaginal itching for the past two weeks. Denies discharge. In regards to her sickle cell she thinks her last pain crisis was 8-10 months ago. Patient however reports diffuse sharp body pains that she says are indicative of the start of a pain crisis. She is up to date on her immunizations and does not take hydroxyurea. She has history of gallstones and denies any abdominal surgery. She has one child and had a PE after giving in April of 2017 but denies recurrence of blood clot. Reportedly she stopped Xarelto several months ago. Currently she denies chest pain and shortness of breath. 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 Mild fullness of the inferior moiety and associated ureter may be secondary to vesicoureteral reflux. [place] lightheaded and a little confused 04/21 . She is very constipated. Seen by urology, offered uretoscopy. Seen by Heme, on lovenox for ppx. Plan: 2 weeks of gu specific abx. suppressive TMP 100mg for 3mos after that. [facility] and [facility] as OP or upon discharge. IV rocephin for pyelo on right Bowel regimen Change morphine to dilaudid IV fluids for sickle crisis Pain control Consider cystoscopy-uretoscopy per urology if still in house tomorrow , otherwise will need f/u at [facility] in the very near future. notified urology again Cont inpatient likely for at least another 1-2 days Vitals Vitals Vital Signs Date Time Temp Pulse Resp B/P (MAP) Pulse Ox O2 Delivery O2 Flow Rate FiO2 04/23/18 10:49 98.8 93 18 109/57 (74) 93 Room Air 98.8 Physical Exam Physical Exam GENERAL: NAD, Alert HEENT: PERRL, OC/OP NECK: Supple, no JVD, no LN LUNGS: Clear HEART: S1S2, no gallop, no murmur ABD: Soft, NT, no organomegaly, no rebound EXT: No edema, no cyanosis DIVERSIFIED CROPS I FARMWORKER: Alert, oriented x 3, no focal neurologic deficit SKIN: No rash IV: ok cn 2-12 grossly intact General: Alert, Oriented X3, Cooperative, No acute distress, mild distress Heart: Regular rate, Normal S1, Normal S2, No murmurs Lungs: Clear Abdomen: Normal bowel sounds, Soft, No hepatosplenomegaly, No masses, Other ( Vasiliy LQ and right flank) Extremities: No clubbing, No cyanosis, No edema, Normal pulses, No tenderness/ swelling Skin: No rashes, No breakdown, No significant lesion Labs LABS No suspicious hepatic masses are identified. Spleen, bilateral adrenal glands, and pancreas are normal in appearance. Gallbladder is present without adjacent inflammatory changes. The abdominal aorta is normal in course and caliber. There are no pathologically enlarged lymph nodes in the abdomen and pelvis. There is no abdominal free fluid. There is no free intraperitoneal air. Moderate amount of stool is noted throughout the colon. Small and large bowel are normal in caliber. There is no evidence for bowel obstruction. There are no pericolonic inflammatory changes. A normal, nondilated appendix is visualized without adjacent inflammatory changes. 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 Mild fullness of the inferior moiety and associated ureter may be secondary to vesicoureteral reflux. There is no suspicious renal mass within the limitations of a noncontrast examination. There is no significant hydronephrosis. There are no calculi within the kidneys, ureters or urinary bladder. IUD is present. Uterus and adnexa are normal in appearance by CT. Urinary bladder is within normal limits given degree of distention. No suspicious osseous abnormality is identified. Impression: Minimal tree-in-bud nodular airspace disease is identified in the left lower lobe which may represent a bronchiolitis of infectious/inflammatory etiology. 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 Mild fullness of the inferior moiety and associated ureter may be secondary to vesicoureteral reflux. Appendix is normal in appearance. IUD is present. Electronically signed by: Gricel Valdez MD (04/19/2018 7:17 PM) [facility] Laboratory Tests Test 04/22/18 14:15 04/23/18 04:10 White Blood Count 13.0 x10^3/uL (4.0-11.0) 11.1 x10^3/uL (4.0-11.0) Red Blood Count 2.60 x10^6/uL (3.50-5.40) 2.43 x10^6/uL (3.50-5.40) Hemoglobin 7.9 g/dL (12.0-15.5) 7.4 g/dL (12.0-15.5) Hematocrit 22.4 % (36.0-47.0) 21.2 % (36.0-47.0) Mean Corpuscular Volume 86 fL (79-100) 87 fL (79-100) Mean Corpuscular Hemoglobin 30 pg (25-35) 30 pg (25-35) Mean Corpuscular Hemoglobin Concent 35 g/dL (31-37) 35 g/dL (31-37) Red Cell Distribution Width 19.3 % (11.5-14.5) 19.6 % (11.5-14.5) Platelet Count 478 x10^3/uL (140-400) 405 x10^3/uL (140-400) Neutrophils (%) (Auto) 40 % (31-73) 55 % (31-73) Lymphocytes (%) (Auto) 51 % (24-48) 34 % (24-48) Monocytes (%) (Auto) 5 % (0-9) 5 % (0-9) Eosinophils (%) (Auto) 3 % (0-3) 5 % (0-3) Basophils (%) (Auto) 1 % (0-3) 1 % (0-3) Neutrophils # (Auto) 5.2 x10^3uL (1.8-7.7) 6.1 x10^3uL (1.8-7.7) Lymphocytes # (Auto) 6.6 x10^3/uL (1.0-4.8) 3.7 x10^3/uL (1.0-4.8) Monocytes # (Auto) 0.6 x10^3/uL (0.0-1.1) 0.6 x10^3/uL (0.0-1.1) Eosinophils # (Auto) 0.4 x10^3/uL (0.0-0.7) 0.5 x10^3/uL (0.0-0.7) Basophils # (Auto) 0.2 x10^3/uL (0.0-0.2) 0.1 x10^3/uL (0.0-0.2) Platelet Estimate Increased (ADEQUATE) Polychromasia Mod Anisocytosis Slight Sickle Cells Many Target Cells Mod Sodium Level 141 mmol/L (136-145) Potassium Level 4.0 mmol/L (3.5-5.1) Chloride Level 105 mmol/L (98-107) Carbon Dioxide Level 29 mmol/L (21-32) Anion Gap 7 (6-14) Blood Urea Nitrogen 4 mg/dL (7-20) Creatinine 0.6 mg/dL (0.6-1.0) Estimated GFR (Cockcroft-Gault) 152.7 BUN/Creatinine Ratio 7 (6-20) Glucose Level 86 mg/dL (70-99) Calcium Level 8.5 mg/dL (8.5-10.1) Total Bilirubin 2.4 mg/dL (0.2-1.0) Aspartate Amino Transf (AST/SGOT) 32 U/L (15-37) Alanine Aminotransferase (ALT/SGPT) 16 U/L (14-59) Alkaline Phosphatase 67 U/L (46-116) Total Protein 7.0 g/dL (6.4-8.2) Albumin 3.2 g/dL (3.4-5.0) Albumin/Globulin Ratio 0.8 (1.0-1.7) Comment Review of Relevant I have reviewed the following items samanta (where applicable) has been applied. Labs Laboratory Tests Test 04/22/18 07:10 04/22/18 14:15 04/23/18 04:10 Sodium Level 141 mmol/L (136-145) 141 mmol/L (136-145) Potassium Level 4.1 mmol/L (3.5-5.1) 4.0 mmol/L (3.5-5.1) Chloride Level 106 mmol/L (98-107) 105 mmol/L (98-107) Carbon Dioxide Level 21 mmol/L (21-32) 29 mmol/L (21-32) Anion Gap 14 (6-14) 7 (6-14) Blood Urea Nitrogen 4 mg/dL (7-20) 4 mg/dL (7-20) Creatinine 0.5 mg/dL (0.6-1.0) 0.6 mg/dL (0.6-1.0) Estimated GFR (Cockcroft-Gault) 188.5 152.7 BUN/Creatinine Ratio 8 (6-20) 7 (6-20) Glucose Level 83 mg/dL (70-99) 86 mg/dL (70-99) Calcium Level 8.4 mg/dL (8.5-10.1) 8.5 mg/dL (8.5-10.1) Total Bilirubin 2.6 mg/dL (0.2-1.0) 2.4 mg/dL (0.2-1.0) Aspartate Amino Transf (AST/SGOT) 32 U/L (15-37) 32 U/L (15-37) Alanine Aminotransferase (ALT/SGPT) 15 U/L (14-59) 16 U/L (14-59) Alkaline Phosphatase 68 U/L (46-116) 67 U/L (46-116) Total Protein 6.8 g/dL (6.4-8.2) 7.0 g/dL (6.4-8.2) Albumin 3.1 g/dL (3.4-5.0) 3.2 g/dL (3.4-5.0) Albumin/Globulin Ratio 0.8 (1.0-1.7) 0.8 (1.0-1.7) White Blood Count 13.0 x10^3/uL (4.0-11.0) 11.1 x10^3/uL (4.0-11.0) Red Blood Count 2.60 x10^6/uL (3.50-5.40) 2.43 x10^6/uL (3.50-5.40) Hemoglobin 7.9 g/dL (12.0-15.5) 7.4 g/dL (12.0-15.5) Hematocrit 22.4 % (36.0-47.0) 21.2 % (36.0-47.0) Mean Corpuscular Volume 86 fL (79-100) 87 fL (79-100) Mean Corpuscular Hemoglobin 30 pg (25-35) 30 pg (25-35) Mean Corpuscular Hemoglobin Concent 35 g/dL (31-37) 35 g/dL (31-37) Red Cell Distribution Width 19.3 % (11.5-14.5) 19.6 % (11.5-14.5) Platelet Count 478 x10^3/uL (140-400) 405 x10^3/uL (140-400) Neutrophils (%) (Auto) 40 % (31-73) 55 % (31-73) Lymphocytes (%) (Auto) 51 % (24-48) 34 % (24-48) Monocytes (%) (Auto) 5 % (0-9) 5 % (0-9) Eosinophils (%) (Auto) 3 % (0-3) 5 % (0-3) Basophils (%) (Auto) 1 % (0-3) 1 % (0-3) Neutrophils # (Auto) 5.2 x10^3uL (1.8-7.7) 6.1 x10^3uL (1.8-7.7) Lymphocytes # (Auto) 6.6 x10^3/uL (1.0-4.8) 3.7 x10^3/uL (1.0-4.8) Monocytes # (Auto) 0.6 x10^3/uL (0.0-1.1) 0.6 x10^3/uL (0.0-1.1) Eosinophils # (Auto) 0.4 x10^3/uL (0.0-0.7) 0.5 x10^3/uL (0.0-0.7) Basophils # (Auto) 0.2 x10^3/uL (0.0-0.2) 0.1 x10^3/uL (0.0-0.2) Platelet Estimate Increased (ADEQUATE) Polychromasia Mod Anisocytosis Slight Sickle Cells Many Target Cells Mod Laboratory Tests Test 04/22/18 14:15 04/23/18 04:10 White Blood Count 13.0 x10^3/uL (4.0-11.0) 11.1 x10^3/uL (4.0-11.0) Red Blood Count 2.60 x10^6/uL (3.50-5.40) 2.43 x10^6/uL (3.50-5.40) Hemoglobin 7.9 g/dL (12.0-15.5) 7.4 g/dL (12.0-15.5) Hematocrit 22.4 % (36.0-47.0) 21.2 % (36.0-47.0) Mean Corpuscular Volume 86 fL (79-100) 87 fL (79-100) Mean Corpuscular Hemoglobin 30 pg (25-35) 30 pg (25-35) Mean Corpuscular Hemoglobin Concent 35 g/dL (31-37) 35 g/dL (31-37) Red Cell Distribution Width 19.3 % (11.5-14.5) 19.6 % (11.5-14.5) Platelet Count 478 x10^3/uL (140-400) 405 x10^3/uL (140-400) Neutrophils (%) (Auto) 40 % (31-73) 55 % (31-73) Lymphocytes (%) (Auto) 51 % (24-48) 34 % (24-48) Monocytes (%) (Auto) 5 % (0-9) 5 % (0-9) Eosinophils (%) (Auto) 3 % (0-3) 5 % (0-3) Basophils (%) (Auto) 1 % (0-3) 1 % (0-3) Neutrophils # (Auto) 5.2 x10^3uL (1.8-7.7) 6.1 x10^3uL (1.8-7.7) Lymphocytes # (Auto) 6.6 x10^3/uL (1.0-4.8) 3.7 x10^3/uL (1.0-4.8) Monocytes # (Auto) 0.6 x10^3/uL (0.0-1.1) 0.6 x10^3/uL (0.0-1.1) Eosinophils # (Auto) 0.4 x10^3/uL (0.0-0.7) 0.5 x10^3/uL (0.0-0.7) Basophils # (Auto) 0.2 x10^3/uL (0.0-0.2) 0.1 x10^3/uL (0.0-0.2) Platelet Estimate Increased (ADEQUATE) Polychromasia Mod Anisocytosis Slight Sickle Cells Many Target Cells Mod Sodium Level 141 mmol/L (136-145) Potassium Level 4.0 mmol/L (3.5-5.1) Chloride Level 105 mmol/L (98-107) Carbon Dioxide Level 29 mmol/L (21-32) Anion Gap 7 (6-14) Blood Urea Nitrogen 4 mg/dL (7-20) Creatinine 0.6 mg/dL (0.6-1.0) Estimated GFR (Cockcroft-Gault) 152.7 BUN/Creatinine Ratio 7 (6-20) Glucose Level 86 mg/dL (70-99) Calcium Level 8.5 mg/dL (8.5-10.1) Total Bilirubin 2.4 mg/dL (0.2-1.0) Aspartate Amino Transf (AST/SGOT) 32 U/L (15-37) Alanine Aminotransferase (ALT/SGPT) 16 U/L (14-59) Alkaline Phosphatase 67 U/L (46-116) Total Protein 7.0 g/dL (6.4-8.2) Albumin 3.2 g/dL (3.4-5.0) Albumin/Globulin Ratio 0.8 (1.0-1.7) Microbiology 04/19/18 Urine Culture - Final, Complete 04/19/18 Urine Culture Result 1 (AUBRIE) - Final, Complete 04/19/18 Antimicrobic Susceptibility - Final, Complete Medications Current Medications Sodium Chloride 1,000 ml @ 1,000 mls/hr 1X ONCE IV Last administered on at 19:30; Start 04/19/18 at 18:45; Stop 04/19/18 at 19:44; Status DC Fentanyl Citrate (Fentanyl 2ml Vial) 50 mcg 1X ONCE IV Last administered on at 19:32; Start 04/19/18 at 18:45; Stop 04/19/18 at 18:46; Status DC Ceftriaxone Sodium (Rocephin) 1 gm 1X ONCE IVP Last administered on 04/19/18at 19:44; Start 04/19/18 at 19:30; Stop 04/19/18 at 19:31; Status DC Morphine Sulfate (Morphine Sulfate) 8 mg 1X ONCE IV Last administered on at 20:32; Start 04/19/18 at 20:00; Stop 04/19/18 at 20:01; Status DC Ondansetron HCl (Zofran) 4 mg PRN Q8HRS PRN IV NAUSEA/VOMITING Last administered on 04/20/18at 16:11; Start 04/19/18 at 20:30; Stop 04/20/18 at 20:29 ; Status DC Morphine Sulfate (Morphine Sulfate) 8 mg PRN Q4HRS PRN IV PAIN; Start 04/19/18 at 20:30; Stop 04/19/18 at 22:00; Status DC Sodium Chloride 1,000 ml @ 125 mls/hr 1X ONCE IV Last administered on at 20:30; Start 04/19/18 at 20:30; Stop 04/20/18 at 04:29; Status DC Folic Acid (Folic Acid) 1 mg DAILY PO Last administered on 04/23/18 09:44; Start 04/20/18 at 09:00 Nitrofurantoin Macrocrystals (Macrobid) 100 mg BID PO Last administered on 04/21 08:56; Start 04/20/18 at 09:00; Stop 04/21/18 at 16:00; Status DC Multivit/ Folic Acid/Iron (Multivitamin ) 1 tab DAILY PO Last administered on 04/23/18 09:44; Start 04/20/18 at 09:00 Acetaminophen/ Hydrocodone Bitart (Lortab 10/325) 1 tab PRN Q6HRS PRN PO PAIN Last administered on 04/22/18 17:48; Start 04/19/18 at 22:00 Morphine Sulfate (Ms Contin) 15 mg 1X ONCE PO Last administered on 04/19/18 22:15; Start 04/19/18 at 22:00; Stop 04/19/18 at 22:03; Status DC Morphine Sulfate (Morphine Sulfate) 10 mg PRN Q4HRS PRN IV PAIN Last administered on 04/22/18 06:08; Start 04/19/18 at 22:00; Stop 04/22/18 at 09:00 ; Status DC Sodium Chloride 1,000 ml @ 150 mls/hr Q6H40M IV Last administered on 09:47; Start 04/19/18 at 22:15 Zolpidem Tartrate (Ambien) 5 mg PRN QHS PRN PO INSOMNIA Last administered on 20:21; Start 04/20/18 at 00:45 Enoxaparin Sodium (Lovenox 40mg Syringe) 40 mg Q24H SQ Last administered on 09:46; Start 04/20/18 at 10:00 Meclizine HCl (Antivert) 25 mg PRN Q6HRS PRN PO DIZZINESS Last administered on 04/22/18 20:21; Start 04/20/18 at 20:30 Promethazine HCl (Phenergan) 12.5 mg PRN Q6HRS PRN PO NAUSEA/VOMITING Last administered on 04/22/18 20:21; Start 04/20/18 at 20:30 Ceftriaxone Sodium (Rocephin) 1 gm Q24H IVP Last administered on 04/23/18 12: 06; Start 04/21/18 at 10:00 Fluconazole (Diflucan) 150 mg 1X ONCE PO Last administered on 04/21/18 13:53 ; Start 04/21/18 at 13:45; Stop 04/21/18 at 13:46; Status DC Hydromorphone HCl (Dilaudid) 2 mg PRN Q4HRS PRN IV PAIN Last administered on 09:58; Start 04/22/18 at 09:00 Psyllium Hydrophilic Mucilloid (Metamucil Fiber Packet) 1 pkt DAILY PO Last administered on 04/23/18at 09:00; Start 04/22/18 at 09:00 Polyethylene Glycol (miraLAX PACKET) 17 gm PRN BID PRN PO CONSTIPATION; Start 04/22/18 at 09:00 Senna/Docusate Sodium (Senna Plus) 2 tab PRN BID PRN PO CONSTIPATION; Start at 09:00 Magnesium Citrate (Citroma) 296 ml 1X ONCE PO Last administered on 04/22/18 09:40; Start 04/22/18 at 09:00; Stop 04/22/18 at 09:02; Status DC Ondansetron HCl (Zofran) 4 mg PRN Q6HRS PRN IV NAUSEA/VOMITING Last administered on 04/22/18at 15:13; Start 04/22/18 at 15:15 Lactobacillus Rhamnosus (Culturelle) 1 cap BID PO Last administered on at 09:44; Start 04/22/18 at 21:00 Active Scripts Active Cephalexin 500 Mg Tablet 1 Tab PO BID Bactrim Ds Tablet (Sulfamethoxazole/Trimethoprim) 1 Each Tablet 1 Tab PO BID Acyclovir 800 Mg Tablet 1 Tab PO 5XDAY Flagyl (Metronidazole) 500 Mg Tablet 1 Tab PO BID Macrobid 100 Mg Capsule (Nitrofurantoin Monohyd/M-Cryst) 100 Mg Capsule 1 Cap PO BID Plus Iron Tablet (Pnv With Ca,No.72/Iron,Carb/Fa) 1 Each Tablet 1 Tab PO DAILY Cephalexin 500 Mg Tablet 1 Tab PO BID Folic Acid 1 Mg Tablet 1 Tab PO DAILY Reported Hydrocodone-Apap 10-325 (Hydrocodone Bit/Acetaminophen) 1 Each Tablet 1 Tab PO PRN Q4-6HRS PRN No Known Medications Prior To Admisstion (Info) Each 1 Each No Known Medications Prior To Admisstion (Info) Each 1 Each Vitals/I & O Vital Sign - Last 24 Hours 04/22/18 04/22/18 04/22/18 04/22/18 15:00 15:13 17:48 19:00 Temp 97.7 98.9 97.7 98.9 Pulse 77 75 Resp 16 20 B/P (MAP) 113/70 (84) 110/65 (80) Pulse Ox 98 92 O2 Delivery Room Air Room Air Room Air Room Air 04/22/18 04/22/18 04/22/18 04/22/18 19:14 20:00 20:22 23:00 Temp 98.1 98.1 Pulse 85 Resp 20 B/P (MAP) 104/69 (81) Pulse Ox 91 O2 Delivery Room Air Room Air Room Air Room Air 04/23/18 04/23/18 04/23/18 04/23/18 03:00 03:20 06:02 07:00 Temp 99.6 99.5 99.6 99.5 Pulse 91 88 Resp 20 18 B/P (MAP) 99/57 (71) 106/38 (60) Pulse Ox 92 96 O2 Delivery Room Air Room Air Room Air Room Air 04/23/18 04/23/18 09:58 10:49 Temp 98.8 98.8 Pulse 93 Resp 20 18 B/P (MAP) 109/57 (74) Pulse Ox 93 O2 Delivery Room Air Room Air Intake and Output 04/22/18 04/22/18 04/23/18 15:00 23:00 07:00 Intake Total 1360 ml 1500 ml Balance 1360 ml 1500 ml ANTHONY LARKIN MD Apr 23, 2018 13:28
[2018-04-23] MEDS: HYDROcodone/APAP 10/325 1 TAB TABLET PO PRN ×2 (14:30→23:09)
[2018-04-23 15:00] VITALS: BP 114/54
[2018-04-23 19:00] VITALS: BP 114/65
[2018-04-23 23:00] VITALS: BP 112/68
[2018-04-23] MEDS: ZOLPIDEM 5 MG TABLET. PO PRN (23:09)
[2018-04-24] MEDS: IV NORMAL SALINE 1000ML BAG 1,000 ML IV SCH ×2 (02:38→10:07)
[2018-04-24 03:00] VITALS: BP 110/57
[2018-04-24] MEDS: HYDROcodone/APAP 10/325 1 TAB TABLET PO PRN ×2 (05:02→14:57)
[2018-04-24 05:19] LABS: BASO # 0.1 x10^3/uL (0.0-0.2); BASO % 1 % (0-3); EOS # 0.5 x10^3/uL (0.0-0.7); EOS % 5 % (0-3); HEMATOCRIT 22.9 % (36.0-47.0); HEMOGLOBIN 7.9 g/dL (12.0-15.5); LYMPH # 3.7 x10^3/uL (1.0-4.8); LYMPH % 37 % (24-48); MEAN CORPUSCULAR HEMOGLOBIN 30 pg (25-35); MEAN CORPUSCULAR HGB CONC 34 g/dL (31-37); MEAN CORPUSCULAR VOLUME 88 fL (79-100); MONO # 0.4 x10^3/uL (0.0-1.1); MONO % 4 % (0-9); NEUT # 5.1 x10^3uL (1.8-7.7); NEUT % 53 % (31-73); PLATELET COUNT 455 x10^3/uL (140-400); RED CELL DISTRIBUTION WIDTH 21.6 % (11.5-14.5); WHITE BLOOD COUNT 9.8 x10^3/uL (4.0-11.0)
[2018-04-24 06:15] LABS: CALCIUM 8.6 mg/dL (8.5-10.1); CREATININE 0.6 mg/dL (0.6-1.0); GFR 152.7; POTASSIUM 4.2 mmol/L (3.5-5.1)
[2018-04-24 07:00] VITALS: BP 113/71
--- NOTE | 2018-04-24 08:18 | PDOC ---
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 DVT prophylaxis: Lovenox Elevated ferritin in May 2017: On recheck here the ferritin is normal, though iron sat of 48%, does not need iron supplementation from our standpoint dispo: can cont f/u w/ [facility] upon d/c Thank you kindly and please do not hesitate to call with questions. OBJECTIVE Vital Signs Vital Signs Date Time Temp Pulse Resp B/P (MAP) Pulse Ox O2 Delivery O2 Flow Rate FiO2 04/24/18 03:00 98.5 85 18 110/57 (74) 100 Room Air 98.5 04/23/18 23:00 98.4 78 18 112/68 (83) 98 Room Air 98.4 04/23/18 19:00 98.7 78 18 114/65 (81) 96 Room Air 98.7 04/23/18 18:28 20 93 Room Air 04/23/18 15:40 20 93 Room Air 04/23/18 15:00 98.4 90 18 114/54 (74) 96 Room Air 98.4 04/23/18 14:30 20 93 Room Air 04/23/18 10:49 98.8 93 18 109/57 (74) 93 Room Air 98.8 04/23/18 10:30 20 93 Room Air 04/23/18 09:58 20 Room Air I & O Intake and Output 04/24/18 07:00 Intake Total 4400 ml Output Total 1400 ml Balance 3000 ml Intake Oral 2400 ml IV Total 2000 ml Output Urine Total 1400 ml # Voids 1 COMMENT Lab Laboratory Tests Test 04/24/18 04:50 White Blood Count 9.8 x10^3/uL (4.0-11.0) Red Blood Count 2.60 x10^6/uL (3.50-5.40) Hemoglobin 7.9 g/dL (12.0-15.5) Hematocrit 22.9 % (36.0-47.0) Mean Corpuscular Volume 88 fL (79-100) Mean Corpuscular Hemoglobin 30 pg (25-35) Mean Corpuscular Hemoglobin Concent 34 g/dL (31-37) Red Cell Distribution Width 21.6 % (11.5-14.5) Platelet Count 455 x10^3/uL (140-400) Neutrophils (%) (Auto) 53 % (31-73) Lymphocytes (%) (Auto) 37 % (24-48) Monocytes (%) (Auto) 4 % (0-9) Eosinophils (%) (Auto) 5 % (0-3) Basophils (%) (Auto) 1 % (0-3) Neutrophils # (Auto) 5.1 x10^3uL (1.8-7.7) Lymphocytes # (Auto) 3.7 x10^3/uL (1.0-4.8) Monocytes # (Auto) 0.4 x10^3/uL (0.0-1.1) Eosinophils # (Auto) 0.5 x10^3/uL (0.0-0.7) Basophils # (Auto) 0.1 x10^3/uL (0.0-0.2) Sodium Level 141 mmol/L (136-145) Potassium Level 4.2 mmol/L (3.5-5.1) Chloride Level 104 mmol/L (98-107) Carbon Dioxide Level 29 mmol/L (21-32) Anion Gap 8 (6-14) Blood Urea Nitrogen 3 mg/dL (7-20) Creatinine 0.6 mg/dL (0.6-1.0) Estimated GFR (Cockcroft-Gault) 152.7 Glucose Level 87 mg/dL (70-99) Calcium Level 8.6 mg/dL (8.5-10.1) AUDREY MAGAÑA MD Apr 24, 2018 08:18
[2018-04-24] MEDS: FOLIC ACID 1 MG TABLET. PO SCH (08:38)
[2018-04-24] MEDS: PRENATAL MULTIVITAMIN TABLET. PO SCH (08:38)
[2018-04-24] MEDS: PSYLLIUM HUSK (SUGAR FREE) 1 PKT PACKET PO SCH (08:39)
[2018-04-24] MEDS: LACTOBACILLUS RHAMNOSUS GG 1 CAPSULE. PO SCH (08:39)
[2018-04-24] MEDS: HYDROmorphone 2 MG/ML VIAL IV PRN ×2 (08:40→16:52)
--- NOTE | 2018-04-24 08:52 | PDOC ---
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 based on insurance restrictions will need referral to [facility] Sickle cell disease (persistent hemoglobin) - needs a central supply nurse in . Currently starting a crisis, will keep on her pain regimen. H/o trichomonas during - treated 11months post- - good recovery H/O PE - s/p 6 months oral anticoagulation. Will place on lovenox PPX Gallstones - asymptomatic, common in SCD patients, monitor Hemorrhoids - with GI bleed 05/2017. Monitor Cardiomegaly - possible cardiomyopathy / SCD, mild murmur heard. Has some pulm congestion, possible pulm HTN, no problems here currently, should be monitored outpatient Frequent UTIs - urology consults FEN - General PPX - lovenox FULL CODE Inpatient for UTI causing a sickle cell crisis,likely at least 2-3 days inpatient History of Present Illness History of Present Illness 22 year old female with a PMH of sickle cell disease (persistent hemoglobin) who presents with one week of bilateral low abdominal pain that radiates up around her back. There is no associated nausea, vomiting, diarrhea. She has not found anything that makes it better or worse. Additionally she has a history of recurring UTIs and complains of dysuria, frequency, and vaginal itching for the past two weeks. Denies discharge. In regards to her sickle cell she thinks her last pain crisis was 8-10 months ago. Patient however reports diffuse sharp body pains that she says are indicative of the start of a pain crisis. She is up to date on her immunizations and does not take hydroxyurea. She has history of gallstones and denies any abdominal surgery. She has one child and had a PE after giving in April of 2017 but denies recurrence of blood clot. Reportedly she stopped Xarelto several months ago. Currently she denies chest pain and shortness of breath. 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 Mild fullness of the inferior moiety and associated ureter may be secondary to vesicoureteral reflux. [place] lightheaded and a little confused 04/21 . She is very constipated. Seen by urology, offered uretoscopy. Seen by Heme, on lovenox for ppx. Plan: 2 weeks of gu specific abx. suppressive TMP 100mg for 3mos after that. [facility] and [facility] as OP or upon discharge. IV rocephin for pyelo on right Bowel regimen Change morphine to dilaudid IV fluids for sickle crisis Pain control Consider cystoscopy-uretoscopy per urology if still in house tomorrow , otherwise will need f/u at [facility] in the very near future. notified urology again home today rec 2 weeks of gu specific abx. suppressive TMP 100mg for 3mos [facility] as OP or upon discharge. Vitals Vitals Vital Signs Date Time Temp Pulse Resp B/P (MAP) Pulse Ox O2 Delivery O2 Flow Rate FiO2 04/24/18 08:40 20 93 Room Air 04/24/18 07:00 98.7 55 113/71 (85) 98.7 Physical Exam Physical Exam GENERAL: NAD, Alert HEENT: PERRL, OC/OP NECK: Supple, no JVD, no LN LUNGS: Clear HEART: S1S2, no gallop, no murmur ABD: Soft, NT, no organomegaly, no rebound EXT: No edema, no cyanosis [employer]: Alert, oriented x 3, no focal neurologic deficit SKIN: No rash IV: ok cn 2-12 grossly intact General: Alert, Oriented X3, Cooperative, No acute distress, mild distress Heart: Regular rate, Normal S1, Normal S2, No murmurs Lungs: Clear Abdomen: Normal bowel sounds, Soft, No hepatosplenomegaly, No masses, Other ( Vasiliy LQ and right flank) Extremities: No clubbing, No cyanosis, No edema, Normal pulses, No tenderness/ swelling Skin: No rashes, No breakdown, No significant lesion Labs LABS Laboratory Tests Test 04/24/18 04:50 White Blood Count 9.8 x10^3/uL (4.0-11.0) Red Blood Count 2.60 x10^6/uL (3.50-5.40) Hemoglobin 7.9 g/dL (12.0-15.5) Hematocrit 22.9 % (36.0-47.0) Mean Corpuscular Volume 88 fL (79-100) Mean Corpuscular Hemoglobin 30 pg (25-35) Mean Corpuscular Hemoglobin Concent 34 g/dL (31-37) Red Cell Distribution Width 21.6 % (11.5-14.5) Platelet Count 455 x10^3/uL (140-400) Neutrophils (%) (Auto) 53 % (31-73) Lymphocytes (%) (Auto) 37 % (24-48) Monocytes (%) (Auto) 4 % (0-9) Eosinophils (%) (Auto) 5 % (0-3) Basophils (%) (Auto) 1 % (0-3) Neutrophils # (Auto) 5.1 x10^3uL (1.8-7.7) Lymphocytes # (Auto) 3.7 x10^3/uL (1.0-4.8) Monocytes # (Auto) 0.4 x10^3/uL (0.0-1.1) Eosinophils # (Auto) 0.5 x10^3/uL (0.0-0.7) Basophils # (Auto) 0.1 x10^3/uL (0.0-0.2) Sodium Level 141 mmol/L (136-145) Potassium Level 4.2 mmol/L (3.5-5.1) Chloride Level 104 mmol/L (98-107) Carbon Dioxide Level 29 mmol/L (21-32) Anion Gap 8 (6-14) Blood Urea Nitrogen 3 mg/dL (7-20) Creatinine 0.6 mg/dL (0.6-1.0) Estimated GFR (Cockcroft-Gault) 152.7 Glucose Level 87 mg/dL (70-99) Calcium Level 8.6 mg/dL (8.5-10.1) Comment Review of Relevant I have reviewed the following items samanta (where applicable) has been applied. Labs Laboratory Tests Test 04/22/18 14:15 04/23/18 04:10 04/24/18 04:50 White Blood Count 13.0 x10^3/uL (4.0-11.0) 11.1 x10^3/uL (4.0-11.0) 9.8 x10^3/uL (4.0-11.0) Red Blood Count 2.60 x10^6/uL (3.50-5.40) 2.43 x10^6/uL (3.50-5.40) 2.60 x10^6/uL (3.50-5.40) Hemoglobin 7.9 g/dL (12.0-15.5) 7.4 g/dL (12.0-15.5) 7.9 g/dL (12.0-15.5) Hematocrit 22.4 % (36.0-47.0) 21.2 % (36.0-47.0) 22.9 % (36.0-47.0) Mean Corpuscular Volume 86 fL (79-100) 87 fL (79-100) 88 fL (79-100) Mean Corpuscular Hemoglobin 30 pg (25-35) 30 pg (25-35) 30 pg (25-35) Mean Corpuscular Hemoglobin Concent 35 g/dL (31-37) 35 g/dL (31-37) 34 g/dL (31-37) Red Cell Distribution Width 19.3 % (11.5-14.5) 19.6 % (11.5-14.5) 21.6 % (11.5-14.5) Platelet Count 478 x10^3/uL (140-400) 405 x10^3/uL (140-400) 455 x10^3/uL (140-400) Neutrophils (%) (Auto) 40 % (31-73) 55 % (31-73) 53 % (31-73) Lymphocytes (%) (Auto) 51 % (24-48) 34 % (24-48) 37 % (24-48) Monocytes (%) (Auto) 5 % (0-9) 5 % (0-9) 4 % (0-9) Eosinophils (%) (Auto) 3 % (0-3) 5 % (0-3) 5 % (0-3) Basophils (%) (Auto) 1 % (0-3) 1 % (0-3) 1 % (0-3) Neutrophils # (Auto) 5.2 x10^3uL (1.8-7.7) 6.1 x10^3uL (1.8-7.7) 5.1 x10^3uL (1.8-7.7) Lymphocytes # (Auto) 6.6 x10^3/uL (1.0-4.8) 3.7 x10^3/uL (1.0-4.8) 3.7 x10^3/uL (1.0-4.8) Monocytes # (Auto) 0.6 x10^3/uL (0.0-1.1) 0.6 x10^3/uL (0.0-1.1) 0.4 x10^3/uL (0.0-1.1) Eosinophils # (Auto) 0.4 x10^3/uL (0.0-0.7) 0.5 x10^3/uL (0.0-0.7) 0.5 x10^3/uL (0.0-0.7) Basophils # (Auto) 0.2 x10^3/uL (0.0-0.2) 0.1 x10^3/uL (0.0-0.2) 0.1 x10^3/uL (0.0-0.2) Platelet Estimate Increased (ADEQUATE) Polychromasia Mod Anisocytosis Slight Sickle Cells Many Target Cells Mod Sodium Level 141 mmol/L (136-145) 141 mmol/L (136-145) Potassium Level 4.0 mmol/L (3.5-5.1) 4.2 mmol/L (3.5-5.1) Chloride Level 105 mmol/L (98-107) 104 mmol/L (98-107) Carbon Dioxide Level 29 mmol/L (21-32) 29 mmol/L (21-32) Anion Gap 7 (6-14) 8 (6-14) Blood Urea Nitrogen 4 mg/dL (7-20) 3 mg/dL (7-20) Creatinine 0.6 mg/dL (0.6-1.0) 0.6 mg/dL (0.6-1.0) Estimated GFR (Cockcroft-Gault) 152.7 152.7 BUN/Creatinine Ratio 7 (6-20) Glucose Level 86 mg/dL (70-99) 87 mg/dL (70-99) Calcium Level 8.5 mg/dL (8.5-10.1) 8.6 mg/dL (8.5-10.1) Total Bilirubin 2.4 mg/dL (0.2-1.0) Aspartate Amino Transf (AST/SGOT) 32 U/L (15-37) Alanine Aminotransferase (ALT/SGPT) 16 U/L (14-59) Alkaline Phosphatase 67 U/L (46-116) Total Protein 7.0 g/dL (6.4-8.2) Albumin 3.2 g/dL (3.4-5.0) Albumin/Globulin Ratio 0.8 (1.0-1.7) Laboratory Tests Test 04/24/18 04:50 White Blood Count 9.8 x10^3/uL (4.0-11.0) Red Blood Count 2.60 x10^6/uL (3.50-5.40) Hemoglobin 7.9 g/dL (12.0-15.5) Hematocrit 22.9 % (36.0-47.0) Mean Corpuscular Volume 88 fL (79-100) Mean Corpuscular Hemoglobin 30 pg (25-35) Mean Corpuscular Hemoglobin Concent 34 g/dL (31-37) Red Cell Distribution Width 21.6 % (11.5-14.5) Platelet Count 455 x10^3/uL (140-400) Neutrophils (%) (Auto) 53 % (31-73) Lymphocytes (%) (Auto) 37 % (24-48) Monocytes (%) (Auto) 4 % (0-9) Eosinophils (%) (Auto) 5 % (0-3) Basophils (%) (Auto) 1 % (0-3) Neutrophils # (Auto) 5.1 x10^3uL (1.8-7.7) Lymphocytes # (Auto) 3.7 x10^3/uL (1.0-4.8) Monocytes # (Auto) 0.4 x10^3/uL (0.0-1.1) Eosinophils # (Auto) 0.5 x10^3/uL (0.0-0.7) Basophils # (Auto) 0.1 x10^3/uL (0.0-0.2) Sodium Level 141 mmol/L (136-145) Potassium Level 4.2 mmol/L (3.5-5.1) Chloride Level 104 mmol/L (98-107) Carbon Dioxide Level 29 mmol/L (21-32) Anion Gap 8 (6-14) Blood Urea Nitrogen 3 mg/dL (7-20) Creatinine 0.6 mg/dL (0.6-1.0) Estimated GFR (Cockcroft-Gault) 152.7 Glucose Level 87 mg/dL (70-99) Calcium Level 8.6 mg/dL (8.5-10.1) Microbiology 04/19/18 Urine Culture - Final, Complete 04/19/18 Urine Culture Result 1 (AUBRIE) - Final, Complete 04/19/18 Antimicrobic Susceptibility - Final, Complete Medications Current Medications Sodium Chloride 1,000 ml @ 1,000 mls/hr 1X ONCE IV Last administered on at 19:30; Start 04/19/18 at 18:45; Stop 04/19/18 at 19:44; Status DC Fentanyl Citrate (Fentanyl 2ml Vial) 50 mcg 1X ONCE IV Last administered on at 19:32; Start 04/19/18 at 18:45; Stop 04/19/18 at 18:46; Status DC Ceftriaxone Sodium (Rocephin) 1 gm 1X ONCE IVP Last administered on 04/19/18at 19:44; Start 04/19/18 at 19:30; Stop 04/19/18 at 19:31; Status DC Morphine Sulfate (Morphine Sulfate) 8 mg 1X ONCE IV Last administered on at 20:32; Start 04/19/18 at 20:00; Stop 04/19/18 at 20:01; Status DC Ondansetron HCl (Zofran) 4 mg PRN Q8HRS PRN IV NAUSEA/VOMITING Last administered on 04/20/18at 16:11; Start 04/19/18 at 20:30; Stop 04/20/18 at 20:29 ; Status DC Morphine Sulfate (Morphine Sulfate) 8 mg PRN Q4HRS PRN IV PAIN; Start 04/19/18 at 20:30; Stop 04/19/18 at 22:00; Status DC Sodium Chloride 1,000 ml @ 125 mls/hr 1X ONCE IV Last administered on at 20:30; Start 04/19/18 at 20:30; Stop 04/20/18 at 04:29; Status DC Folic Acid (Folic Acid) 1 mg DAILY PO Last administered on 04/24/18at 08:38; Start 04/20/18 at 09:00 Nitrofurantoin Macrocrystals (Macrobid) 100 mg BID PO Last administered on 04/21 08:56; Start 04/20/18 at 09:00; Stop 04/21/18 at 16:00; Status DC Multivit/ Folic Acid/Iron (Multivitamin ) 1 tab DAILY PO Last administered on 04/24/18 08:38; Start 04/20/18 at 09:00 Acetaminophen/ Hydrocodone Bitart (Lortab 10/325) 1 tab PRN Q6HRS PRN PO PAIN Last administered on 04/24/18 05:02; Start 04/19/18 at 22:00 Morphine Sulfate (Ms Contin) 15 mg 1X ONCE PO Last administered on 04/19/18 22:15; Start 04/19/18 at 22:00; Stop 04/19/18 at 22:03; Status DC Morphine Sulfate (Morphine Sulfate) 10 mg PRN Q4HRS PRN IV PAIN Last administered on 04/22/18 06:08; Start 04/19/18 at 22:00; Stop 04/22/18 at 09:00 ; Status DC Sodium Chloride 1,000 ml @ 150 mls/hr Q6H40M IV Last administered on 02:38; Start 04/19/18 at 22:15 Zolpidem Tartrate (Ambien) 5 mg PRN QHS PRN PO INSOMNIA Last administered on 23:09; Start 04/20/18 at 00:45 Enoxaparin Sodium (Lovenox 40mg Syringe) 40 mg Q24H SQ Last administered on 09:46; Start 04/20/18 at 10:00 Meclizine HCl (Antivert) 25 mg PRN Q6HRS PRN PO DIZZINESS Last administered on 04/22/18 20:21; Start 04/20/18 at 20:30 Promethazine HCl (Phenergan) 12.5 mg PRN Q6HRS PRN PO NAUSEA/VOMITING Last administered on 04/22/18 20:21; Start 04/20/18 at 20:30 Ceftriaxone Sodium (Rocephin) 1 gm Q24H IVP Last administered on 04/23/18 12: 06; Start 04/21/18 at 10:00 Fluconazole (Diflucan) 150 mg 1X ONCE PO Last administered on 04/21/18 13:53 ; Start 04/21/18 at 13:45; Stop 04/21/18 at 13:46; Status DC Hydromorphone HCl (Dilaudid) 2 mg PRN Q4HRS PRN IV PAIN Last administered on 08:40; Start 04/22/18 at 09:00 Psyllium Hydrophilic Mucilloid (Metamucil Fiber Packet) 1 pkt DAILY PO Last administered on 04/24/18 08:39; Start 04/22/18 at 09:00 Polyethylene Glycol (miraLAX PACKET) 17 gm PRN BID PRN PO CONSTIPATION; Start 04/22/18 at 09:00 Senna/Docusate Sodium (Senna Plus) 2 tab PRN BID PRN PO CONSTIPATION Last administered on 04/23/18 23:13; Start 04/22/18 at 09:00 Magnesium Citrate (Citroma) 296 ml 1X ONCE PO Last administered on 04/22/18 09:40; Start 04/22/18 at 09:00; Stop 04/22/18 at 09:02; Status DC Ondansetron HCl (Zofran) 4 mg PRN Q6HRS PRN IV NAUSEA/VOMITING Last administered on 04/22/18 15:13; Start 04/22/18 at 15:15 Lactobacillus Rhamnosus (Culturelle) 1 cap BID PO Last administered on 08:39; Start 04/22/18 at 21:00 Active Scripts Active Cephalexin 500 Mg Tablet 1 Tab PO BID Bactrim Ds Tablet (Sulfamethoxazole/Trimethoprim) 1 Each Tablet 1 Tab PO BID Acyclovir 800 Mg Tablet 1 Tab PO 5XDAY Flagyl (Metronidazole) 500 Mg Tablet 1 Tab PO BID Macrobid 100 Mg Capsule (Nitrofurantoin Monohyd/M-Cryst) 100 Mg Capsule 1 Cap PO BID Plus Iron Tablet (Pnv With Ca,No.72/Iron,Carb/Fa) 1 Each Tablet 1 Tab PO DAILY Cephalexin 500 Mg Tablet 1 Tab PO BID Folic Acid 1 Mg Tablet 1 Tab PO DAILY Reported Hydrocodone-Apap 10-325 (Hydrocodone Bit/Acetaminophen) 1 Each Tablet 1 Tab PO PRN Q4-6HRS PRN No Known Medications Prior To Admisstion (Info) Each 1 Each MC No Known Medications Prior To Admisstion (Info) Each 1 Each Vitals/I & O Vital Sign - Last 24 Hours 04/23/18 04/23/18 04/23/18 04/23/18 09:58 10:30 10:49 14:30 Temp 98.8 98.8 Pulse 93 Resp 20 20 18 20 B/P (MAP) 109/57 (74) Pulse Ox 93 93 93 O2 Delivery Room Air Room Air Room Air Room Air 04/23/18 04/23/18 04/23/18 04/23/18 15:00 15:40 18:28 19:00 Temp 98.4 98.7 98.4 98.7 Pulse 90 78 Resp 18 20 20 18 B/P (MAP) 114/54 (74) 114/65 (81) Pulse Ox 96 93 93 96 O2 Delivery Room Air Room Air Room Air Room Air 04/23/18 04/24/18 04/24/18 04/24/18 23:00 03:00 07:00 08:40 Temp 98.4 98.5 98.7 98.4 98.5 98.7 Pulse 78 85 55 Resp 18 18 18 20 B/P (MAP) 112/68 (83) 110/57 (74) 113/71 (85) Pulse Ox 98 100 100 93 O2 Delivery Room Air Room Air Room Air Room Air Intake and Output 04/23/18 04/23/18 04/24/18 15:00 23:00 07:00 Intake Total 300 ml 2200 ml 1900 ml Output Total 1400 ml Balance -1100 ml 2200 ml 1900 ml ANTHONY LARKIN MD Apr 24, 2018 08:52
[2018-04-24] MEDS: ENOXAPARIN 40 MG/0.4 ML SYRINGE. SQ SCH (10:07)
[2018-04-24 11:06] VITALS: BP 110/68
--- NOTE | 2018-04-24 14:00 | PDOC3 ---
Discharge Summary Date of Admission: Apr 19, 2018 Date of Discharge: Apr 24, 2018 Follow-Up: 3-5 days Admitting Diagnosis comment: discharge dx Chief Complaint A/P: Abdominal pain - active UTI currently with likely pyelo on right with dual ureter complicating Dual right uretal collecting system - with her frequent UTIs should have a urologist outpatient. 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 Currently starting a crisis, will keep on her pain regimen. H/o trichomonas during - treated 11months post- - good recovery H/O PE - s/p 6 months oral anticoagulation. Will place on lovenox PPX Gallstones - asymptomatic, common in SCD patients, monitor Hemorrhoids - with GI bleed 05/2017. 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 Has some pulm congestion, possible pulm HTN, no problems here currently, should be monitored outpatient Frequent UTIs - urology consults FEN - General PPX - lovenox FULL CODE Inpatient for UTI causing a sickle cell crisis,likely at least 2-3 days inpatient History of Present Illness History of Present Illness 22 year old female with a PMH of sickle cell disease (persistent hemoglobin) who presents with one week of bilateral low abdominal pain that radiates up around her back. There is no associated nausea, vomiting, diarrhea. She has not found anything that makes it better or worse. Additionally she has a history of recurring UTIs and complains of dysuria, frequency, and vaginal itching for the past two weeks. Denies discharge. In regards to her sickle cell she thinks her last pain crisis was 8-10 months ago. Patient however reports diffuse sharp body pains that she says are indicative of the start of a pain crisis. She is up to date on her immunizations and does not take hydroxyurea. She has history of gallstones and denies any abdominal surgery. She has one child and had a PE after giving in April of 2017 but denies recurrence of blood clot. Reportedly she stopped Xarelto several months ago. Currently she denies chest pain and shortness of breath. 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 Mild fullness of the inferior moiety and associated ureter may be secondary to vesicoureteral reflux. [place] lightheaded and a little confused 04/21 . She is very constipated. Seen by urology, offered uretoscopy. Seen by [facility], on lovenox for ppx. 04/24 plan d/c today urology to see [facility] Plan: 2 weeks of gu specific abx. suppressive TMP 100mg for 3mos [facility] and [facility] as OP PO AUGMENTIN X 2 WEEKS Bowel regimen Change morphine to dilaudid IV fluids for sickle crisis Pain control Consider cystoscopy-uretoscopy per urology if still in house tomorrow , otherwise will need f/u at [facility] in the very near future. notified urology again home today rec 2 weeks of gu specific abx. suppressive TMP 100mg for 3mos [facility] and [facility] as OP or upon discharge. Vitals URINE CULTURE Final Final report URINE CULTURE RES 1 Final Escherichia coli Greater than 100,000 colony forming units per mL Cefazolin <=4 ug/mL Cefazolin with an AUBRIE <=16 predicts susceptibility to the oral agents cefaclor, cefdinir, cefpodoxime, cefprozil, cefuroxime, cephalexin, and loracarbef when used for therapy of uncomplicated urinary tract infections due to E. coli, Klebsiella pneumoniae, and Proteus mirabilis. ANTIMICROBIAL SUSCEPTIBILITY Final Comment S = Susceptible; I = Intermediate; R = Resistant P = Positive; N = Negative MICS are expressed in micrograms per mL Antibiotic RSLT#1 RSLT#2 RSLT#3 RSLT#4 Amoxicillin/Clavulanic Acid S<=2 Ampicillin S<=2 Cefepime S<=0.12 Ceftriaxone S<=0.25 Cefuroxime S =4 Ciprofloxacin R>=4 Ertapenem S<=0.12 Gentamicin S<=1 Imipenem S<=0.25 Levofloxacin R>=8 Meropenem S<=0.25 Nitrofurantoin S<=16 Piperacillin/Tazobactam S<=4 Tetracycline S<=1 Tobramycin S<=1 Trimethoprim/Sulfa S<=20 Performed at: DA - [facility] [id number], [place], [place] [id number] Brief Hospital Course Ms. Montes is a 22 old [sex] who presented with [ acute pyelonephritis] CONDITION AT DISCHARGE: Improved Discharge Medications Current Medications Sodium Chloride 1,000 ml @ 1,000 mls/hr 1X ONCE IV Last administered on at 19:30; Start 04/19/18 at 18:45; Stop 04/19/18 at 19:44; Status DC Fentanyl Citrate (Fentanyl 2ml Vial) 50 mcg 1X ONCE IV Last administered on at 19:32; Start 04/19/18 at 18:45; Stop 04/19/18 at 18:46; Status DC Ceftriaxone Sodium (Rocephin) 1 gm 1X ONCE IVP Last administered on 04/19/18at 19:44; Start 04/19/18 at 19:30; Stop 04/19/18 at 19:31; Status DC Morphine Sulfate (Morphine Sulfate) 8 mg 1X ONCE IV Last administered on at 20:32; Start 04/19/18 at 20:00; Stop 04/19/18 at 20:01; Status DC Ondansetron HCl (Zofran) 4 mg PRN Q8HRS PRN IV NAUSEA/VOMITING Last administered on 04/20/18at 16:11; Start 04/19/18 at 20:30; Stop 04/20/18 at 20:29 ; Status DC Morphine Sulfate (Morphine Sulfate) 8 mg PRN Q4HRS PRN IV PAIN; Start 04/19/18 at 20:30; Stop 04/19/18 at 22:00; Status DC Sodium Chloride 1,000 ml @ 125 mls/hr 1X ONCE IV Last administered on at 20:30; Start 04/19/18 at 20:30; Stop 04/20/18 at 04:29; Status DC Folic Acid (Folic Acid) 1 mg DAILY PO Last administered on 04/24/18 08:38; Start 04/20/18 at 09:00 Nitrofurantoin Macrocrystals (Macrobid) 100 mg BID PO Last administered on 04/21 08:56; Start 04/20/18 at 09:00; Stop 04/21/18 at 16:00; Status DC Multivit/ Folic Acid/Iron (Multivitamin ) 1 tab DAILY PO Last administered on 04/24/18 08:38; Start 04/20/18 at 09:00 Acetaminophen/ Hydrocodone Bitart (Lortab 10/325) 1 tab PRN Q6HRS PRN PO PAIN Last administered on 04/24/18 05:02; Start 04/19/18 at 22:00 Morphine Sulfate (Ms Contin) 15 mg 1X ONCE PO Last administered on 04/19/18 22:15; Start 04/19/18 at 22:00; Stop 04/19/18 at 22:03; Status DC Morphine Sulfate (Morphine Sulfate) 10 mg PRN Q4HRS PRN IV PAIN Last administered on 04/22/18 06:08; Start 04/19/18 at 22:00; Stop 04/22/18 at 09:00 ; Status DC Sodium Chloride 1,000 ml @ 150 mls/hr Q6H40M IV Last administered on 10:07; Start 04/19/18 at 22:15 Zolpidem Tartrate (Ambien) 5 mg PRN QHS PRN PO INSOMNIA Last administered on 23:09; Start 04/20/18 at 00:45 Enoxaparin Sodium (Lovenox 40mg Syringe) 40 mg Q24H SQ Last administered on 10:07; Start 04/20/18 at 10:00 Meclizine HCl (Antivert) 25 mg PRN Q6HRS PRN PO DIZZINESS Last administered on 04/22/18 20:21; Start 04/20/18 at 20:30 Promethazine HCl (Phenergan) 12.5 mg PRN Q6HRS PRN PO NAUSEA/VOMITING Last administered on 04/22/18 20:21; Start 04/20/18 at 20:30 Ceftriaxone Sodium (Rocephin) 1 gm Q24H IVP Last administered on 04/23/18 12: 06; Start 04/21/18 at 10:00 Fluconazole (Diflucan) 150 mg 1X ONCE PO Last administered on 04/21/18 13:53 ; Start 04/21/18 at 13:45; Stop 04/21/18 at 13:46; Status DC Hydromorphone HCl (Dilaudid) 2 mg PRN Q4HRS PRN IV PAIN Last administered on 08:40; Start 04/22/18 at 09:00 Psyllium Hydrophilic Mucilloid (Metamucil Fiber Packet) 1 pkt DAILY PO Last administered on 04/24/18 08:39; Start 04/22/18 at 09:00 Polyethylene Glycol (miraLAX PACKET) 17 gm PRN BID PRN PO CONSTIPATION; Start 04/22/18 at 09:00 Senna/Docusate Sodium (Senna Plus) 2 tab PRN BID PRN PO CONSTIPATION Last administered on 04/23/18 23:13; Start 04/22/18 at 09:00 Magnesium Citrate (Citroma) 296 ml 1X ONCE PO Last administered on 04/22/18 09:40; Start 04/22/18 at 09:00; Stop 04/22/18 at 09:02; Status DC Ondansetron HCl (Zofran) 4 mg PRN Q6HRS PRN IV NAUSEA/VOMITING Last administered on 04/22/18 15:13; Start 04/22/18 at 15:15 Lactobacillus Rhamnosus (Culturelle) 1 cap BID PO Last administered on 08:39; Start 04/22/18 at 21:00 Active Scripts Active Cephalexin 500 Mg Tablet 1 Tab PO BID Bactrim Ds Tablet (Sulfamethoxazole/Trimethoprim) 1 Each Tablet 1 Tab PO BID Acyclovir 800 Mg Tablet 1 Tab PO 5XDAY Flagyl (Metronidazole) 500 Mg Tablet 1 Tab PO BID Macrobid 100 Mg Capsule (Nitrofurantoin Monohyd/M-Cryst) 100 Mg Capsule 1 Cap PO BID Plus Iron Tablet (Pnv With Ca,No.72/Iron,Carb/Fa) 1 Each Tablet 1 Tab PO DAILY Cephalexin 500 Mg Tablet 1 Tab PO BID Folic Acid 1 Mg Tablet 1 Tab PO DAILY Reported Hydrocodone-Apap 10-325 (Hydrocodone Bit/Acetaminophen) 1 Each Tablet 1 Tab PO PRN Q4-6HRS PRN No Known Medications Prior To Admisstion (Info) Each 1 Each No Known Medications Prior To Admisstion (Info) Each 1 Each Vital Signs Vital Signs Date Time Temp Pulse Resp B/P (MAP) Pulse Ox O2 Delivery O2 Flow Rate FiO2 04/24/18 11:06 98.2 58 18 110/68 (82) 100 Room Air 98.2 Labs Laboratory Tests Test 2/24/19 14:15 04/23/18 04:10 04/24/18 04:50 White Blood Count 13.0 x10^3/uL (4.0-11.0) 11.1 x10^3/uL (4.0-11.0) 9.8 x10^3/uL (4.0-11.0) Red Blood Count 2.60 x10^6/uL (3.50-5.40) 2.43 x10^6/uL (3.50-5.40) 2.60 x10^6/uL (3.50-5.40) Hemoglobin 7.9 g/dL (12.0-15.5) 7.4 g/dL (12.0-15.5) 7.9 g/dL (12.0-15.5) Hematocrit 22.4 % (36.0-47.0) 21.2 % (36.0-47.0) 22.9 % (36.0-47.0) Mean Corpuscular Volume 86 fL (79-100) 87 fL (79-100) 88 fL (79-100) Mean Corpuscular Hemoglobin 30 pg (25-35) 30 pg (25-35) 30 pg (25-35) Mean Corpuscular Hemoglobin Concent 35 g/dL (31-37) 35 g/dL (31-37) 34 g/dL (31-37) Red Cell Distribution Width 19.3 % (11.5-14.5) 19.6 % (11.5-14.5) 21.6 % (11.5-14.5) Platelet Count 478 x10^3/uL (140-400) 405 x10^3/uL (140-400) 455 x10^3/uL (140-400) Neutrophils (%) (Auto) 40 % (31-73) 55 % (31-73) 53 % (31-73) Lymphocytes (%) (Auto) 51 % (24-48) 34 % (24-48) 37 % (24-48) Monocytes (%) (Auto) 5 % (0-9) 5 % (0-9) 4 % (0-9) Eosinophils (%) (Auto) 3 % (0-3) 5 % (0-3) 5 % (0-3) Basophils (%) (Auto) 1 % (0-3) 1 % (0-3) 1 % (0-3) Neutrophils # (Auto) 5.2 x10^3uL (1.8-7.7) 6.1 x10^3uL (1.8-7.7) 5.1 x10^3uL (1.8-7.7) Lymphocytes # (Auto) 6.6 x10^3/uL (1.0-4.8) 3.7 x10^3/uL (1.0-4.8) 3.7 x10^3/uL (1.0-4.8) Monocytes # (Auto) 0.6 x10^3/uL (0.0-1.1) 0.6 x10^3/uL (0.0-1.1) 0.4 x10^3/uL (0.0-1.1) Eosinophils # (Auto) 0.4 x10^3/uL (0.0-0.7) 0.5 x10^3/uL (0.0-0.7) 0.5 x10^3/uL (0.0-0.7) Basophils # (Auto) 0.2 x10^3/uL (0.0-0.2) 0.1 x10^3/uL (0.0-0.2) 0.1 x10^3/uL (0.0-0.2) Platelet Estimate Increased (ADEQUATE) Polychromasia Mod Anisocytosis Slight Sickle Cells Many Target Cells Mod Sodium Level 141 mmol/L (136-145) 141 mmol/L (136-145) Potassium Level 4.0 mmol/L (3.5-5.1) 4.2 mmol/L (3.5-5.1) Chloride Level 105 mmol/L (98-107) 104 mmol/L (98-107) Carbon Dioxide Level 29 mmol/L (21-32) 29 mmol/L (21-32) Anion Gap 7 (6-14) 8 (6-14) Blood Urea Nitrogen 4 mg/dL (7-20) 3 mg/dL (7-20) Creatinine 0.6 mg/dL (0.6-1.0) 0.6 mg/dL (0.6-1.0) Estimated GFR (Cockcroft-Gault) 152.7 152.7 BUN/Creatinine Ratio 7 (6-20) Glucose Level 86 mg/dL (70-99) 87 mg/dL (70-99) Calcium Level 8.5 mg/dL (8.5-10.1) 8.6 mg/dL (8.5-10.1) Total Bilirubin 2.4 mg/dL (0.2-1.0) Aspartate Amino Transf (AST/SGOT) 32 U/L (15-37) Alanine Aminotransferase (ALT/SGPT) 16 U/L (14-59) Alkaline Phosphatase 67 U/L (46-116) Total Protein 7.0 g/dL (6.4-8.2) Albumin 3.2 g/dL (3.4-5.0) Albumin/Globulin Ratio 0.8 (1.0-1.7) Laboratory Tests Test 04/24/18 04:50 White Blood Count 9.8 x10^3/uL (4.0-11.0) Red Blood Count 2.60 x10^6/uL (3.50-5.40) Hemoglobin 7.9 g/dL (12.0-15.5) Hematocrit 22.9 % (36.0-47.0) Mean Corpuscular Volume 88 fL (79-100) Mean Corpuscular Hemoglobin 30 pg (25-35) Mean Corpuscular Hemoglobin Concent 34 g/dL (31-37) Red Cell Distribution Width 21.6 % (11.5-14.5) Platelet Count 455 x10^3/uL (140-400) Neutrophils (%) (Auto) 53 % (31-73) Lymphocytes (%) (Auto) 37 % (24-48) Monocytes (%) (Auto) 4 % (0-9) Eosinophils (%) (Auto) 5 % (0-3) Basophils (%) (Auto) 1 % (0-3) Neutrophils # (Auto) 5.1 x10^3uL (1.8-7.7) Lymphocytes # (Auto) 3.7 x10^3/uL (1.0-4.8) Monocytes # (Auto) 0.4 x10^3/uL (0.0-1.1) Eosinophils # (Auto) 0.5 x10^3/uL (0.0-0.7) Basophils # (Auto) 0.1 x10^3/uL (0.0-0.2) Sodium Level 141 mmol/L (136-145) Potassium Level 4.2 mmol/L (3.5-5.1) Chloride Level 104 mmol/L (98-107) Carbon Dioxide Level 29 mmol/L (21-32) Anion Gap 8 (6-14) Blood Urea Nitrogen 3 mg/dL (7-20) Creatinine 0.6 mg/dL (0.6-1.0) Estimated GFR (Cockcroft-Gault) 152.7 Glucose Level 87 mg/dL (70-99) Calcium Level 8.6 mg/dL (8.5-10.1) Allergies Allergies Coded Allergies Type Severity Reaction Last Updated Verified iodine Allergy Severe anaphylaxis,rash 12/22/17 Yes Disposition/Orders: D/C to Home Patient Instructions D/C PLANNING 32 MIN ANTHONY LARKIN MD Apr 24, 2018 14:00
[2018-04-24] MEDS: cefTRIAXone IV Push 1 GM VIAL. IVP SCH (14:57)
[2018-04-24 15:00] VITALS: BP 108/64
[2018-04-24] MEDS ORDERED: POLY17PO28 PO (15:14)
[2018-04-24] MEDS ORDERED: MECL12.52 PO (15:14)
[2018-04-24] MEDS ORDERED: AMOX1TAB58 PO (15:14)
[2018-04-24] MEDS ORDERED: LACT1CAP19 PO (15:14)
--- NOTE | 2018-04-24 15:16 | DISCH ---
DISCHARGE INSTRUCTIONS Condition on Discharge Condition on Discharge: Stable Activity After Discharge Activity Instructions for Disc: Activity as tolerated Lifting Instructions after Dis: No heavy lifting, No pulling or pushing Driving Instructions after Dis: Do not drive today Weight Bearing Status after Di: As tolerated Diet after Discharge Diet after Discharge: Regular Wound Incision Care Wound/Incision Care: No wound care needed Checks after Discharge Checks after discharge: Check blood press - daily Contacting the DR. after DC Call your doctor for: If your condition worsens Treatment/Equipment after DC Adaptive Equipment Issued: None ANTHONY LARKIN MD Apr 24, 2018 15:16
--- NOTE | 2018-04-24 18:20 | NUR ---
DISCHARGE INSTRUCTIONS GIVEN, QUESTIONS AND CONCERNS ANSWERED, PATIENT VERBALIZED UNDERSTANDING OF DISCHARGE INFORMATION INCLUDING TAKING ALL MEDICATIONS INSTRUCTED AND FOLLOWING UP WITH HER PRIMARY PROVIDER MARY WELL FOLLOWING UP AT [facility] INSTRUCTED.
--- NOTE | 2018-04-24 18:45 | NUR ---
PATIENT LEAVES THE UNIT PER W/C ACCOMPANIED BY HER FAMILY MEMBER, EMOTIONAL SUPPORT GIVEN, FOLLOW UP APPOINTMENTS ENCOURAGED.
== END 2018-04-24 18:44 | disposition home or self-care (01) | DRG 871 ==
LOC: ER 17:58 → 5 SOUTH 20:23
PROVIDERS: ADMIT Internal Medicine; ATTEND Internal Medicine
DX: A41.9 Sepsis, unspecified organism (principal); D57.00 Hb-SS disease with crisis, unspecified; N10 Acute pyelonephritis; K80.20 Calculus of gallbladder without cholecystitis without obstruction; K59.00 Constipation, unspecified; G89.29 Other chronic pain; D56.4 Hereditary persistence of fetal hemoglobin [HPFH]; Q62.5 Duplication of ureter; Z87.440 Personal history of urinary (tract) infections; Z86.711 Personal history of pulmonary embolism; Q63.8 Other specified congenital malformations of kidney
CPT/HCPCS: 36415; 51798; 74176; 80048; 80053; 81001; 81025; 82728; 83540; 83550; 83690; 85025; 85045; 87086; 87186; 96361; 96374; 96375; J0696; J1170; J1650; J2270; J2405; J3010; J7030; J8597; Q0169; 99285-25

== ENCOUNTER 2018-06-02 20:42 | Emergency (ER) | payer MEDICARE, OTHER ==
[~2018-06-02] VITALS: Ht 170.2 cm; Wt 72.6 kg
[~2018-06-02 20:42] MED LIST changes: +AMOX1TAB58 PO; +LACT1CAP19 PO; +MECL12.52 PO; +POLY17PO28 PO
[2018-06-02 21:07] LABS: BILIRUBIN,URINE NEGATIVE (NEG); CLARITY,URINE CLEAR; COLOR,URINE YELLOW; NITRITE,URINE NEGATIVE (NEG); PROTEIN,URINE NEGATIVE (NEG-TRACE)
[2018-06-02 21:13] LABS: BACTERIA,URINE MANY /HPF (0-FEW); RBC,URINE RARE /HPF (0-2); SQUAMOUS EPITHELIAL CELL,UR MANY /LPF
--- NOTE | 2018-06-02 21:24 | PHYS DOC ---
Past Medical History Past Medical History: Sickle Cell Disease, STD, Other Additional Past Medical Histor: MULTIPLE BLOOD TRANSFUSIONS,CHRONIC PAIN, Past Surgical History: No Surgical History Alcohol Use: None Drug Use: None Adult General Chief Complaint Chief Complaint: PAIN ON URINATION HPI HPI Patient is a 22 year old flank pain. Patient states flank pain is located on her right side and radiates up into her groin. His pain is sharp in nature and is a 6 out of 10. The pain is similar to the pain she had when she had a recent kidney infection. She recently completed her course of antibiotics 4 days ago. However, she states that her pain never improved while on this course of antibiotics. In addition to her flank pain she is complaining of some vaginal discharge as creamy. She denies any fevers, chills, nausea, vomiting, chest pain or shortness of breath. Patient's LNMP May 15.[] Review of Systems Review of Systems Constitutional: Denies fever or chills [] Eyes: Denies redness or eye pain [] HENT: Denies nasal congestion or sore throat [] Respiratory: Denies cough or shortness of breath [] Cardiovascular: Denies chest pain or shortness of breath[] GI: Reports suprapubic abdominal, denies nausea, vomiting, bloody stools or diarrhea [] : Reports vaginal discharge, denies dysuria or hematuria [] Musculoskeletal: Reports right-sided flank pain, denies back pain or joint pain [] Integument: Denies rash or skin lesions [] Neurologic: Denies headache or focal weakness[] Complete systems were reviewed and found to be within normal limits, except as documented in this note. Current Medications Current Medications Current Medications Medications (Trade) Dose Ordered Sig/Nicole Start Time Stop Time Status Last Admin Dose Admin Sodium Chloride 1,000 ml @ 1,000 mls/hr 1X ONCE 06/02/18 22:15 06/02/18 23:14 DC 06/02/18 23:08 1,000 MLS/HR Allergies Allergies Allergies Coded Allergies Type Severity Reaction Last Updated Verified iodine Allergy Severe anaphylaxis,rash 12/22/17 Yes Physical Exam Physical Exam Constitutional: Well developed, well nourished, no acute distress. [] HENT: Normocephalic, atraumatic. [] Eyes: EOMI, conjunctiva normal, no discharge. [] Neck: Normal range of motion, no tenderness, supple. [] Cardiovascular:Heart rate regular rhythm, no murmur [] Lungs & Thorax: Bilateral breath sounds clear to auscultation [] Abdomen: Bowel sounds normal, soft, suprapubic tenderness. [] Skin: Warm, dry, no erythema, no rash. [] Back: No tenderness, right sided CVA tenderness. [] Extremities: No tenderness, no cyanosis, no edema. [] Neurologic: Alert and oriented X 3, no focal deficits noted. [] Psychologic: Affect normal, mood normal. [] Current Patient Data Vital Signs Vital Signs Date Time Temp Pulse Resp B/P (MAP) Pulse Ox O2 Delivery O2 Flow Rate FiO2 06/02/18 23:11 92 20 129/66 (87) 97 06/02/18 21:13 99.2 Room Air 99.2 Lab Values Laboratory Tests Test 06/02/18 20:50 06/02/18 20:58 06/02/18 22:15 06/02/18 23:00 Urine Collection Type Void U cath Urine Color Yellow Yellow Urine Clarity Clear Clear Urine pH 6.0 6.0 Urine Specific [place] 1.015 1.015 Urine Protein Negative mg/dL (NEG-TRACE) Negative mg/dL (NEG-TRACE) Urine Glucose (UA) Negative mg/dL (NEG) Negative mg/dL (NEG) Urine Ketones (Stick) Negative mg/dL (NEG) Negative mg/dL (NEG) Urine Blood Negative (NEG) Negative (NEG) Urine Nitrite Negative (NEG) Negative (NEG) Urine Bilirubin Negative (NEG) Negative (NEG) Urine Urobilinogen Dipstick 1.0 mg/dL (0.2 mg/dL) 1.0 mg/dL (0.2 mg/dL) Urine Leukocyte Esterase Moderate (NEG) Trace (NEG) Urine RBC Rare /HPF (0-2) 0 /HPF (0-2) Urine WBC 5-10 /HPF (0-4) 1-4 /HPF (0-4) Urine Squamous Epithelial Cells Many /LPF Few /LPF Urine Bacteria Many /HPF (0-FEW) 0 /HPF (0-FEW) Urine Mucus Marked /LPF Mod /LPF POC Urine HCG, Qualitative Hcg negative (Negative) White Blood Count 10.5 x10^3/uL (4.0-11.0) Red Blood Count 3.17 x10^6/uL (3.50-5.40) L Hemoglobin 9.4 g/dL (12.0-15.5) L Hematocrit 28.0 % (36.0-47.0) L Mean Corpuscular Volume 89 fL (79-100) Mean Corpuscular Hemoglobin 30 pg (25-35) Mean Corpuscular Hemoglobin Concent 34 g/dL (31-37) Red Cell Distribution Width 17.1 % (11.5-14.5) H Platelet Count 350 x10^3/uL (140-400) Neutrophils (%) (Auto) 56 % (31-73) Lymphocytes (%) (Auto) 33 % (24-48) Monocytes (%) (Auto) 7 % (0-9) Eosinophils (%) (Auto) 3 % (0-3) Basophils (%) (Auto) 1 % (0-3) Neutrophils # (Auto) 5.9 x10^3uL (1.8-7.7) Lymphocytes # (Auto) 3.4 x10^3/uL (1.0-4.8) Monocytes # (Auto) 0.7 x10^3/uL (0.0-1.1) Eosinophils # (Auto) 0.4 x10^3/uL (0.0-0.7) Basophils # (Auto) 0.1 x10^3/uL (0.0-0.2) Sodium Level 139 mmol/L (136-145) Potassium Level 4.4 mmol/L (3.5-5.1) Chloride Level 103 mmol/L (98-107) Carbon Dioxide Level 22 mmol/L (21-32) Anion Gap 14 (6-14) Blood Urea Nitrogen 9 mg/dL (7-20) Creatinine 0.4 mg/dL (0.6-1.0) L Estimated GFR (Cockcroft-Gault) 243.8 BUN/Creatinine Ratio 23 (6-20) H Glucose Level 105 mg/dL (70-99) H Lactic Acid Level 1.3 mmol/L (0.4-2.0) Calcium Level 9.6 mg/dL (8.5-10.1) Magnesium Level 2.1 mg/dL (1.8-2.4) Total Bilirubin 3.1 mg/dL (0.2-1.0) H Aspartate Amino Transferase (AST) 58 U/L (15-37) H Alanine Aminotransferase (ALT) 34 U/L (14-59) Alkaline Phosphatase 95 U/L (46-116) Total Protein 8.7 g/dL (6.4-8.2) H Albumin 4.1 g/dL (3.4-5.0) Albumin/Globulin Ratio 0.9 (1.0-1.7) L Laboratory Tests 06/02/18 22:15 Laboratory Tests 06/02/18 22:15 EKG EKG [] Radiology/Procedures Radiology/Procedures [] Course & Med Decision Making Course & Med Decision Making 22-year-old female presented to the emergency department for right-sided flank pain. 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 Patient has been unable to see a urologist. Labs were obtained and posted to chart. Due to recent CT imaging at previous visit CT imaging at this visit was not preformed. Symptomatic treatment provided with interval improvement. Antibiotics not provided patient due to lack of UTI. Encouraged patient to schedule appointment urology to address her underlying kidney abnormalities. Patient stable for discharge with outpatient follow-up with PCP. Discussed findings and plan with patient and family, who acknowledge understanding and agreement. [] Dragon Disclaimer Dragon Disclaimer This electronic medical record was generated, in whole or in part, using a voice recognition dictation system. Departure Departure Impression: Primary Impression: Flank pain Disposition: 01 HOME, SELF-CARE Condition: STABLE Referrals: NO PCP (PCP) DAVID WOODS MD Patient Instructions: Flank Pain, [id number] Scripts Hydrocodone/Apap 5-325 (NORCO 5-325 TABLET) 1 Each Tablet 1 TAB PO PRN Q6HRS PRN for PAIN, #6 TAB 0 Refills Prov: SALVADOR PINA DO 06/03/18 SALVADOR PINA DO Jun 02, 2018 21:24
[2018-06-02] MEDS ORDERED: IV NORMAL SALINE 1000ML BAG 1,000 ML IV ONE (22:15)
[2018-06-02 22:29] LABS: BASO # 0.1 x10^3/uL (0.0-0.2); BASO % 1 % (0-3); EOS # 0.4 x10^3/uL (0.0-0.7); EOS % 3 % (0-3); HEMOGLOBIN 9.4 g/dL (12.0-15.5); LYMPH # 3.4 x10^3/uL (1.0-4.8); LYMPH % 33 % (24-48); MEAN CORPUSCULAR HEMOGLOBIN 30 pg (25-35); MEAN CORPUSCULAR HGB CONC 34 g/dL (31-37); MEAN CORPUSCULAR VOLUME 89 fL (79-100); MONO # 0.7 x10^3/uL (0.0-1.1); MONO % 7 % (0-9); NEUT # 5.9 x10^3uL (1.8-7.7); NEUT % 56 % (31-73); PLATELET COUNT 350 x10^3/uL (140-400); RED BLOOD COUNT 3.17 x10^6/uL (3.50-5.40); RED CELL DISTRIBUTION WIDTH 17.1 % (11.5-14.5); WHITE BLOOD COUNT 10.5 x10^3/uL (4.0-11.0)
[2018-06-02 22:40] LABS: CALCIUM 9.6 mg/dL (8.5-10.1); CREATININE 0.4 mg/dL (0.6-1.0); GFR 243.8; POTASSIUM 4.4 mmol/L (3.5-5.1)
[2018-06-02 22:54] LABS: ALBUMIN 4.1 g/dL (3.4-5.0); ALBUMIN/GLOBULIN RATIO 0.9 (1.0-1.7); MAGNESIUM 2.1 mg/dL (1.8-2.4); TOTAL BILIRUBIN 3.1 mg/dL (0.2-1.0); TOTAL PROTEIN 8.7 g/dL (6.4-8.2)
[2018-06-02 23:09] LABS: BILIRUBIN,URINE NEGATIVE (NEG); CLARITY,URINE CLEAR; COLOR,URINE YELLOW; NITRITE,URINE NEGATIVE (NEG); PROTEIN,URINE NEGATIVE (NEG-TRACE)
[2018-06-02 23:11] VITALS: BP 129/66
[2018-06-02 23:17] LABS: RBC,URINE 0 /HPF (0-2); SQUAMOUS EPITHELIAL CELL,UR FEW /LPF
[2018-06-02 23:19] LABS: BACTERIA,URINE 0 /HPF (0-FEW)
[2018-06-03] MEDS ORDERED: HYDR-3164 PO
== END 2018-06-03 00:33 | disposition home or self-care (01) ==
LOC: ER 20:42
DX: R10.30 Lower abdominal pain, unspecified (principal); N89.8 Other specified noninflammatory disorders of vagina; G89.29 Other chronic pain; Z88.8 Allergy status to other drugs, medicaments and biological substances
CPT/HCPCS: 36415; 51701; 80053; 81001; 81025; 83605; 83735; 85025; 87086; 99283; J7030

== ENCOUNTER 2018-06-15 12:24 | Emergency (ER) | payer MEDICARE, OTHER ==
[~2018-06-15] VITALS: Ht 167.6 cm; Wt 72.6 kg
[~2018-06-15 12:24] MED LIST changes: +HYDR-3164 PO
[2018-06-15 12:35] VITALS: BP 119/64
[2018-06-15 13:03] LABS: BILIRUBIN,URINE NEGATIVE (NEG); CLARITY,URINE CLEAR; COLOR,URINE AMBER; NITRITE,URINE NEGATIVE (NEG); PROTEIN,URINE NEGATIVE (NEG-TRACE)
[2018-06-15] MEDS ORDERED: MORPHINE SULFATE 4 MG/ML VIAL. IV ONE (13:30)
[2018-06-15] MEDS ORDERED: IV NORMAL SALINE 1000ML BAG 1,000 ML IV ONE (13:30)
[2018-06-15] MEDS ORDERED: ONDANSETRON PF 4 MG/2 ML VIAL. IV ONE (13:30)
[2018-06-15 13:50] LABS: BACTERIA,URINE 0 /HPF (0-FEW); SQUAMOUS EPITHELIAL CELL,UR FEW /LPF
[2018-06-15 14:02] LABS: BASO # 0.1 x10^3/uL (0.0-0.2); BASO % 1 % (0-3); CREATININE 0.6 mg/dL (0.6-1.0); EOS # 0.4 x10^3/uL (0.0-0.7); EOS % 3 % (0-3); GFR 152.7; HEMATOCRIT 26.4 % (36.0-47.0); HEMOGLOBIN 9.2 g/dL (12.0-15.5); LYMPH # 3.6 x10^3/uL (1.0-4.8); LYMPH % 26 % (24-48); MEAN CORPUSCULAR HEMOGLOBIN 30 pg (25-35); MEAN CORPUSCULAR HGB CONC 35 g/dL (31-37); MEAN CORPUSCULAR VOLUME 87 fL (79-100); MONO # 0.6 x10^3/uL (0.0-1.1); MONO % 4 % (0-9); NEUT # 9.2 x10^3uL (1.8-7.7); NEUT % 66 % (31-73); PLATELET COUNT 469 x10^3/uL (140-400); POTASSIUM 4.6 mmol/L (3.5-5.1); RED BLOOD COUNT 3.04 x10^6/uL (3.50-5.40); RED CELL DISTRIBUTION WIDTH 17.6 % (11.5-14.5); WHITE BLOOD COUNT 13.8 x10^3/uL (4.0-11.0)
[2018-06-15 14:07] LABS: ALBUMIN 4.3 g/dL (3.4-5.0); TOTAL BILIRUBIN 2.8 mg/dL (0.2-1.0); TOTAL PROTEIN 8.4 g/dL (6.4-8.2)
--- NOTE | 2018-06-15 14:18 | PHYS DOC ---
Past Medical History Past Medical History: Sickle Cell Disease, STD, Other Additional Past Medical Histor: MULTIPLE BLOOD TRANSFUSIONS,CHRONIC PAIN, Past Surgical History: No Surgical History Alcohol Use: None Drug Use: None Adult General Chief Complaint Chief Complaint: ABDOMINAL PAIN HPI HPI Patient is a 22 year old female with history of sickle cell who presents to the ED today complaining of 8 out of 10 generalized abdominal pain that has been going on for the last 3 weeks. Patient denies any fever. Denies any nausea vomiting. 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 Patient is also complaining of vaginal discharge that began yesterday. She states her cycle began and she is now spotting. Denies any chance she is . She states she's been seen in the ED multiple times before for kidney infections. Review of Systems Review of Systems Constitutional: Denies fever or chills [] Eyes: Denies change in visual acuity, redness, or eye pain [] HENT: Denies nasal congestion or sore throat [] Respiratory: Denies cough or shortness of breath [] Cardiovascular: No additional information not addressed in HPI [] GI: Reports generalized abdominal pain and spotting, denies nausea, vomiting, bloody stools or diarrhea [] : Denies dysuria or hematuria [] Musculoskeletal: Denies back pain or joint pain [] Integument: Denies rash or skin lesions [] Neurologic: Denies headache, focal weakness or sensory changes [] All other systems were reviewed and found to be within normal limits, except as documented in this note. Current Medications Current Medications Current Medications Medications (Trade) Dose Ordered Sig/Nicole Start Time Stop Time Status Last Admin Dose Admin Morphine Sulfate (Morphine Sulfate) 4 mg 1X ONCE 06/15/18 13:30 06/15/18 13:31 DC 06/15/18 14:04 4 MG Ondansetron HCl (Zofran) 4 mg 1X ONCE 06/15/18 13:30 06/15/18 13:31 DC 06/15/18 14:02 4 MG Sodium Chloride 1,000 ml @ 1,000 mls/hr 1X ONCE 06/15/18 13:30 06/15/18 14:29 DC 06/15/18 14:00 1,000 MLS/HR Allergies Allergies Allergies Coded Allergies Type Severity Reaction Last Updated Verified iodine Allergy Severe anaphylaxis,rash 12/22/17 Yes Physical Exam Physical Exam Constitutional: Well developed, well nourished, no acute distress, non-toxic appearance. [] HENT: Normocephalic, atraumatic, bilateral external ears normal, oropharynx moist, no oral exudates, nose normal. [] Eyes: PERRLA, EOMI, conjunctiva normal, no discharge. [] Neck: Normal range of motion, no tenderness, supple, no stridor. [] Cardiovascular:Heart rate regular rhythm, no murmur [] Lungs & Thorax: Bilateral breath sounds clear to auscultation [] Abdomen: Bowel sounds normal, soft, no tenderness, no masses, no pulsatile masses. [] Pelvic exam External pelvic appears normal, cervix closed, no CMT, no adnexal tenderness, trace amount of brownish discharge in the vaginal vault consistent with spotting Skin: Warm, dry, no erythema, no rash. [] Back: No tenderness, no CVA tenderness. [] Extremities: No tenderness, no cyanosis, no clubbing, ROM intact, no edema. [] Neurologic: Alert and oriented X 3, normal motor function, normal sensory function, no focal deficits noted. [] Psychologic: Affect normal, judgement normal, mood normal. [] Current Patient Data Vital Signs Vital Signs Date Time Temp Pulse Resp B/P (MAP) Pulse Ox O2 Delivery O2 Flow Rate FiO2 06/15/18 12:35 98.6 81 16 119/64 (82) 97 Room Air 98.6 Lab Values Laboratory Tests Test 06/15/18 12:40 06/15/18 12:45 06/15/18 13:43 Urine Collection Type Unknown Urine Color Мария Urine Clarity Clear Urine pH 6.0 Urine Specific [place] 1.015 Urine Protein Negative mg/dL (NEG-TRACE) Urine Glucose (UA) Negative mg/dL (NEG) Urine Ketones (Stick) Negative mg/dL (NEG) Urine Blood Trace (NEG) Urine Nitrite Negative (NEG) Urine Bilirubin Negative (NEG) Urine Urobilinogen Dipstick 1.0 mg/dL (0.2 mg/dL) Urine Leukocyte Esterase Trace (NEG) Urine RBC 3-5 /HPF (0-2) Urine WBC 5-10 /HPF (0-4) Urine Squamous Epithelial Cells Few /LPF Urine Bacteria 0 /HPF (0-FEW) POC Urine HCG, Qualitative Hcg negative (Negative) White Blood Count 13.8 x10^3/uL (4.0-11.0) H Red Blood Count 3.04 x10^6/uL (3.50-5.40) L Hemoglobin 9.2 g/dL (12.0-15.5) L Hematocrit 26.4 % (36.0-47.0) L Mean Corpuscular Volume 87 fL (79-100) Mean Corpuscular Hemoglobin 30 pg (25-35) Mean Corpuscular Hemoglobin Concent 35 g/dL (31-37) Red Cell Distribution Width 17.6 % (11.5-14.5) H Platelet Count 469 x10^3/uL (140-400) H Neutrophils (%) (Auto) 66 % (31-73) Lymphocytes (%) (Auto) 26 % (24-48) Monocytes (%) (Auto) 4 % (0-9) Eosinophils (%) (Auto) 3 % (0-3) Basophils (%) (Auto) 1 % (0-3) Neutrophils # (Auto) 9.2 x10^3uL (1.8-7.7) H Lymphocytes # (Auto) 3.6 x10^3/uL (1.0-4.8) Monocytes # (Auto) 0.6 x10^3/uL (0.0-1.1) Eosinophils # (Auto) 0.4 x10^3/uL (0.0-0.7) Basophils # (Auto) 0.1 x10^3/uL (0.0-0.2) Reticulocyte Count (auto) 7.6 % (0.5-2.5) H Sodium Level 138 mmol/L (136-145) Potassium Level 4.6 mmol/L (3.5-5.1) Chloride Level 104 mmol/L (98-107) Carbon Dioxide Level 29 mmol/L (21-32) Anion Gap 5 (6-14) L Blood Urea Nitrogen 7 mg/dL (7-20) Creatinine 0.6 mg/dL (0.6-1.0) Estimated GFR (Cockcroft-Gault) 152.7 BUN/Creatinine Ratio 12 (6-20) Glucose Level 90 mg/dL (70-99) Calcium Level 10.0 mg/dL (8.5-10.1) Total Bilirubin 2.8 mg/dL (0.2-1.0) H Aspartate Amino Transferase (AST) 33 U/L (15-37) Alanine Aminotransferase (ALT) 16 U/L (14-59) Alkaline Phosphatase 87 U/L (46-116) Total Protein 8.4 g/dL (6.4-8.2) H Albumin 4.3 g/dL (3.4-5.0) Albumin/Globulin Ratio 1.0 (1.0-1.7) Laboratory Tests 06/15/18 13:43 Laboratory Tests 06/15/18 13:43 Microbiology 06/15/18 Wet Prep - Final, Complete EKG EKG [] Radiology/Procedures Radiology/Procedures []PROCEDURE: CT ABDOMEN PELVIS WO CONTRAST CT Abdomen and Pelvis without contrast History: Abdominal pain, history of sickle cell Technique: Noncontrast CT imaging was performed of the abdomen and pelvis. Multiplanar images are reviewed. Exposure: One or more of the following individualized dose reduction techniques were utilized for this examination: 1. Automated exposure control 2. Adjustment of the mA and/or kV according to patient size 3. Use of iterative reconstruction technique. Comparison: 04/19/2018 Findings: There is no abnormality of the limited visualized lung bases. Accurate evaluation of abdominal visceral organs is limited without intravenous contrast. There is no obvious focal abnormality of the liver, spleen, pancreas. Gallbladder is present without obvious intraluminal abnormality by CT. There is no hydronephrosis or renal calculus. There is no adrenal nodularity. Normal caliber appendix is visualized. There is IUD present. Evaluation of bowel is limited without oral contrast. Bowel is not significantly dilated. There is some variable retained stool in the colon. There are some small nonspecific mesenteric nodes such as in the right lower quadrant with largest of these about 0.6 m short axis dimension. There is no free air or significant free fluid. Impression: 1. No significant acute abnormality is identified on this noncontrast exam, limited evaluation of the bowel. There is retained stool in segments of colon. Electronically signed by: Nirali Neves MD (06/15/2018 3:42 PM) [id number] DICTATED and SIGNED BY: NIRALI NEVES MD DATE: 06/15/18 1542 Course & Med Decision Making Course & Med Decision Making Pertinent Labs and Imaging studies reviewed. (See chart for details) This is a 22-year-old female patient presenting to the ED today complaining of generalized abdominal pain for 3 weeks as well as discharge and spotting that began yesterday. Wet prep noted for BV, discharged with Flagyl. Urine analysis is noted for trace amount of leukocytes, we will wait for culture. CBC with a WBC of 13.8, hemoglobin 9.2, hematocrit 26.4, this is around her baseline, retake 7.6, this is around her baseline. CT of the abdomen and pelvic was negative for any acute findings, noted for constipation. Patient was advised to use [id number] bowel prep regimens. Diet and exercise also recommended. Follow-up with her own doctor in the course of next week. Dragon Disclaimer Dragon Disclaimer This electronic medical record was generated, in whole or in part, using a voice recognition dictation system. Departure Departure Impression: Primary Impression: Abdominal pain Additional Impression: BV (bacterial vaginosis) Disposition: 01 HOME, SELF-CARE Condition: STABLE Referrals: NO PCP (PCP) Follow up with your doctor next week Patient Instructions: Bacterial Vaginosis, [place]-Arca, Constipation, Adult Additional Instructions: You were evaluated in the emergency room for abdominal pain and vaginal discharge. You have bacterial vaginosis, ensure you complete your antibiotics. Your CT was noted for constipation, ensure you take [id number] bowel preparation medications including MiraLAX, magnesium citrate, docusate. Follow- up with your doctor next week. Scripts Metronidazole (FLAGYL) 500 Mg Tablet 1 TAB PO BID, #14 TAB Prov: DARLYN CARABALLO APRN 06/15/18 Problem Qualifiers Primary Impression: Abdominal pain Abdominal location: generalized Qualified Codes: R10.84 - Generalized abdominal pain DARLYN CARABALLO [employer] Jun 15, 2018 14:18
--- NOTE | 2018-06-15 15:44 | RAD ---
CT Abdomen and Pelvis without contrast History: Abdominal pain, history of sickle cell Technique: Noncontrast CT imaging was performed of the abdomen and pelvis. Multiplanar images are reviewed. Exposure: One or more of the following individualized dose reduction techniques were utilized for this examination: 1. Automated exposure control 2. Adjustment of the mA and/or kV according to patient size 3. Use of iterative reconstruction technique. Comparison: 04/19/2018 Findings: There is no abnormality of the limited visualized lung bases. Accurate evaluation of abdominal visceral organs is limited without intravenous contrast. There is no obvious focal abnormality of the liver, spleen, pancreas. Gallbladder is present without obvious intraluminal abnormality by CT. There is no hydronephrosis or renal calculus. There is no adrenal nodularity. Normal caliber appendix is visualized. There is IUD present. Evaluation of bowel is limited without oral contrast. Bowel is not significantly dilated. There is some variable retained stool in the colon. There are some small nonspecific mesenteric nodes such as in the right lower quadrant with largest of these about 0.6 m short axis dimension. There is no free air or significant free fluid. Impression: 1. No significant acute abnormality is identified on this noncontrast exam, limited evaluation of the bowel. There is retained stool in segments of colon. Electronically signed by: Abel Rojas MD (06/15/2018 3:42 PM) [id number]
[2018-06-15] MEDS ORDERED: METR500T PO (15:58)
[2018-06-18 15:15] LABS: GC PROBE Negative (Negative)
== END 2018-06-15 16:06 | disposition home or self-care (01) ==
LOC: ER 12:24
DX: R10.84 Generalized abdominal pain (principal); N76.0 Acute vaginitis; B96.89 Other specified bacterial agents as the cause of diseases classified elsewhere; G89.29 Other chronic pain; Z88.8 Allergy status to other drugs, medicaments and biological substances
CPT/HCPCS: 36415; 74176; 80053; 81001; 81025; 85025; 85045; 87086; 87491; 87591; 96374; 96375; 99285; J2270; J2405; J7030; Q0111

== ENCOUNTER 2018-07-09 16:24 | Emergency (ER) | payer MEDICARE, OTHER ==
[~2018-07-09] VITALS: Ht 167.6 cm; Wt 72.6 kg
[2018-07-09 16:55] VITALS: BP 107/60
[2018-07-09] MEDS ORDERED: predniSONE 10 MG TABLET PO ONE (17:15)
[2018-07-09] MEDS ORDERED: IBUPROFEN 400 MG TABLET. PO ONE (17:15)
[2018-07-09] MEDS ORDERED: AMOX500C PO (18:10)
--- NOTE | 2018-07-09 18:10 | PHYS DOC ---
Past Medical History Past Medical History: Sickle Cell Disease, STD, Other Additional Past Medical Histor: MULTIPLE BLOOD TRANSFUSIONS,CHRONIC PAIN, Past Surgical History: No Surgical History Alcohol Use: None Drug Use: None Adult General Chief Complaint Chief Complaint: SORE THROAT HPI HPI 22-year-old female presents to ER for complaints of 3 day history of sore throat. Patient states she was seen at [facility] on Monday and had a negative strep test. Patient states her symptoms have continued and she feels worse. Patient states she had taken Tylenol yesterday denies [id number] medications today. Patient has felt feverish but has not checked her temperature. Patient denies nausea or vomiting, urinary symptoms, or concerns for . Review of Systems Review of Systems Constitutional: Reports feels feverish with generalized fatigue Eyes: Denies change in visual acuity, redness, or eye pain [] HENT: Denies nasal congestion/ear ache. Reports sore/swollen throat- denies difficulty swallowing Respiratory: Denies cough or shortness of breath [] Cardiovascular: No additional information not addressed in HPI [] GI: Denies abdominal pain, nausea, vomiting, or diarrhea [] : Denies urinary sxs Musculoskeletal: Denies back pain or joint pain [] Integument: Denies rash or skin lesions [] Neurologic: Denies headache, focal weakness or sensory changes [] All other systems were reviewed and found to be within normal limits, except as documented in this note. Current Medications Current Medications Current Medications Medications (Trade) Dose Ordered Sig/Nicole Start Time Stop Time Status Last Admin Dose Admin Ibuprofen (Motrin) 600 mg 1X ONCE 07/09/18 17:15 07/09/18 17:16 DC 07/09/18 17:29 600 MG Prednisone (Prednisone) 50 mg 1X ONCE 07/09/18 17:15 07/09/18 17:16 DC 07/09/18 17:30 50 MG Allergies Allergies Allergies Coded Allergies Type Severity Reaction Last Updated Verified iodine Allergy Severe anaphylaxis,rash 12/22/17 Yes Physical Exam Physical Exam Constitutional: Well developed, well nourished, no acute distress, non-toxic appearance. [] HENT: Normocephalic, atraumatic, bilateral mild erythema at bilateral TM without bulging or perforation- no purulence. Bilat tonsillar swelling/erythema- uvula midline- no oral exudates. No visible peritonsillar abscess. nose normal. No pooling of secretions. Eyes: Pupils equal, conjunctiva normal, no discharge. [] Neck: Normal range of motion, no tenderness/nuchal rigidity, supple, no stridor. Bilat. tonsillar/submandibular adenopathy- tender on palp. Cardiovascular: Heart rate regular rhythm, no murmur [] Lungs & Thorax: Bilateral breath sounds clear to auscultation- resp. equal/nonlabored Abdomen: Bowel sounds normal, soft, no tenderness Skin: Warm, dry, no erythema, no rash. [] Back: No tenderness, no CVA tenderness. [] Extremities: No tenderness, no cyanosis, no clubbing, ROM intact, no edema. [] Neurologic: Alert and oriented X 3, normal motor function, normal sensory function, no focal deficits noted. [] Psychologic: Affect normal, judgement normal, mood normal. [] Current Patient Data Vital Signs Vital Signs Date Time Temp Pulse Resp B/P (MAP) Pulse Ox O2 Delivery O2 Flow Rate FiO2 07/09/18 16:55 99.4 107 20 107/60 (76) 100 Room Air 99.4 Lab Values Laboratory Tests Test 07/09/18 17:05 Group A Streptococcus Rapid Negative (NEGATIVE) EKG EKG [] Radiology/Procedures Radiology/Procedures [] Course & Med Decision Making Course & Med Decision Making Pertinent Labs reviewed. (See chart for details) She was evaluated in the ER for complaints of sore throat which is been ongoing for several days. Patient had negative strep test however on exam patient had bilateral tonsillar swelling with erythema and bilateral adenopathy. Patient had no visible peritonsillar abscess and was having no difficulty swallowing. She was provided with dose of prednisone and ibuprofen while in the ER. Negative strep test was discussed and we will provide patient with amoxicillin prescription with discharge paperwork. Patient advised on increasing fluid intake, Tylenol and/or ibuprofen when necessary, and warm salt swishes.Education provided on signs and symptoms to return to ER. Discharge instructions were discussed. Patient to follow-up with primary care physician if symptoms persist or with any concerns. Dragon Disclaimer Dragon Disclaimer This electronic medical record was generated, in whole or in part, using a voice recognition dictation system. Departure Departure Impression: Primary Impression: Pharyngitis Disposition: HOME, SELF-CARE Condition: STABLE Referrals: NO PCP (PCP) Patient Instructions: Viral and Bacterial Pharyngitis Additional Instructions: Drink plenty of fluids. Tylenol and/or ibuprofen as directed on container as needed for pain. Follow-up with your primary doctor if symptoms persist or with concerns. Scripts Amoxicillin (AMOXICILLIN) 500 Mg Capsule 1 CAP PO BID, #20 CAP 0 Refills Prov: HARRISON NELSON APRN 07/09/18 HARRISON NELSON APRN July 09, 2018 18:10
== END 2018-07-09 18:16 | disposition home or self-care (01) ==
LOC: ER 16:24
DX: J02.9 Acute pharyngitis, unspecified (principal); G89.29 Other chronic pain; Z88.8 Allergy status to other drugs, medicaments and biological substances
CPT/HCPCS: 87070; 87880; 99283; J7512